=== PATIENT | female | born 1945 | race Hispanic/Latino ===

== ENCOUNTER 2019-01-26 15:25 | Emergency (ER) | payer OTHER ==
[2019-01-26] MEDS ORDERED: NA CHLORIDE 0.9% 1,000 ML ONE (16:21)
[2019-01-26 16:27] LABS: Absolute Lymphocytes (CBC) 2.1 K/uL (0.7-4.9); Basophils % 0.4 % (0-1.3); Hematocrit 37.3 % (36.0-45.0); Lymphocytes % 31.6 % (15.3-44.8); MPV 11.4 fL (7.6-11.3); RBC Red Blood Cell Count 4.29 M/uL (3.86-4.86)
[2019-01-26 16:32] LABS: Protime INR 1.01
[2019-01-26 16:46] LABS: ALT/SGPT 44 U/L (12-78); AST/SGOT 38 U/L (15-37); Albumin 3.4 g/dL (3.4-5.0); Alkaline Phosphatase 95 U/L (45-117); BUN Blood Urea Nitrogen 14 mg/dL (7-18); Bicarbonate 26 mmol/L (21-32); Bilirubin Direct 0.1 mg/dL (0-0.2); Bilirubin Total 0.2 mg/dL (0.2-1.0); Glucose Level 235 mg/dL (74-106); NT PRO-BNP 324 pg/mL (<125); Potassium 4.1 mmol/L (3.5-5.1); Protein, Total 7.2 g/dL (6.4-8.2); Sodium Level 141 mmol/L (136-145); Troponin (Emerg Dept Use Only) < 0.02 ng/mL (0.0-0.045)
[2019-01-26 16:48] LABS: Urine Blood NEGATIVE (NEG); Urine Glucose TRACE (NEG); Urine Protein NEGATIVE (NEG)
--- NOTE | 2019-01-26 17:00 | ER ---
Nurse's Notes [facility] Name: Luanne Fuller Age: 73 yrs Sex: Female : 1945 Arrival Date: 01/26/2019 Time: 15:31 Bed 7 Private MD: Polo Strong Diagnosis: Type 1 diabetes mellitus;Essential (primary) hypertension Presentation: 01/26 16:11 Presenting complaint: Patient states: BGL at home >300 for past 2-3 days even w/ meds, ph pt is insulin dependent. Transition of care: patient was not received from another setting of care. Onset of symptoms was January 26, 2019. Risk Assessment: Do you want to hurt yourself or someone else? Patient reports no desire to harm self or others. Initial Sepsis Screen: Does the patient meet any 2 criteria? No. Patient's initial sepsis screen is negative. Does the patient have a suspected source of infection? No. Patient's initial sepsis screen is negative. Care prior to arrival: None. 16:11 Method Of Arrival: Ambulatory ph 16:11 Acuity: DAYANA 3 ph Triage Assessment: 16:15 General: Appears in no apparent distress. comfortable, Behavior is calm, cooperative, ph appropriate for age. Pain: Denies pain. EENT: No deficits noted. Neuro: No deficits noted. Cardiovascular: No deficits noted. Respiratory: No deficits noted. GI: No signs and/or symptoms were reported involving the gastrointestinal system. : No signs and/or symptoms were reported regarding the genitourinary system. Derm: No deficits noted. Musculoskeletal: No deficits noted. Historical: - Allergies: 16:13 PENICILLINS; ph - PMHx: 16:13 Diabetes - IDDM; Hypertension; ph - Immunization history:: Adult Immunizations up to date. - Social history:: Smoking status: Patient/guardian denies using tobacco. - Ebola Screening: : No symptoms or risks identified at this time. - Family history:: not pertinent. Screenin:18 Abuse screen: Denies threats or abuse. Denies injuries from another. Nutritional ph screening: No deficits noted. Tuberculosis screening: No symptoms or risk factors identified. Fall Risk None identified. Assessment: 16:15 General: SEE TRIAGE NOTE. ph 17:36 Reassessment: PT D/C HOME AMBULATORY WITH FAMILY, DX WITH UTI AND HYPERGLYCEMIA. bp Vital Signs: 16:11 BP 179 / 68; Pulse 73; Resp 18; Temp 97.9; Pulse Ox 99% on R/A; Weight 70.31 kg; ph 17:36 BP 164 / 64; Pulse 70; Resp 16; Temp 98; Pulse Ox 97% ; bp ED Course: 15:31 Patient arrived in ED. mr 15:31 Polo Strong MD is Private Physician. mr 16:06 Lucas Smith, CHAPIS is Primary Nurse. rv 16:08 Ranjeet Kimball MD is Attending Physician. ori 16:12 Triage completed. ph 16:13 Arm band placed on. ph 16:18 Patient has correct armband on for positive identification. Bed in low position. Call ph light in reach. Side rails up X2. Adult w/ patient. 16:30 Urine Culture Sent. rv 16:30 Initial lab(s) drawn, by or, sent to lab. Urine collected: clean catch specimen, clear. rv Inserted saline lock: 20 gauge in right forearm, using aseptic technique. Blood collected. 16:42 XRAY Chest (1 view) In Process Unspecified. EDMS 16:56 Polo Strong MD is Referral Physician. ori 17:35 No provider procedures requiring assistance completed. IV discontinued, intact, bp bleeding controlled, No redness/swelling at site. Pressure dressing applied. Administered Medications: 16:29 Drug: NS 0.9% 1000 ml Route: IV; Rate: 1 bolus; Site: right forearm; rv 17:29 Follow up: IV Status: Completed infusion; IV Intake: 1000ml ss 17:26 Drug: LevOfloxacin 500 mg Route: PO; rv 17:29 Follow up: Response: Medication administered at discharge. Point of Care Testing: Blood Glucose: 16:11 Blood Glucose: 246 mg/dL; ph Ranges: Intake: 17:29 IV: 1000ml; Total: 1000ml. Outcome: 16:58 Discharge ordered by . ori 17:37 Discharged to home ambulatory, with family. bp 17:37 Condition: stable 17:37 Discharge instructions given to patient, Instructed on discharge instructions, follow up and referral plans. medication usage, Demonstrated understanding of instructions, follow-up care, medications, Prescriptions given X 1. 17:57 Patient left the ED. bp Signatures: Dispatcher [employer] EDWA Ranjeet Kimball MD MD cha Rivera, Mary mr Smirch, Shelby, RN RN ss Tylor, Ania, RN RN ph Luis Eduardo, Kevon, RN RN bp Lucas Smith, RN RN rv
--- NOTE | 2019-01-26 17:01 | EDPHYS ---
Physician Documentation [facility] Name: Luanne Fuller Age: 73 yrs Sex: Female : 1945 Arrival Date: 01/26/2019 Time: 15:31 Bed 7 Private MD: Polo Strong ED Physician Ranjeet Kimball HPI: 01/26 16:53 This 73 yrs old Female presents to ER via Ambulatory with complaints of High ori Blood Sugar. 16:53 The patient or guardian reports hyperglycemia. Onset: The symptoms/episode ori began/occurred 3 day(s) ago. Associated signs and symptoms: Pertinent positives: None. Pertinent negatives: None. Current symptoms: In the emergency department the patient's symptoms are unchanged from the initial presentation. The patient has experienced similar episodes in the past, several times. Historical: - Allergies: 16:13 PENICILLINS; ph - PMHx: 16:13 Diabetes - IDDM; Hypertension; ph - Immunization history:: Adult Immunizations up to date. - Social history:: Smoking status: Patient/guardian denies using tobacco. - Ebola Screening: : No symptoms or risks identified at this time. - Family history:: not pertinent. ROS: 16:53 Constitutional: Negative for fever, chills, and weight loss, Eyes: Negative for injury, ori pain, redness, and discharge, ENT: Negative for injury, pain, and discharge, Neck: Negative for injury, pain, and swelling, Cardiovascular: Negative for chest pain, palpitations, and edema, Respiratory: Negative for shortness of breath, cough, wheezing, and pleuritic chest pain, Abdomen/GI: Negative for abdominal pain, nausea, vomiting, diarrhea, and constipation, Back: Negative for injury and pain, : Negative for injury, bleeding, discharge, and swelling, MS/Extremity: Negative for injury and deformity, Skin: Negative for injury, rash, and discoloration, Neuro: Negative for headache, weakness, numbness, tingling, and seizure, Psych: Negative for depression, anxiety, suicide ideation, homicidal ideation, and hallucinations, Allergy/Immunology: Negative for hives, rash, and allergies, Endocrine: Negative for neck swelling, polydipsia, polyuria, polyphagia, and marked weight changes, Hematologic/Lymphatic: Negative for swollen nodes, abnormal bleeding, and unusual bruising. Exam: 16:53 Constitutional: This is a well developed, well nourished patient who is awake, alert, ori and in no acute distress. Head/Face: Normocephalic, atraumatic. Eyes: Pupils equal round and reactive to light, extra-ocular motions intact. Lids and lashes normal. Conjunctiva and sclera are non-icteric and not injected. Cornea within normal limits. Periorbital areas with no swelling, redness, or edema. ENT: Nares patent. No nasal discharge, no septal abnormalities noted. Tympanic membranes are normal and external auditory canals are clear. Oropharynx with no redness, swelling, or masses, exudates, or evidence of obstruction, uvula midline. Mucous membranes moist. Neck: Trachea midline, no thyromegaly or masses palpated, and no cervical lymphadenopathy. Supple, full range of motion without nuchal rigidity, or vertebral point tenderness. No Meningismus. Chest/axilla: Normal chest wall appearance and motion. Nontender with no deformity. No lesions are appreciated. Cardiovascular: Regular rate and rhythm with a normal S1 and S2. No gallops, murmurs, or rubs. Normal PMI, no JVD. No pulse deficits. Respiratory: Lungs have equal breath sounds bilaterally, clear to auscultation and percussion. No rales, rhonchi or wheezes noted. No increased work of breathing, no retractions or nasal flaring. Abdomen/GI: Soft, non-tender, with normal bowel sounds. No distension or tympany. No guarding or rebound. No evidence of tenderness throughout. Back: No spinal tenderness. No costovertebral tenderness. Full range of motion. Female : Normal external genitalia. Skin: Warm, dry with normal turgor. Normal color with no rashes, no lesions, and no evidence of cellulitis. MS/ Extremity: Pulses equal, no cyanosis. Neurovascular intact. Full, normal range of motion. Neuro: Awake and alert, GCS 15, oriented to person, place, time, and situation. Cranial nerves II-XII grossly intact. Motor strength 5/5 in all extremities. Sensory grossly intact. Cerebellar exam normal. Normal gait. Psych: Awake, alert, with orientation to person, place and time. Behavior, mood, and affect are within normal limits. Vital Signs: 16:11 BP 179 / 68; Pulse 73; Resp 18; Temp 97.9; Pulse Ox 99% on R/A; Weight 70.31 kg; ph 17:36 BP 164 / 64; Pulse 70; Resp 16; Temp 98; Pulse Ox 97% ; bp MDM: 16:[address] [facility] 16:54 Data reviewed: vital signs, nurses notes, lab test result(s), EKG, radiologic studies, ori plain films. 01/26 16:09 Order name: Basic Metabolic Panel; Complete Time: 16:52 [facility] 01/26 16:09 Order name: CBC with Diff [facility] 01/26 16:09 Order name: LFT's; Complete Time: 16:52 [facility] 01/26 16:09 Order name: Magnesium; Complete Time: 16:52 [facility] 01/26 16:09 Order name: NT PRO-BNP; Complete Time: 16:52 [facility] 01/26 16:09 Order name: PT-INR; Complete Time: 16:52 [facility] 01/26 16:09 Order name: Troponin (emerg Dept Use Only); Complete Time: 16:52 [facility] 01/26 16:09 Order name: XRAY Chest (1 view) [facility] 01/26 16:09 Order name: EKG; Complete Time: 16:12 [facility] 01/26 16:09 Order name: Urine Culture [facility] 01/26 16:10 Order name: Lipase; Complete Time: 16:55 [facility] 01/26 16:31 Order name: Urine Dipstick--Ancillary (enter results); Complete Time: 16:52 01/26 16:09 Order name: Cardiac monitoring; Complete Time: 16:30 [facility] 01/26 16:09 Order name: EKG - Nurse/Tech; Complete Time: 16:51 [facility] 01/26 16:09 Order name: IV Saline Lock; Complete Time: 16:30 [facility] 01/26 16:09 Order name: Labs collected and sent; Complete Time: 16:30 [facility] 01/26 16:09 Order name: O2 Per Protocol; Complete Time: 16:30 [facility] 01/26 16:09 Order name: O2 Sat Monitoring; Complete Time: 16:30 [facility] 01/26 16:09 Order name: Urine Dipstick-Ancillary (obtain specimen); Complete Time: 16:30 [facility] 01/26 16:56 Order name: Blood Glucose Level; Complete Time: 17:26 [facility] Administered Medications: 16:29 Drug: NS 0.9% 1000 ml Route: IV; Rate: 1 bolus; Site: right forearm; rv 17:29 Follow up: IV Status: Completed infusion; IV Intake: 1000ml 17:26 Drug: LevOfloxacin 500 mg Route: PO; rv 17:29 Follow up: Response: Medication administered at discharge. Point of Care Testing: Blood Glucose: 16:11 Blood Glucose: 246 mg/dL; ph Ranges: Critical Glucose Levels:Adult <50 mg/dl or >400 mg/dl <40 mg/dl or >180 mg/dl Disposition: 01/26/19 16:58 Discharged to Home. Impression: Type 1 diabetes mellitus, Essential (primary) hypertension. - Condition is Stable. - Discharge Instructions: Type 1 Diabetes Mellitus, Diagnosis, Adult, Hypertension, Hypertension, [id number], How to Take Your Blood Pressure, [id number], Managing Your Hypertension, Type 1 Diabetes Mellitus, Diagnosis, Adult, Nzpp-[id number], Type 1 Diabetes Mellitus, Self Care, Adult, [id number]. - Prescriptions for Levaquin 250 mg Oral Tablet - take 1 tablet by ORAL route once daily for 6 days; 6 tablet. - Medication Reconciliation Form, Thank You Letter, Antibiotic Education, Prescription Opioid Use form. - Follow up: Polo Strong MD; When: 2 - 3 days; Reason: Recheck today's complaints, Continuance of care, Re-evaluation by your physician. - Problem is new. - Symptoms have improved. Signatures: Dispatcher [employer] EDRanjeet Garza MD MD cha Hall, Patricia, RN RN Kevon Hoff RN RN Lucas Schofield, CHAPIS [place] Amada Solares RN Corrections: (The following items were deleted from the chart) 17:57 16:58 01/26/2019 16:58 Discharged to Home. Impression: Type 1 diabetes mellitus; bp Essential (primary) hypertension. Condition is Stable. Forms are Medication Reconciliation Form, Thank You Letter, Antibiotic Education, Prescription Opioid Use. Follow up: Polo Strong; When: 2 - 3 days; Reason: Recheck today's complaints, Continuance of care, Re-evaluation by your physician. Problem is new. Symptoms have improved. ori
[2019-01-26] MEDS ORDERED: levoFLOXacin 500 MG TAB ONE (17:10)
--- NOTE | 2019-01-26 17:10 | RAD REPORT ---
EXAM DESCRIPTION: RAD - Chest Single View - 01/26/2019 4:41 pm CLINICAL HISTORY: Cough COMPARISON: October 2013 TECHNIQUE: AP portable chest image was obtained 1638 hour . FINDINGS: Is a lung parenchymal process seen. Lung markings are accentuated by shallow inspiration. Heart size is prominent similar to comparison. No acute vascular engorgement. No measurable pleural e ffusion and no pneumothorax. No acute bony abnormality seen. No acute aortic findings suspected. IMPRESSION: No acute cardiopulmonary process. No significant change from comparison.
[2019-01-26 19:21] VITALS: BP 164/64; TEMP 98; O2SAT 97
--- NOTE | 2019-01-27 10:42 | EKG ---
Test Date: 2019-01-26 Test Time: 17:07:34 Club Waiter/Waitress: UDAY MEASUREMENT RESULTS: Intervals: Rate: 67 NJ: 104 QRSD: 84 QT: 412 QTc: 435 [place]: P: 2 NJ: 104 QRS: 14 T: 72 INTERPRETIVE STATEMENTS: Sinus rhythm with short NJ Nonspecific T wave abnormality Abnormal ECG Compared to ECG 10/22/2013 11:43:55 Short NJ interval now present T-wave abnormality still present Electronically Signed On 01-27-19 10:41:42 CDT by Damion Judge
== END 2019-01-26 17:57 | disposition home or self-care (01) ==
LOC: ER 15:25
DX: I10 Essential (primary) hypertension (principal); Z88.0 Allergy status to penicillin
CPT/HCPCS: 93005; 87088; 85025; 87086; 80048; 36415; 83735; 85610; 82962; 80076; 81003; 84484; 83690; 83880; 71045; 96360; 99284; J7030; 87077; 87186

== ENCOUNTER 2019-08-16 17:52 | Inpatient (IN) | payer OTHER ==
--- OUTSIDE RECORDS SUMMARY | 2019-08-16 17:53 | XMS REPORT ---
:1945 Author Organization [employer] Care Team Providers Name Role Phone Matty Hicks Provider Role Unavailable Allergies, Adverse Reactions, Alerts Substance Reaction Event Type N.K.D.A. 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 Problem Type 2 diabetes mellitus with E11.65 Active hyperglycemia, without long-term current use of insulin Problem Essential hypertension I10 Active Assessment Type 2 diabetes mellitus with E11.65 Active hyperglycemia, without long-term current use of insulin Assessment Essential hypertension I10 Active Problem Chronic Idiopathic 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 Active Medications Medication Code Code Instructions Start End Status Dosage System Date Date Aspir-Low [facility] 20843686543 81 MG Orally Active 1 tablet Once a day Docusate Sodium [facility] 02414875508 100 MG Orally Active 1 tablet as Twice a day needed Combigan [facility] 08490455450 0.2-0.5 % Active 1 drop into Ophthalmic affected eye Twice a day Azopt [facility] 54992447503 1 % Ophthalmic Active 1 drop into Three times a affected eye day Metformin HCl [facility] 70833318696 1000 MG Orally Active 1 tablet Twice a day with meals Losartan [facility] 15740507864 100-25 MG Active 1 tablet Potassium-HCTZ Orally Once a day Amitiza [facility] 25841083109 24 MCG Orally Active 1 capsule Twice a day with food and water Ozempic [facility] 68439167166 0.25 or 0.5 Active Inject 0.5 MG/DOSE mg SC once Subcutaneous weekly Once a week Lumigan [facility] 70528605016 0.01 % Active 1 drop into Ophthalmic Once affected eye a day in the evening Glimepiride [facility] 21343628965 1 MG Orally Active 1 tablet Twice a day with breakfast or the first main meal of the day Results No Known Results Summary Purpose [employer] Submission
[2019-08-16 19:30] LABS: Absolute Lymphocytes (CBC) 0.8 K/uL (0.7-4.9); Basophils % 0.1 % (0-1.3); Hematocrit 36.6 % (36.0-45.0); Lymphocytes % 4.5 % (15.3-44.8); MPV 11.5 fL (7.6-11.3); RBC Red Blood Cell Count 4.18 M/uL (3.86-4.86)
[2019-08-16 19:34] LABS: Protime INR 1.21
[2019-08-16] MEDS ORDERED: NA CHLORIDE 0.9% 500 ML ONE (19:44)
[2019-08-16 19:49] LABS: ALT/SGPT 21 U/L (12-78); AST/SGOT 18 U/L (15-37); Alkaline Phosphatase 101 U/L (45-117); Amylase Level 36 U/L (25-115); BUN Blood Urea Nitrogen 18 mg/dL (7-18); Bicarbonate 25 mmol/L (21-32); Bilirubin Direct 0.2 mg/dL (0-0.2); Bilirubin Total 0.6 mg/dL (0.2-1.0); CKMB Creatine Kinase MB < 1.0 ng/mL (0.3-3.6); Creatine Phosphokinase 219 U/L (26-192); Glucose Level 152 mg/dL (74-106); Lipase 117 U/L (73-393); Potassium 3.2 mmol/L (3.5-5.1); Sodium Level 138 mmol/L (136-145); Troponin (Emerg Dept Use Only) 0.08 ng/mL (0.0-0.045)
--- NOTE | 2019-08-16 19:51 | RAD REPORT ---
EXAM DESCRIPTION: Leo Single View08/16/2019 7:24 pm CLINICAL HISTORY: fever COMPARISON: 2018 FINDINGS: The lungs appear clear of acute infiltrate. The heart is normal size IMPRESSION: No acute abnormalities displayed
[2019-08-16 19:56] LABS: Blood Morphology Comment NOT SEEN (NOT SEEN); Platelet Estimate ADEQ; Urine White Blood Cell Casts OK
--- NOTE | 2019-08-16 20:53 | RAD REPORT ---
EXAM DESCRIPTION: CT - Abdomen Pelvis W Contrast - 08/16/2019 8:31 pm CLINICAL HISTORY: Abdominal pain COMPARISON: none. TECHNIQUE: Computed axial tomography of the abdomen pelvis was obtained. 100 cc Isovue-300 was admin istered intravenously. Oral contrast was not requested which limits evaluation of bowel. All CT scans are performed using dose optimization technique as appropriate and may include automated exposure control or mA/KV adjustment according to patient size. FINDINGS: 17 millimeter gallstone. The gallbladder is mildly distended. The liver, spleen, pancreas, and adrenals appear unremarkable. There is no evidence of diverticulitis. A thickened appendix is not seen Spondylosis L5 There is enhancement of the wall of the right renal pelvis and right ureter Small ventral hernia contains fat. Small umbilical hernia contains fat. An additional right periumbil ical hernia contains fat. The neck measures 20 millimeters IMPRESSION: Cholelithiasis. Mild gallbladder distention Enhancement of the wall of the right renal pelvis a right ureter may indicate inflammation/infection
[2019-08-16] MEDS ORDERED: CEFTRIAXONE/SWI 1gm 1 GM/10 ML SYR ONE (21:09)
[2019-08-16 21:16] LABS: Urine Bacteria 20-50 /HPF (<20); Urine Culture Reflex Order REFLEXED; Urine Mucus 2+ /HPF (NONE SEEN)
[2019-08-16] MEDS ORDERED: ONDANSETRON 4 MG/2 ML VIAL IV PRN (21:20)
[2019-08-16] MEDS ORDERED: ALPRAZOLAM 0.25 MG TABLET PO PRN (21:20)
--- NOTE | 2019-08-16 21:23 | ER ---
Nurse's Notes [facility] Name: Luanne Fuller Age: 73 yrs Sex: Female : 1945 Arrival Date: 08/16/2019 Time: 17:54 Bed 18 Private MD: Diagnosis: Urinary tract infection, site not specified-Pyelonephritis;Leukocytosis;Abdominal and pelvic pain Presentation: 08/15 18:37 Acuity: DAYANA 3 ae4 18:37 Chief complaint: Patient states: Chills, fever, and vomiting. Coronavirus screen: The ae4 patient has NOT traveled to a country currently being monitored by the [facility] within the last 14 days. Proceed with normal triage procedures. The patient has NOT had contact with any known and/or suspected case of coronavirus. Proceed with normal triage procedures. Initial Sepsis Screen: Does the patient meet any 2 criteria? No. Patient's initial sepsis screen is negative. Does the patient have a suspected source of infection?. Risk Assessment: Do you want to hurt yourself or someone else? Patient reports no desire to harm self or others. 18:37 Method Of Arrival: Ambulatory ae4 18:57 Ebola Screen: Patient negative for fever greater than or equal to 101.5 degrees ae4 Fahrenheit, and additional compatible Ebola Virus Disease symptoms Patient denies exposure to infectious person. Patient denies travel to an Ebola-affected area in the 21 days before illness onset. 22:41 Coronavirus screen: The patient has NOT traveled to a country currently being monitored mg2 by the [facility] within the last 14 days. Initial Sepsis Screen: Does the patient meet any 2 criteria? No. Patient's initial sepsis screen is negative. Does the patient have a suspected source of infection? No. Patient's initial sepsis screen is negative. Risk Assessment: Do you want to hurt yourself or someone else? Patient reports no desire to harm self or others. 22:42 Onset of symptoms was August 2019. mg2 Triage Assessment: 21:12 General: Appears. ae4 Historical: - Allergies: 21:30 PENICILLINS; ae4 - Home Meds: 21:31 Metformin Oral [Active]; glimepiride 1 mg Oral tab 1 tab once daily [Active]; ae4 - PMHx: 21:32 Diabetes - IDDM; Hypertension; ae4 - Immunization history:: Adult Immunizations up to date. - Social history:: Smoking status: Patient denies any tobacco usage or history of. Screenin:02 Abuse screen: Denies threats or abuse. Nutritional screening: No deficits noted. ae4 Tuberculosis screening: No symptoms or risk factors identified. Fall Risk None identified. Assessment: 18:35 General: Appears in no apparent distress. uncomfortable, Behavior is calm, cooperative. ae4 Pain: Complains of pain in abdomen. Neuro: Level of Consciousness is awake, alert, obeys commands, Oriented to person, place, time, situation, Appropriate for age. Cardiovascular: Heart tones S1 S2 present Patient's skin is warm and dry. Respiratory: Airway is patent Respiratory effort is even, unlabored, Respiratory pattern is regular, symmetrical, Breath sounds are clear bilaterally. GI: Abdomen is round non-distended, Bowel sounds present X 4 quads. GI: Reports vomiting. EENT: No signs and/or symptoms were reported regarding the EENT system. Derm: Skin is pale. Musculoskeletal: Reports Generalized weakness. 18:35 : Urine is cloudy, Denies burning with urination, pain urinary frequency, urgency. ae4 19:00 Reassessment: Patient appears in no apparent distress at this time. Patient and/or ae4 family updated on plan of care and expected duration. Pain level reassessed. 20:00 Reassessment: Patient appears in no apparent distress at this time. Patient and/or ae4 family updated on plan of care and expected duration. Pain level reassessed. Patient states feeling better. 21:15 Reassessment: Provider is at bedside discussing plan of care. ae4 22:09 Reassessment: Patient appears in no apparent distress at this time. Patient and/or ae4 family updated on plan of care and expected duration. Pain level reassessed. Family at bedside Patient states feeling better. Vital Signs: 18:37 BP 125 / 62; Pulse 95; Resp 16; Pulse Ox 97% on R/A; Weight 66.68 kg (R); Height 5 ft. ae4 2 in. (157.48 cm) (R); 18:46 Temp 98.6(TE); ss 22:09 BP 128 / 46; Pulse 79; Resp 16; Pulse Ox 98% on R/A; ae4 18:37 Body Mass Index 26.89 (66.68 kg, 157.48 cm) ae4 ED Course: 17:54 Patient arrived in ED. rg4 17:56 Subhash Thomson MD is Attending Physician. kdr 18:38 Triage completed. ae4 18:46 Arm band placed on right wrist. ss 19:01 Arsh Ochoa FNP-C is [facility] la1 19:08 Gray Hoffman, RN is Primary Nurse. ae4 19:15 Inserted saline lock: 18 gauge in right antecubital area, using aseptic technique. ae4 Blood collected. 19:24 Chest Single View XRAY In Process Unspecified. EDMS 20:32 CT Abd/Pelvis - IV Contrast Only In Process Unspecified. EDMS 21:20 Cecilia Plata MD is Hospitalizing Provider. la1 21:21 No provider procedures requiring assistance completed. Inserted. ae4 22:41 Patient admitted, IV remains in place. mg2 22:42 Patient has correct armband on for positive identification. mg2 Administered Medications: 19:50 Drug: NS 0.9% 500 ml Route: IV; Rate: bolus; Site: right antecubital; ae4 21:10 Drug: Rocephin 1 grams Route: IV; Rate: calculated rate; Site: right antecubital; ae4 Outcome: 21:22 Decision to Hospitalize by Provider. la1 22:41 Admitted to Med/surg accompanied by tech, via wheelchair, room 207, with chart, Report mg2 called to CHAPIS Torre 22:41 Condition: improved 22:41 Instructed on the need for admit, Demonstrated understanding of instructions. 23:01 Patient left the ED. mg2 Signatures: Dispatcher [employer] EDLA Subhash Thomson MD MD kdr Amada Solares RN RN ss Arsh Ochoa FNP-C FNP-Earline Putnam rg4 Viral Magallon RN RN mg2 Gray Hoffman, RN RN ae4 Corrections: (The following items were deleted from the chart) 22:13 22:09 Pulse 79bpm; Resp 79bpm; Pulse Ox 98% RA; ae4 ae4 22:42 21:32 Ebola Screen: Patient negative for fever greater than or equal to 101.5 degrees ae4 Fahrenheit, and additional compatible Ebola Virus Disease symptoms Patient denies exposure to infectious person. Patient denies travel to an Ebola-affected area in the 21 days before illness onset. ae4 22:42 18:35 : Urine is cloudy, ae4 ae4
--- NOTE | 2019-08-16 21:23 | EDPHYS ---
Physician Documentation [facility] Name: Luanne Fuller Age: 73 yrs Sex: Female : 1945 Arrival Date: 08/16/2019 Time: 17:54 Bed 18 Private MD: ED Physician Subhash Thomson HPI: 08/15 20:45 This 73 yrs old Female presents to ER via Unassigned with complaints of Fever, la1 Chills, Vomiting. 20:45 The patient reports fever, not measured (subjective). Onset: The symptoms/episode la1 began/occurred 2 day(s) ago. Modifying factors: unaware of sick contact. Denies recent travel. Associated signs and symptoms: Pertinent positives: backache, nausea, vomiting, abdominal pain. Severity of symptoms: At their worst the symptoms were moderate. The patient has not experienced similar symptoms in the past. Historical: - Allergies: 21:30 PENICILLINS; ae4 - Home Meds: 21:31 Metformin Oral [Active]; glimepiride 1 mg Oral tab 1 tab once daily [Active]; ae4 - PMHx: 21:32 Diabetes - IDDM; Hypertension; ae4 - Immunization history:: Adult Immunizations up to date. - Social history:: Smoking status: Patient denies any tobacco usage or history of. ROS: 20:45 Constitutional: Negative for fever, chills, and weight loss, Eyes: Negative for injury, la1 pain, redness, and discharge, ENT: Negative for injury, pain, and discharge, Neck: Negative for injury, pain, and swelling, Cardiovascular: Negative for chest pain, palpitations, and edema, Respiratory: Negative for shortness of breath, cough, wheezing, and pleuritic chest pain. 20:45 MS/Extremity: Negative for injury and deformity, Skin: Negative for injury, rash, and discoloration, Neuro: Negative for headache, weakness, numbness, tingling, and seizure. 20:45 Abdomen/GI: Positive for abdominal pain, nausea and vomiting. 20:45 : Positive for urinary symptoms, urinary frequency, burning with urination. Exam: 20:46 Constitutional: This is a well developed, well nourished patient who is awake, alert, la1 and in no acute distress. Head/Face: Normocephalic, atraumatic. Eyes: Pupils equal round and reactive to light, extra-ocular motions intact. ENT: Mucous membranes moist. Neck: Trachea midline Chest/axilla: Normal chest wall appearance and motion. Nontender with no deformity. No lesions are appreciated. Cardiovascular: Regular rate and rhythm with a normal S1 and S2. No gallops, murmurs, or rubs. Normal PMI, no JVD. No pulse deficits. Respiratory: Lungs have equal breath sounds bilaterally, clear to auscultation 20:46 Back: No spinal tenderness. No costovertebral tenderness. Full range of motion. Skin: Warm, dry with normal turgor. Normal color with no rashes, no lesions, and no evidence of cellulitis. 20:46 Abdomen/GI: Inspection: abdomen appears normal, obese Bowel sounds: normal, in all quadrants, Palpation: soft, in all quadrants, mild abdominal tenderness, in the right lower quadrant, Indicators: McBurney's point is tender, Partida's sign is negative, Rovsing's sign is negative, Obturator sign is negative, Psoas sign is negative. Vital Signs: 18:37 BP 125 / 62; Pulse 95; Resp 16; Pulse Ox 97% on R/A; Weight 66.68 kg (R); Height 5 ft. ae4 2 in. (157.48 cm) (R); 18:46 Temp 98.6(TE); ss 22:09 BP 128 / 46; Pulse 79; Resp 16; Pulse Ox 98% on R/A; ae4 18:37 Body Mass Index 26.89 (66.68 kg, 157.48 cm) ae4 MDM: 19:01 Patient medically screened. la1 21:19 Data reviewed: vital signs, nurses notes, lab test result(s), radiologic studies, I la1 have discussed the patient's presentation/case with the attending Emergency Department Physician; and as a result, I will admit patient. Data interpreted: Pulse oximetry: on room air is 97 %. Interpretation: normal. Counseling: I had a detailed discussion with the patient and/or guardian regarding: the historical points, exam findings, and any diagnostic results supporting the discharge/admit diagnosis, lab results, radiology results, the need for further work-up and treatment in the hospital. Physician consultation: Cecilia Plata MD was called at 21:19, was contacted at 21:19, regarding admission, and will see patient in inpatient room. 08/15 18:52 Order name: Amylase, Serum kdr 08/15 18:52 Order name: Basic Metabolic Panel [facility] 08/15 18:52 Order name: Blood Culture Adult (2) kdr 08/15 18:52 Order name: CBC with Diff; Complete Time: 20:12 kdr 08/15 18:52 Order name: Ckmb kdr 08/15 18:52 Order name: CPK; Complete Time: 20:12 kdr 08/15 18:52 Order name: Lactate; Complete Time: 20:12 kdr 08/15 18:52 Order name: LFT's; Complete Time: 20:12 kdr 08/15 18:52 Order name: Lipase; Complete Time: 20:12 kdr 08/15 18:52 Order name: Procalcitonin; Complete Time: 20:12 kdr 08/15 18:52 Order name: Protime (+inr); Complete Time: 20:12 kdr 08/15 18:52 Order name: Ptt, Activated; Complete Time: 20:12 kdr 08/15 18:52 Order name: Troponin (emerg Dept Use Only); Complete Time: 20:12 kdr 08/15 18:52 Order name: Urine Microscopic Only kdr 08/15 18:55 Order name: Amylase Level; Complete Time: 20:12 EDMS 08/15 18:55 Order name: Basic Metabolic Panel; Complete Time: 20:12 EDMS 08/15 18:55 Order name: CKMB Creatine Kinase MB; Complete Time: 20:12 EDMS 08/15 19:25 Order name: Glucose, Ancillary Testing; Complete Time: 20:12 EDMS 08/15 19:28 Order name: Flu; Complete Time: 21:00 la1 08/15 19:36 Order name: CBC Smear Scan; Complete Time: 20:12 EDMS 08/15 21:19 Order name: Urine Culture EDMS 08/15 21:21 Order name: Urine Dipstick--Ancillary (enter results) sp 08/15 21:25 Order name: Urinalysis EDMS 08/15 21:25 Order name: CBC with Automated Diff EDMS 08/15 21:25 Order name: CBC with Automated Diff EDMS 08/15 21:25 Order name: Comprehensive Metabolic Panel EDWA 08/15 21:25 Order name: Comprehensive Metabolic Panel EDWA 08/15 21:25 Order name: Lactate EDWA 08/15 21:25 Order name: Lactate EDWA 08/15 21:25 Order name: Magnesium EDWA 08/15 18:52 Order name: Chest Single View XRAY; Complete Time: 20:12 kdr 08/15 18:52 Order name: Accucheck; Complete Time: 19:13 kdr 08/15 18:52 Order name: Cardiac monitoring; Complete Time: 19: kdr 08/15 18:52 Order name: EKG - Nurse/Tech; Complete Time: 20:06 kdr 08/15 18:52 Order name: IV Saline Lock - Large Bore; Complete Time: 19: kdr 08/15 18:52 Order name: Labs collected and sent; Complete Time: 19:24 kdr 08/15 18:52 Order name: O2 Per Protocol; Complete Time: 19: kdr 08/15 18:52 Order name: O2 Sat Monitoring; Complete Time: 19: kdr 08/15 18:52 Order name: Urine Dipstick-Ancillary (obtain specimen); Complete Time: : kdr 08/15 20:15 Order name: CT Abd/Pelvis - IV Contrast Only; Complete Time: 21:00 la1 08/15 21:25 Order name: CONS Physician Consult [facility] 08/15 21:25 Order name: NPO [facility] 08/15 21:25 Order name: Magnesium [facility] 08/15 21:25 Order name: Phosphorus [facility] 08/15 21:25 Order name: Phosphorus [facility] 08/15 21:25 Order name: NT PRO-BNP [facility] 08/15 21:25 Order name: NT PRO-BNP [facility] 08/15 21:25 Order name: Protime (+INR) [facility]WA 08/15 21:25 Order name: Protime (+INR) [facility] 08/15 21:25 Order name: PTT, Activated Partial Thromb [facility] 08/15 21:25 Order name: PTT, Activated Partial Thromb [facility]WA 08/15 21:25 Order name: Troponin I [facility] 08/15 21:25 Order name: Troponin I [facility] 08/15 21:25 Order name: Troponin I EDWA Administered Medications: 19:50 Drug: NS 0.9% 500 ml Route: IV; Rate: bolus; Site: right antecubital; ae4 21:10 Drug: Rocephin 1 grams Route: IV; Rate: calculated rate; Site: right antecubital; ae4 Disposition: 08/16/19 21:22 Hospitalization ordered by Cecilia Plata for Observation. Preliminary diagnosis are Urinary tract infection, site not specified - Pyelonephritis, Leukocytosis, Abdominal and pelvic pain. - Bed requested for Telemetry/MedSurg (observation). - Status is Observation. mg2 - Condition is Stable. - Problem is new. - Symptoms have improved. Addendum: 08/19/2019 10:47 Co-signature as Attending Physician, Subhash Thomson MD I agree with the assessment and k dr plan of care. Signatures: Dispatcher [employer] EDWA Subhash Thomson MD MD [facility] Marisel Juarez RN RN lp1 Arsh Ochoa, UTILITIES SERVICE INVESTIGATOR-C UTILITIES SERVICE INVESTIGATOR-Cla1 Viral Magallon RN RN mg2 Gray Hoffman RN RN ae4 Corrections: (The following items were deleted from the chart) 08/15 22:22 21:22 Hospitalization Ordered by Cecilia Plata MD for Observation. Preliminary lp1 diagnosis is Urinary tract infection, site not specified - Pyelonephritis; Leukocytosis; Abdominal and pelvic pain. Bed requested for Telemetry/MedSurg (observation). Status is Observation. Condition is Stable. Problem is new. Symptoms have improved. la1 23:01 22:22 08/16/2019 21:22 Hospitalization Ordered by Cecilia Plata MD for Observation. mg2 Preliminary diagnosis is Urinary tract infection, site not specified - Pyelonephritis; Leukocytosis; Abdominal and pelvic pain. Bed requested for Telemetry/MedSurg (observation). Status is Observation. Condition is Stable. Problem is new. Symptoms have improved. lp1
[2019-08-16 21:26] LABS: Urine Blood 3+ (NEG); Urine Glucose NEGATIVE (NEG); Urine Protein 2+ (NEG); Urine Specific Gravity 1.015 (1.005-1.030); Urine pH 6.5 (5.0-7.0)
[2019-08-16] MEDS ORDERED: Levofloxacin500mg IV 500 MG/100 ML BAG IV SCH (22:00)
[2019-08-16 23:30] VITALS: BMI 23.3
[2019-08-16] MEDS: METRONIDAZOLE 500mg IVPB 500 MG/100 ML BAG IV SCH (23:54)
[2019-08-16] MEDS: NA CHLORIDE 0.9% 1,000 ML IV SCH (23:54)
[2019-08-17] MEDS: METRONIDAZOLE 500mg IVPB 500 MG/100 ML BAG IV SCH ×2 (05:21→12:05)
[2019-08-17 05:46] LABS: Absolute Lymphocytes (CBC) 0.6 K/uL (0.7-4.9); Basophils % 0.1 % (0-1.3); Hematocrit 33.8 % (36.0-45.0); Lymphocytes % 3.1 % (15.3-44.8); MPV 10.9 fL (7.6-11.3); RBC Red Blood Cell Count 3.96 M/uL (3.86-4.86)
[2019-08-17 05:52] LABS: Protime INR 1.32
[2019-08-17 06:08] LABS: Albumin 2.6 g/dL (3.4-5.0); Bilirubin Total 0.4 mg/dL (0.2-1.0); Magnesium 1.7 mg/dL (1.8-2.4); Phosphorus 1.4 mg/dL (2.5-4.9); Potassium 3.4 mmol/L (3.5-5.1); Protein, Total 6.4 g/dL (6.4-8.2)
[2019-08-17] MEDS ORDERED: MAGNESIUM SULFATE 1 gm IVPB 1 GM/100 ML BAG IV ONE (06:30)
[2019-08-17 06:57] LABS: Blood Morphology Comment NOT SEEN (NOT SEEN); Platelet Estimate DECR
--- NOTE | 2019-08-17 06:59 | P.HP ---
Certification for Inpatient Patient admitted to: Inpatient With expected LOS: >2 Midnights Patient will require the following post-hospital care: None Practitioner: I am a practitioner with admitting privileges, knowledge of patient current condition, hospital course, and medical plan of care. Services: Services provided to patient in accordance with Admission requirements found in Title 42 Section 412.3 of the Code of Federal Regulations Patient History Date of Service: 08/16/19 Reason for admission: Pyelonephritis/gallbladder distention History of Present Illness: Patient is a 73-year-old female came to the hospital with abdominal pain. The patient had right-sided tenderness which was severe. Patient had a CT scan which revealed pyelonephritis along with gallbladder distention. Patient was admitted to the hospital for further evaluation. Patient was found have leukocytosis and thrombocytopenia. Patient also had elevated procalcitonin level and elevated lactate level. Patient was admitted to the hospital for further evaluation. Patient was started on IV antibiotic therapy. Patient with multiple risk factors. Patient with a history of hypertension and diabetes. Allergies NKDA Allergy (Uncoded 08/17/19 00:19) Unknown Home Medications: Aspirin [Tristin Chewable Aspirin] 81 mg PO DAILY 08/17/19 Glimepiride 1 mg PO BID 08/17/19 - Past Medical/Surgical History Has patient received pneumonia vaccine in the past: No Diabetic: Yes -: Diabetes -: High Cholesterol -: hyperlipidemia -: HTN -: brittany cataract sx -: hernia repair - Family History Mother Medical History: Diabetes - Social History Smoking Status: Never smoker Alcohol use: No Caffeine use: Yes Place of Residence: Home Review of Systems 10-point ROS is otherwise unremarkable Physical Examination - Vital Signs Temperature: 97.4 F Blood Pressure: 113/53 Pulse: 98 Respirations: 16 Pulse Ox (%): 97 - Physical Exam General: Alert, In no apparent distress, Oriented x3 HEENT: Atraumatic, PERRLA, Mucous membr. moist/pink, EOMI, Sclerae nonicteric Neck: Supple, 2+ carotid pulse no bruit, No LAD, Without JVD or thyroid abnormality Respiratory: Clear to auscultation bilaterally, Normal air movement Cardiovascular: Regular rate/rhythm, Normal S1 S2, No murmurs Gastrointestinal: Normal bowel sounds, Soft and benign, Non-distended, Tenderness (Right epigastric and right upper quadrant) Musculoskeletal: No clubbing, No swelling, No tenderness Integumentary: No rashes Neurological: Normal gait, Normal speech, Normal strength at 5/5 x4 extr, Normal tone, Sensation intact, Cranial nerves 3-12 intact, Normal affect Lymphatics: No axilla or inguinal lymphadenopathy - Studies Laboratory Data (last 24 hrs) 08/16/19 19:14: PT 14.2 H, INR 1.21, APTT 27.8 08/16/19 19:14: WBC 17.1 H, Hgb 12.1, Hct 36.6, Plt Count 116 L 08/16/19 19:14: Sodium 138, Potassium 3.2 L, BUN 18, Creatinine 0.82, Glucose 152 H, Total Bilirubin 0.6, AST 18, ALT 21, Alkaline Phosphatase 101, Amylase 36 , Lipase 117 Microbiology Data (last 24 hrs): 08/16/19 19:46 Nasopharnyx Influenza Type A Antigen Screen - Final 08/16/19 19:46 Nasopharnyx Influenza Type B Antigen Screen - Final Assessment & Plan - Problems (Diagnosis) (1) Pyelonephritis of right kidney Current Visit: Yes Status: Acute (2) Gallbladder disease Current Visit: Yes Status: Acute (3) Elevated procalcitonin Current Visit: Yes Status: Acute (4) Leukocytosis Current Visit: Yes Status: Acute (5) Elevated lactic acid level Current Visit: Yes Status: Acute (6) Thrombocytopenia Current Visit: Yes Status: Acute (7) Elevated troponin Current Visit: Yes Status: Acute - Plan Plan: 1. Aggressive IV hydration 2. IV antibiotic therapy 3. Pain control 4. Surgery consultation 5. Monitor labs closely 6. Discharge Plan: Home Plan to discharge in: Greater than 2 days - Advance Directives Does patient have a Living Will: No Does patient have a Durable POA for Healthcare: No - Code Status/Comfort Care Code Status Assessed: Yes Code Status: Full Code Critical Care: No Time Spent Managing PTS Care (In Minutes): 45
[2019-08-17] MEDS ORDERED: POTASSIUM PHOS IN 0.9 % NACL 15 MMOL/250 ML BAG IV ONE (08:00)
[2019-08-17] MEDS ORDERED: CEFTRIAXONE/SWI 1gm 1 GM/10 ML SYR IV SCH (08:00)
[2019-08-17] MEDS: ENOXAPARIN 40 MG/0.4 ML SQ SCH (08:47)
[2019-08-17] MEDS: NA CHLORIDE 0.9% 1,000 ML IV SCH ×2 (08:48→18:16)
[2019-08-17] MEDS ORDERED: KCL 20 MEQ/100 mL IVPB 20 MEQ/100 ML BAG IV SCH (09:00)
--- NOTE | 2019-08-17 11:40 | P.PN ---
Subjective Date of Service: 08/17/19 Chief Complaint: Pyelonephritis/gallbladder distention Patient states abdominal pain is better. She has been afebrile. She denies diarrhea, nausea or vomiting. Physical Examination - Vital Signs Temperature: 98.2 F Blood Pressure: 102/43 Pulse: 92 Respirations: 20 Pulse Ox (%): 98 - Physical Exam General: Alert, In no apparent distress, Oriented x3 HEENT: Mucous membr. moist/pink, Sclerae nonicteric Neck: Supple, JVD not distended Respiratory: Clear to auscultation bilaterally, Normal air movement Cardiovascular: No edema, Regular rate/rhythm, Normal S1 S2 Gastrointestinal: Normal bowel sounds, Soft and benign, Tenderness (Mild RUQ tenderness..) Musculoskeletal: No swelling, No erythema Integumentary: No rashes Neurological: Other (Nonfocal) - Studies Laboratory Data (last 24 hrs) 08/17/19 05:35: Sodium 140, Potassium 3.4 L, BUN 15, Creatinine 0.79, Glucose 167 H, Phosphorus 1.4 L, Magnesium 1.7 L, Total Bilirubin 0.4, AST 27, ALT 17, Alkaline Phosphatase 94 08/17/19 05:35: PT 15.4 H, INR 1.32, APTT 28.3 08/17/19 05:35: WBC 17.8 H, Hgb 11.4 L, Hct 33.8 L, Plt Count 99 L 08/17/19 00:19: Troponin I 0.06 H 08/16/19 19:14: PT 14.2 H, INR 1.21, APTT 27.8 08/16/19 19:14: WBC 17.1 H, Hgb 12.1, Hct 36.6, Plt Count 116 L 08/16/19 19:14: Sodium 138, Potassium 3.2 L, BUN 18, Creatinine 0.82, Glucose 152 H, Total Bilirubin 0.6, AST 18, ALT 21, Alkaline Phosphatase 101, Amylase 36 , Lipase 117 Microbiology Data (last 24 hrs): 08/16/19 19:46 Nasopharnyx Influenza Type A Antigen Screen - Final 08/16/19 19:46 Nasopharnyx Influenza Type B Antigen Screen - Final Assessment And Plan - Current Problems (Diagnosis) (1) Elevated troponin Current Visit: Yes Status: Acute (2) Gallbladder disease Current Visit: Yes Status: Acute (3) Leukocytosis Current Visit: Yes Status: Acute (4) Pyelonephritis of right kidney Current Visit: Yes Status: Acute - Plan Troponin trended up to 0.18. Patient is asymptomatic. Troponin elevation likely secondary to sepsis. Obtain echocardiogram to check wall motion abnormality Continue antibiotics Follow cultures Monitor CBC Surgery consult is pending.
[2019-08-17] MEDS: PIPER/TAZO/NS 3.375gm 3.375 GM/100 ML BAG IVPB SCH (18:15)
--- NOTE | 2019-08-17 19:50 | P.CNS ---
Date of Consult: 08/17/19 PC: I was asked to see this 73-year-old female regards to some right-sided abdominal pain. HPC: Patient apparently has not been feeling well for a while. Came to the emergency room for evaluation treatment. PMH: Hypertension PSHx: Negative SOC: No known allergy SYS REVIEW: Says that she has otherwise been healthy her weight has been steady O/E awake alert comfortable at the moment asking for food HEENT: Not jaundice Chest: Chest movement equal bilaterally ABD: Mild abdominal tenderness LOCO: Intact DATA: Elevated white cell count IMPRESSION: This patient presents emergency room with severe right-sided abdominal pain. She has has gallbladder distention as well as a pyelonephritis on the right side. She also has possible cardiac issues. Once these had been dealt with, and she has been on antibiotics for 24-48 hr, will consider take due to the operating room for laparoscopic cholecystectomy with cholangiogram. This was explained to her and her family. In the meantime I will give her a diet this evening, and re-evaluate once again tomorrow. An echocardiogram has been ordered apparently.
[2019-08-17] MEDS ORDERED: POTASSIUM CL SA 10 MEQ TAB PO ONE (21:00)
[2019-08-18] MEDS: PIPER/TAZO/NS 3.375gm 3.375 GM/100 ML BAG IVPB SCH ×3 (00:09→17:06)
[2019-08-18] MEDS: NA CHLORIDE 0.9% 1,000 ML IV SCH ×3 (04:00→13:30)
[2019-08-18 06:56] LABS: Absolute Lymphocytes (CBC) 1.4 K/uL (0.7-4.9); Basophils % 0.1 % (0-1.3); Hematocrit 32.1 % (36.0-45.0); Lymphocytes % 9.2 % (15.3-44.8); MPV 11.8 fL (7.6-11.3); RBC Red Blood Cell Count 3.69 M/uL (3.86-4.86)
[2019-08-18 07:12] LABS: Phosphorus 1.2 mg/dL (2.5-4.9)
[2019-08-18 07:21] LABS: BUN Blood Urea Nitrogen 12 mg/dL (7-18); Bicarbonate 24 mmol/L (21-32); Glucose Level 174 mg/dL (74-106); Potassium 3.6 mmol/L (3.5-5.1); Sodium Level 138 mmol/L (136-145)
[2019-08-18] MEDS ORDERED: HYDRALAZINE HCL 20 MG/ML VIAL IV PRN (08:54)
[2019-08-18] MEDS ORDERED: POTASSIUM PHOS IN 0.9 % NACL 15 MMOL/250 ML BAG IV ONE (09:00)
[2019-08-18] MEDS: ENOXAPARIN 40 MG/0.4 ML SQ SCH (10:02)
[2019-08-18] MEDS: ACETAMINOPHEN 500 MG TAB PO PRN ×2 (10:02→22:27)
--- NOTE | 2019-08-18 11:28 | P.PN ---
Subjective Date of Service: 08/18/19 Chief Complaint: Pyelonephritis/gallbladder distention Patient complaining of suprapubic pain. She is also complaining of chest pain. Chest pain is reproducible by palpation. She also report a lump in her left breast. She has been afebrile. Leukocytosis has trended down. Urine culture is growing E. coli. Physical Examination - Vital Signs Temperature: 98.2 F Blood Pressure: 140/67 Pulse: 89 Respirations: 15 Pulse Ox (%): 97 - Physical Exam General: Alert, In no apparent distress, Oriented x3 HEENT: Mucous membr. moist/pink Neck: Supple, JVD not distended Respiratory: Clear to auscultation bilaterally, Normal air movement Cardiovascular: No edema, Normal pulses, Regular rate/rhythm Gastrointestinal: Normal bowel sounds, Soft and benign, Non-distended, Tenderness (Mild suprapubic tenderness) Musculoskeletal: Other (Left anterior chest wall is tender to palpation.) Integumentary: No rashes Neurological: Other (Nonfocal) - Studies Microbiology Data (last 24 hrs): 08/16/19 20:50 Clean Catch Urine [place] Count - Final >100,000 CFU/ML. 08/16/19 20:50 Clean Catch Urine - Final Escherichia Coli 08/16/19 19:14 Blood - Blood Anaerobic Blood Culture - Final Assessment And Plan - Current Problems (Diagnosis) (1) Elevated troponin Current Visit: Yes Status: Acute (2) Gallbladder disease Current Visit: Yes Status: Acute (3) Leukocytosis Current Visit: Yes Status: Acute (4) Pyelonephritis of right kidney Current Visit: Yes Status: Acute - Plan Continue antibiotics Follow blood cultures Monitor CBC Pain management as needed. Increase activity as tolerated. Surgery input appreciated. Breast ultrasound as an outpatient. Echocardiogram is pending.
[2019-08-18] MEDS ORDERED: MORPHINE 2 MG/ML SYR IV ONE (22:23)
[2019-08-19] MEDS: PIPER/TAZO/NS 3.375gm 3.375 GM/100 ML BAG IVPB SCH ×2 (00:09→09:23)
[2019-08-19 00:26] VITALS: O2SAT 98
[2019-08-19 05:27] LABS: Absolute Lymphocytes (CBC) 1.4 K/uL (0.7-4.9); Basophils % 0.4 % (0-1.3); Hematocrit 36.5 % (36.0-45.0); Lymphocytes % 14.1 % (15.3-44.8); MPV 11.2 fL (7.6-11.3)
[2019-08-19 05:42] LABS: Albumin 2.6 g/dL (3.4-5.0); Bilirubin Total 0.5 mg/dL (0.2-1.0); Phosphorus 1.9 mg/dL (2.5-4.9); Potassium 3.5 mmol/L (3.5-5.1); Protein, Total 6.8 g/dL (6.4-8.2)
[2019-08-19] MEDS ORDERED: POTASS/SODIUM PHOSPHATE 1 PKT POWD.PACK PO SCH (06:00)
--- NOTE | 2019-08-19 06:58 | EKG ---
Test Date: 2019-08-16 Test Time: 20:04:46 Material Handler 1St Shift: DEMETRIS MEASUREMENT RESULTS: Intervals: Rate: 97 PA: 138 QRSD: 82 QT: 374 QTc: 474 [place]: P: 17 PA: 138 QRS: -4 T: 20 INTERPRETIVE STATEMENTS: Normal sinus rhythm ST abnormality, possible digitalis effect Abnormal ECG Compared to ECG 01/26/2019 17:07:34 ST (T wave) deviation now present Short PA interval no longer present T-wave abnormality no longer present Electronically Signed On 08-19-19 06:55:19 CDT by Will Nation
--- NOTE | 2019-08-19 08:31 | RAD REPORT ---
EXAM DESCRIPTION: US - Abdomen Exam Complete - 08/18/2019 10:16 pm CLINICAL HISTORY: Abdominal pain. Evaluate for cholecystitis, has R pyelonephritis COMPARISON: Abdomen Pelvis W Contrast dated 08/16/2019 FINDINGS: The liver parenchyma is mildly echogenic. No focal liver lesions or intrahepatic biliary d ilatation is seen. Gallstones are present in the gallbladder with 16 mm stone present in the region of the gallbladder n zander. The gallbladder is mildly distended however there is no evidence of pericholecystic fluid or wal l thickening. Common bile duct is normal in caliber measuring 4 mm. Both kidneys are normal in size, shape and echotexture. No hydronephrosis, focal lesion of concern or perinephric fluid. The spleen is normal in size measuring 9 cm. The pancreas and aorta are obscured by bowel gas. The visualized aspects of the IVC are grossly normal. IMPRESSION: Cholelithiasis. No sonographic evidence of acute cholecystitis seen. Mild fatty liver.
[2019-08-19] MEDS: ENOXAPARIN 40 MG/0.4 ML SQ SCH (09:00)
[2019-08-19] MEDS ORDERED: POTASSIUM CL SA 10 MEQ TAB PO ONE (09:00)
[2019-08-19] MEDS: NA CHLORIDE 0.9% 1,000 ML IV SCH ×2 (09:24)
[2019-08-19] MEDS: POTASS/SODIUM PHOSPHATE 1 PKT POWD.PACK PO SCH ×3 (09:24→11:14)
--- NOTE | 2019-08-19 11:57 | P.DS ---
Admission Date: 08/17/19 Discharge Date: 08/19/19 Primary Care Provider: Dr. Hicks Disposition: ROUTINE DISCHARGE Discharge Condition: GOOD Reason for Admission: Pyelonephritis/gallbladder distention Consultations: Surgery: Dr. Dougherty Procedures: Ct Scan: FINDINGS: 17 millimeter gallstone. The gallbladder is mildly distended. The liver, spleen, pancreas, and adrenals appear unremarkable. There is no evidence of diverticulitis. A thickened appendix is not seen Spondylosis L5 There is enhancement of the wall of the right renal pelvis and right ureter Small ventral hernia contains fat. Small umbilical hernia contains fat. An additional right periumbilical hernia contains fat. The neck measures 20 millimeters IMPRESSION: Cholelithiasis. Mild gallbladder distention Enhancement of the wall of the right renal pelvis a right ureter may indicate inflammation/infection ABUS: FINDINGS: The liver parenchyma is mildly echogenic. No focal liver lesions or intrahepatic biliary dilatation is seen. Gallstones are present in the gallbladder with 16 mm stone present in the region of the gallbladder neck. The gallbladder is mildly distended however there is no evidence of pericholecystic fluid or wall thickening. Common bile duct is normal in caliber measuring 4 mm. Both kidneys are normal in size, shape and echotexture. No hydronephrosis, focal lesion of concern or perinephric fluid. The spleen is normal in size measuring 9 cm. The pancreas and aorta are obscured by bowel gas. The visualized aspects of the IVC are grossly normal. IMPRESSION: Cholelithiasis. No sonographic evidence of acute cholecystitis seen. Mild fatty liver. Medical Problem List: Right pyelonephritis with bacteremia, urine and blood culture positive for E coli Cholelithiasis without cholecystitis Fatty liver Diabetes mellitus type 2 [id number] Brief History of Present Illness: 73-year-old female presented to the emergency room with right-sided abdominal tenderness. CT scan revealed pyelonephritis. Patient admitted for further evaluation and treatment. Hospital Course: Patient presented with right flank pain. Patient found to have right pyelonephritis. Patient was started on antibiotic therapy. Patient also found to have bacteremia. Patient has significantly improved. Urine and blood cultures positive for E coli. Multiple sensitivities noted. At discharge patient able tolerate her current diet. Patient without significant pain. At discharge she will continue with Ceftin 250 mg 1 pill twice daily for 14 days. Recommend follow up with her PCP at that time. Recommend to recheck blood culture and urine culture at that time to monitor resolution. Patient will be provided UTI prevention education. Patient with diabetes mellitus type 2. Patient may continue with her medications. Recommend to maintain blood sugars less 140 fasting and less than 200 after meals. Further adjustment can be done by her PCP. Vital Signs/Physical Exam: Temp Pulse Resp BP Pulse Ox 99.1 F 86 18 172/80 H 98 08/19/19 08:00 08/19/19 08:00 08/19/19 08:00 08/19/19 08:00 08/19/19 08:00 General: Alert, In no apparent distress, Oriented x3, Cooperative HEENT: Atraumatic Neck: Supple Respiratory: Clear to auscultation bilaterally, Normal air movement Cardiovascular: Normal pulses, Regular rate/rhythm Gastrointestinal: Normal bowel sounds, Soft and benign, Non-distended, No tenderness, No masses, No rebound, No guarding Musculoskeletal: No erythema, No tenderness, No warmth Integumentary: No tenderness/swelling, No erythema, No warmth, No cyanosis Neurological: Normal speech, Normal strength at 5/5 x4 extr, Normal tone, Normal affect Laboratory Data at Discharge: WBC 10.0 K/uL (4.3-10.9) D 08/19/19 05:12 Hgb 12.3 g/dL (12.0-15.0) 08/19/19 05:12 Hct 36.5 % (36.0-45.0) 08/19/19 05:12 Plt Count 104 K/uL (152-406) L 08/19/19 05:12 PT 15.4 SECONDS (9.5-12.5) H 08/17/19 05:35 INR 1.32 08/17/19 05:35 APTT 28.3 SECONDS (24.3-36.9) 08/17/19 05:35 Sodium 139 mmol/L (136-145) 08/19/19 05:12 Potassium 3.5 mmol/L (3.5-5.1) 08/19/19 05:12 BUN 9 mg/dL (7-18) 08/19/19 05:12 Creatinine 0.74 mg/dL (0.55-1.3) 08/19/19 05:12 Glucose 126 mg/dL (74-106) H 08/19/19 05:12 Phosphorus 1.9 mg/dL (2.5-4.9) L D 08/19/19 05:12 Magnesium 2.0 mg/dL (1.8-2.4) 08/19/19 05:12 Total Bilirubin 0.5 mg/dL (0.2-1.0) 08/19/19 05:12 AST 41 U/L (15-37) H 08/19/19 05:12 ALT 22 U/L (12-78) 08/19/19 05:12 Alkaline Phosphatase 100 U/L (45-117) 08/19/19 05:12 Troponin I 0.18 ng/mL (0.0-0.045) H 08/17/19 07:15 Amylase 36 U/L (25-115) 08/16/19 19:14 Lipase 117 U/L (73-393) 08/16/19 19:14 Home Medications: Aspirin [Tristin Chewable Aspirin] 81 mg PO DAILY 08/17/19 Glimepiride 1 mg PO BID 08/17/19 Cefuroxime [Ceftin] 250 mg PO BID #28 tab 08/19/19 New Medications: Cefuroxime [Ceftin] 250 mg PO BID #28 tab Patient Discharge Instructions: 1. Recommend follow up with PCP in 1 week to follow up this hospitalization. 2. Patient presented with right flank pain. Patient found to have right pyelonephritis. Patient was started on antibiotic therapy. Patient also found to have bacteremia. Patient has significantly improved. Urine and blood cultures positive for E coli. Multiple sensitivities noted. At discharge patient able tolerate her current diet. Patient without significant pain. At discharge she will continue with Ceftin 250 mg 1 pill twice daily for 14 days. Recommend follow up with her PCP at that time. Recommend to recheck blood culture and urine culture at that time to monitor resolution. Patient will be provided UTI prevention education. 3. Patient with diabetes mellitus type 2. Patient may continue with her medications. Recommend to maintain blood sugars less 140 fasting and less than 200 after meals. Further adjustment can be done by her PCP. Diet: ADA Activity: Ad esteban Time spent managing pt's care (in minutes): 55
[2019-08-19 14:36] VITALS: BP 151/67; TEMP 98.1
--- NOTE | 2019-08-19 14:41 | ECHO ---
HEIGHT: 5 ft 5 in WEIGHT: 139 lb 14.4 oz DATE OF STUDY: 07/21/[address]: kane franklin 2-DIMENSIONAL: YES M.MODE: YES DOPPLER: YES COLOR FLOW: YES TDS: NO PORTABLE: NO DEFINITY: NO BUBBLE STUDY: NO DIAGNOSIS: ELEVATED TROPONIN CARDIAC HISTORY: CATHERIZATION: NO SURGERY: NO PROSTHETIC VALVE: NO PACEMAKER: NO MEASUREMENTS (cm) DIASTOLIC (NORMALS) SYSTOLIC (NORMALS) IVSd 1.0 (0.6-1.2) LA Diam 4.1 (1.9-4.0) LVEF 78% LVIDd 5.2 (3.5-5.7) LVIDs 2.7 (2.0-3.5) %FS 47% LVPWd 1.2 (0.6-1.2) Ao Diam 2.8 (2.0-3.7) 2 DIMENSIONAL ASSESSMENT: RIGHT ATRIUM: NORMAL LEFT ATRIUM: DILATED RIGHT VENTRICLE: NORMAL LEFT VENTRICLE: NORMAL TRICUSPID VALVE: NORMAL MITRAL VALVE: NORMAL PULMONIC VALVE: NORMAL AORTIC VALVE: NORMAL PERICARDIAL EFFUSION: NONE AORTIC ROOT: NORMAL LEFT VENTRICULAR WALL MOTION: NORMAL. DOPPLER/COLOR FLOW: MILD AORTIC, MITRAL AND TRICUSPID REGURGITATION. NORMAL RIGHT VENTRICULAR SYSTOLIC PRESSURE. COMMENTS: NORMAL LEFT VENTRICULAR EJECTION FRACTION. DILATED LEFT ATRIUM. MILD AORTIC, MITRAL AND TRICUSPID REGURGITATION. TECHNOLOGIST: CATRINA BATES
== END 2019-08-19 13:40 | disposition home or self-care (01) | DRG 872 ==
LOC: ER 17:52 → ERHOLD 21:21 → INTOOBSV 21:21 → OBSVTOIN 21:21 → 2ND 22:42 → OBSVTOIN 08-17 06:55
PROVIDERS: ADMIT Hospitalist; ATTEND Hospitalist
DX: A41.9 Sepsis, unspecified organism (principal); N10 Acute pyelonephritis; B96.20 Unspecified Escherichia coli [E. coli] as the cause of diseases classified elsewhere; K80.20 Calculus of gallbladder without cholecystitis without obstruction; K76.0 Fatty (change of) liver, not elsewhere classified; E11.9 Type 2 diabetes mellitus without complications; R79.89 Other specified abnormal findings of blood chemistry; I10 Essential (primary) hypertension
CPT/HCPCS: 36415; 71045; 74177; 76700; 80048; 80053; 80076; 81003; 81015; 82150; 82550; 82553; 82947; 83605; 83690; 83735; 83880; 84100; 84132; 84145; 84484; 85025; 85610; 85730; 87040; 87077; 87086; 87088; 87186; 87205; 87804; 93005; 93306; 96374; 99285; G0378; J0696; J1650; J2270; J2405; J2543; J3475; J7030; J7040; Q9967

== ENCOUNTER 2020-09-22 09:56 | Emergency (ER) | payer OTHER ==
--- OUTSIDE RECORDS SUMMARY | 2020-09-22 09:59 | XMS REPORT | Continuity of Care Document ---
:1945 Author Organization [facility] t Address [address] [place] [address] Care Team Providers Name Role Phone Unavailable Unavailable Unavailable Problems This patient has no known problems. Allergies, Adverse Reactions, Alerts This patient has no known allergies or adverse reactions. Medications Ordered Filled Start Stop Current Ordering Indication Dosage Frequency Signature Comments Components Source Medication Medication Date Date Medication? Clinician (SIG) Name Name Ozempic (1 Ozempic (1 2020-0 2020- No Matty Inject [address] [facility] MG/DOSE) MG/DOSE) 8-18 12-15 [facility] Losartan Losartan 2019-0 Yes Matty [address] [facility] Potassium Potassium 6-02 [facility] Aspir-Low Aspir-Low Yes Matty [address] [facility] Docusate Docusate Yes Matty [address] Sodium Sodium [facility] as needed [facility] Combigan Combigan Yes Matty [address] [facility] into [facility] Azopt Azopt Yes Matty [address] [facility] into [facility]ics Amitiza Amitiza Yes Matty [address] [facility] [address] [facility] with food [facility] - and water [facility] Lumigan Lumigan Yes [facility] affected [facility] in the l evening Outpati ent Clinics Glimepiride Glimepiride Yes Matty [address] [facility] with [facility] - breakfast [facility] or the l first main Outpati meal of ent the day Clinics Carvedilol Carvedilol Yes Matty TOME OBDULIA [facility] TABLETA [facility] - DOS VECES [facility] AL D A CON l ALIMENTO Outpati ent Clinics Pravastatin Pravastatin Yes Matty TOME OBDULIA [facility] Sodium Sodium [facility] TABLETA [facility] - TODOS LOS [facility] VAZQUEZ l [facility] ent [facility]ics Metformin Metformin Yes Matty [address] [facility] HCl HCl [facility] with meals [facility] Losartan Losartan Yes Matty TOME OBDULIA [facility] Potassium Potassium Hicks TABLETA L ukes - TODOS LOS [facility] VAZQUEZ l Outpati ent Clinics Glimepiride Glimepiride Yes Matty [address] [facility] WITH [facility] - BREAKFAST [facility] OR THE l FIRST MAIN Outpati MEAL OF ent THE DAY Clinics TWICE A DAY ORALLY 90 DAYS Amitiza Amitiza Yes Matty TOME [address] [facility] CAPSULA [facility] - POR VIA [facility] ORAL DOS l VECES AL Outpati KARLA WITH ent FOOD AND Clinics WATER Ozempic Ozempic 2020- No Matty Inject 0.[address] [facility] 01-20 Hicks mg SC once [facility] - 00:00 weekly [facility] :[facility] l [facility] Clin[facility] Procedures This patient has no known procedures. Encounters Start End Encounter Admission Attending Care Care Encounter Source Date/Time Date/Time Type Type Clinicians Facility Department ID 2020-08-20 2020-08-20 Out[facility] [id number] [facility] 2020-07-09 2020-07-09 [facility] [id number] [facility] 2020-05-25 2020-05-25 [facility] [id number] [facility] 2020-05-22 2020-05-22 [facility] [id number] [facility] 2020-05-12 2020-05-[address] [id number] 2020-04-22 2020-04-22 [facility] [id number] [facility] 2020-03-17 2020-03-[facility] [id number] 2020-02-19 2020-02-19 [facility] [id number] [facility] 14[facility]:00 14:00:00 [place] [facility] [facility] l Medicine Outpati ent Clinics 2020-01-21 2020-01-21 [facility] [id number] [facility] 10:45:00 10:45:00 [place] [facility] Medicine l Medicine Outpati ent Clinics 2020-01-06 2020-01-06 [facility] [id number] [facility] 16:49:00 16:49:00 [place] [facility] [facility] Medicine l Medicine Outpati ent Clinics 2019-12-23 2019-12-23 [facility] [id number] [address] 09:00:00 09:00:00 [place] [facility] [facility] l Medicine Outpati ent Clinics 2019-12-13 2019-12-13 [facility] [id number] [address] 11:53:00 11:53:00 [place] [facility] [facility] Medicine l Medicine Outpati ent Clinics 2019-11-21 2019-11-21 [facility] [id number] [facility] 11:25:00 11:25:00 [place] [facility] [facility] Medicine l Medicine Outpati ent Clinics 2019-11-18 2019-11-18 [facility] [id number] [address] 08:45:00 08:45:00 [place] [facility] [facility] Medicine l Medicine Outpati ent Clinics 2019-11-14 2019-11-14 [facility] [id number] [address] 16:00:00 16:00:00 [place] [employer] [facility] Medicine Outpati ent Clinics 2019-11-05 2019-11-05 [facility] [id number] [facility] 14:00:00 14:00:00 t [place] [facility] [employer] [facility] Medicine Outpati ent Clinics 2019-10-23 2019-10-23 [facility] [id number] [facility] 14:00:00 14:00:00 [facility] [employer] [facility] Medicine Outpati ent Clinics 2019-10-23 2019-10-23 [facility] [id number] [facility] 13:00:00 13:00:00 t [email or web address] [facility] Medicine Outpati ent Clinics 2019-09-11 2019-09-11 [facility] [id number] [facility] 16:41:00 16:41:00 t [email or web address] [facility] Medicine Outpati ent Clinics 2019-08-29 2019-08-29 [facility] [id number] 09:26:00 09:26:00 t [email or web address] [facility] Medicine Outpati ent Clinics 2019-08-21 2019-08-21 [facility] [id number] 10:52:00 10:52:00 t [email or web address] [facility] Medicine Outpati ent Clinics 2019-08-14 2019-08-14 [facility] [id number] [facility] 13:30:00 13:30:00 t [email or web address] [facility] Medicine Outpati ent Clinics Results This patient has no known results.
--- NOTE | 2020-09-22 12:33 | RAD REPORT ---
EXAM DESCRIPTION: RAD - Hand Right 3 View - 09/22/2020 12:19 pm CLINICAL HISTORY: PAIN COMPARISON: No comparisonsNone. FINDINGS: No fracture is identified. There is no dislocation or periosteal reaction noted. IP joint space narrowing with marginal spurring seen. No erosive changes of the IP joints. Findings are more pronounced in the IP joint of the thumb. Trapezium first metacarpal degenerative changes minimal. No suspicious soft tissue finding. Distal radius and ulna are intact. IMPRESSION: Negative right hand examination for fracture or acute finding. Moderately prominent IP joint degenerative change as detailed.
--- NOTE | 2020-09-22 12:35 | RAD REPORT ---
EXAM DESCRIPTION: RAD - Wrist Right 3 View - 09/22/2020 12:19 pm CLINICAL HISTORY: PAIN COMPARISON: Wrist Right 2 View dated 05/22/2020 FINDINGS: No fracture is identified. There is no dislocation or periosteal reaction noted. Minimal c arpal bone degenerative changes are present. Distal radius and ulna are intact. Appearance of the sca phoid is not clearly different from the May 2020 study. No foreign body or other soft tissue abn ormality. IMPRESSION: Negative right wrist examination for acute finding.
--- NOTE | 2020-09-22 12:35 | RAD REPORT ---
EXAM DESCRIPTION: RAD - Elbow Right 3 View - 09/22/2020 12:19 pm CLINICAL HISTORY: PAIN, fall COMPARISON: No comparisonsNone. FINDINGS: No fracture is identified and no elevated posterior fat pad. There is no dislocation or pe riosteal reaction noted. No foreign body or other soft tissue abnormality. No other significant findi ng. IMPRESSION: Negative right elbow examination.
--- NOTE | 2020-09-22 12:47 | RAD REPORT ---
EXAM DESCRIPTION: Shoulder Right 2 View - 09/22/2020 12:19 pm CLINICAL HISTORY: PAIN, fall, right-sided arm pain COMPARISON: No comparisons TECHNIQUE: Internal and external rotation views of the right shoulder were obtained. FINDINGS: Fracture of the greater tuberosity is present. A sagittally oriented fracture plane is pre sent. There is no significant displacement of the greater tuberosity fracture fragment from the main body of the humerus. No dislocation of the humeral head. Degenerative changes at the AC joint are mild. No abnormal soft tissue calcifications. No pathologic changes. IMPRESSION: Right humerus greater tuberosity fracture with no significant distraction or displacemen t.
--- NOTE | 2020-09-22 12:48 | RAD REPORT ---
EXAM DESCRIPTION: RAD - Scapula Right - 09/22/2020 12:19 pm CLINICAL HISTORY: PAIN COMPARISON: No comparisons FINDINGS: AP scapula and scapula Y-views were obtained. Greater tuberosity fracture is again noted w ithout displacement. No fracture of the scapula identified. No gross rib abnormality of the upper [address]. IMPRESSION: No scapula fracture confirmed on this study.
--- NOTE | 2020-09-22 13:36 | ER ---
Nurse's Notes [facility] Name: Luanne Fuller Age: 74 yrs Sex: Female : 1945 Arrival Date: 09/22/2020 Time: 09:57 Bed 30 Private MD: Diagnosis: Right humerus greater tuberosity fracture - nondisplaced Presentation: 09/22 11:23 Chief complaint: Patient states: Fell last night. C/o pain to R upper back, R anterior ss chest wall, R shoulder, R elbow, R wrist and R hand. Denies difficulty breathing. Coronavirus screen: Client denies travel out of the [place] in the last 14 days. Ebola Screen: Patient denies exposure to infectious person. Patient denies travel to an Ebola-affected area in the 21 days before illness onset. Initial Sepsis Screen: Does the patient meet any 2 criteria? No. Patient's initial sepsis screen is negative. Does the patient have a suspected source of infection? No. Patient's initial sepsis screen is negative. Risk Assessment: Do you want to hurt yourself or someone else? Patient reports no desire to harm self or others. Onset of symptoms was September 21, 2020. 11:23 Method Of Arrival: Ambulatory ss 11:23 Acuity: DAYANA 4 ss Historical: - Allergies: 11:24 PENICILLINS; ss - PMHx: 11:24 Diabetes - IDDM; Hypertension; ss - Immunization history:: Adult Immunizations unknown. - Social history:: Smoking status: Patient denies any tobacco usage or history of. Screenin:33 Abuse screen: Denies threats or abuse. Nutritional screening: No deficits noted. tw2 Tuberculosis screening: No symptoms or risk factors identified. Fall Risk Secondary diagnosis (15 points) impaired mobility. Assessment: 13:42 General: Appears uncomfortable, slender, well groomed, Behavior is calm, cooperative, tw2 appropriate for age. Pain: Complains of pain in right arm. Neuro: Level of Consciousness is awake, alert, obeys commands, Oriented to person, place, time, situation. Cardiovascular: Capillary refill < 3 seconds Patient's skin is warm and dry. Respiratory: Airway is patent Respiratory effort is even, unlabored, Respiratory pattern is regular, symmetrical. Musculoskeletal: Range of motion: limited in right shoulder Reports pain in right arm. 13:47 Reassessment: No changes from previously documented assessment. Patient and/or family tw2 updated on plan of care and expected duration. Pain level reassessed. Vital Signs: 11:23 BP 181 / 74; Pulse 84; Resp 16; Temp 97.9(TE); Pulse Ox 100% on R/A; Weight 58.97 kg; ss Pain 8/10; 13:41 BP 178 / 65; Pulse 85; Resp 17; Pulse Ox 100% on R/A; tw2 ED Course: 09:57 Patient arrived in ED. ds1 11:24 Triage completed. ss 11:24 Arm band placed on right wrist. ss 12:18 XRAY Scapula Right In Process Unspecified. EDMS 12:18 Wrist Right 3 View XRAY In Process Unspecified. EDMS 12:18 Shoulder Right (2 View) XRAY In Process Unspecified. EDMS 12:19 Elbow Right 3 View XRAY In Process Unspecified. EDMS 12:19 Hand Right 3 View XRAY In Process Unspecified. EDMS 13:06 Cristy Ball FNP-C is [facility]. kb 13:06 Warren Kearns MD is Attending Physician. kb 13:06 Bed in low position. Call light in reach. Pulse ox on. NIBP on. tw2 13:32 Nikole Arevalo, RN is Primary Nurse. tw2 13:42 No provider procedures requiring assistance completed. Patient did not have IV access tw2 during this emergency room visit. Administered Medications: 13:40 Drug: traMADol 50 mg {Note: RASS 0.} Route: PO; tw2 13:47 Follow up: Response: No adverse reaction tw2 Outcome: 13:35 Discharge ordered by . kb 13:47 Discharged to home ambulatory, with significant other. tw2 13:47 Condition: stable 13:47 Discharge instructions given to patient, significant other, Instructed on discharge instructions, follow up and referral plans. medication usage, safety practices, Demonstrated understanding of instructions, follow-up care, medications, Prescriptions given X 1. 13:47 Patient left the ED. tw2 Signatures: Dispatcher [employer] EDMS Cristy Ball FNP-C FNP-Ckb [place], Demi ds1 Amada Solares RN RN Nikole Arevalo RN RN tw2
--- NOTE | 2020-09-22 13:36 | EDPHYS ---
Physician Documentation [facility] Name: Luanne Fuller Age: 74 yrs Sex: Female : 1945 Arrival Date: 09/22/2020 Time: 09:57 Bed 30 Private MD: ED Physician Warren Kearns HPI: 09/22 13:33 This 74 yrs old Female presents to ER via Ambulatory with complaints of Fall kb Injury, Arm Pain. 13:33 Details of fall: The patient fell from an upright position, while walking. Onset: The kb symptoms/episode began/occurred this morning. Associated injuries: The patient sustained anterior aspect of right shoulder and right arm, painful injury. Severity of symptoms: At their worst the symptoms were moderate, in the emergency department the symptoms are unchanged. The patient has not experienced similar symptoms in the past. The patient has not recently seen a physician. Pt reports she tripped in the bathroom at 0500 this morning. c/o pain to entire right arm, worse in shoulder. Decreased ROM due to pain. Historical: - Allergies: 11:24 PENICILLINS; ss - PMHx: 11:24 Diabetes - IDDM; Hypertension; ss - Immunization history:: Adult Immunizations unknown. - Social history:: Smoking status: Patient denies any tobacco usage or history of. ROS: 13:31 Constitutional: Negative for fever, chills, and weight loss, Cardiovascular: Negative kb for chest pain, palpitations, and edema, Respiratory: Negative for shortness of breath, cough, wheezing, and pleuritic chest pain, Skin: Negative for injury, rash, and discoloration, Neuro: Negative for headache, weakness, numbness, tingling, and seizure. 13:31 MS/extremity: Positive for decreased range of motion, pain, tenderness, of the right arm. Exam: 13:31 Constitutional: This is a well developed, well nourished patient who is awake, alert, kb and in no acute distress. Head/Face: Normocephalic, atraumatic. Respiratory: Respirations even and unlabored. No increased work of breathing, no retractions or nasal flaring. Skin: Warm, dry with normal turgor. Normal color. Neuro: Awake and alert, GCS 15, oriented to person, place, time, and situation. Moves all extremities. Normal gait. 13:31 Musculoskeletal/extremity: Extremities: grossly normal except: noted in the right arm: decreased ROM, pain, tenderness, ROM: limited active range of motion due to pain, in the anterior aspect of right shoulder, Circulation is intact in all extremities. Sensation intact. Vital Signs: 11:23 BP 181 / 74; Pulse 84; Resp 16; Temp 97.9(TE); Pulse Ox 100% on R/A; Weight 58.97 kg; ss Pain 8/10; 13:41 BP 178 / 65; Pulse 85; Resp 17; Pulse Ox 100% on R/A; tw2 MDM: 13:07 Patient medically screened. kb 13:32 Data reviewed: vital signs, nurses notes. Data interpreted: Pulse oximetry: on room air kb is 100 %. Interpretation: normal. Counseling: I had a detailed discussion with the patient and/or guardian regarding: the historical points, exam findings, and any diagnostic results supporting the discharge/admit diagnosis, radiology results, the need for outpatient follow up, a orthopedic surgeon, to return to the emergency department if symptoms worsen or persist or if there are any questions or concerns that arise at home. 09/22 11:22 Order name: XRAY Scapula Right; Complete Time: 13:06 09/22 11:22 Order name: Wrist Right 3 View XRAY; Complete Time: 13:06 09/22 11:22 Order name: Shoulder Right (2 View) XRAY; Complete Time: 13:06 09/22 11:22 Order name: Elbow Right 3 View XRAY; Complete Time: 13:06 09/22 11:22 Order name: Hand Right 3 View XRAY; Complete Time: 13:06 09/22 13:31 Order name: Sling; Complete Time: 13:40 kb Administered Medications: 13:40 Drug: traMADol 50 mg {Note: RASS 0.} Route: PO; tw2 13:47 Follow up: Response: No adverse reaction tw2 Disposition: 17:20 Co-signature as Attending Physician, Warren Kearns MD. rn Disposition: 09/22/20 13:35 Discharged to Home. Impression: Right humerus greater tuberosity fracture - nondisplaced. - Condition is Stable. - Discharge Instructions: Humerus Fracture Treated With Immobilization, [id number]. - Prescriptions for Tramadol 50 mg Oral Tablet - take 1 tablet by ORAL route every 8 hours as needed; 12 tablet. - Medication Reconciliation Form, Thank You Letter, Antibiotic Education, Prescription Opioid Use form. - Follow up: Emergency Department; When: As needed; Reason: Worsening of condition. Follow up: Private Physician; When: 2 - 3 days; Reason: Recheck today's complaints, Continuance of care, Re-evaluation by your physician. Signatures: Dispatcher [employer] EDMD Cristy Ball, BHARTI-C PHYSICAL MEDICINE PHYSICIAN-Miguelb Warren Kearns MD MD rn Smirch, Shelby, RN RN ss Nikole Arevalo RN RN tw2 Corrections: (The following items were deleted from the chart) 13:47 13:35 09/22/2020 13:35 Discharged to Home. Impression: Right humerus greater tuberosity tw2 fracture - nondisplaced. Condition is Stable. Forms are Medication Reconciliation Form, Thank You Letter, Antibiotic Education, Prescription Opioid Use. Follow up: Emergency Department; When: As needed; Reason: Worsening of condition. Follow up: Private Physician; When: 2 - 3 days; Reason: Recheck today's complaints, Continuance of care, Re-evaluation by your physician. kb
[2020-09-22 13:52] VITALS: TEMP 97.9; O2SAT 100
[2020-09-22 13:53] VITALS: BP 178/65
[2020-09-22] MEDS ORDERED: TRAMADOL HCL 50 MG TAB ONE (13:53)
== END 2020-09-22 13:47 | disposition home or self-care (01) ==
LOC: ER 09:56
DX: S42.254A Nondisplaced fracture of greater tuberosity of right humerus, initial encounter for closed fracture (principal); W01.0XXA Fall on same level from slipping, tripping and stumbling without subsequent striking against object, initial encounter; Y93.01 Activity, walking, marching and hiking; Y92.002 Bathroom of unspecified non-institutional (private) residence as the place of occurrence of the external cause; Z88.0 Allergy status to penicillin; I10 Essential (primary) hypertension
CPT/HCPCS: 73010; 99284

== ENCOUNTER 2021-05-01 11:58 | Emergency (ER) | payer OTHER ==
--- OUTSIDE RECORDS SUMMARY | 2021-05-01 12:03 | XMS REPORT | Continuity of Care Document ---
:1945 Author Organization [facility] t Address [address] [place] [address] Care Team Providers Name Role Phone Unavailable [...] [facility] Procedures This patient has no known procedures. Encounters Start End Encounter Admission Attending Care Care Encounter Source Date/Time Date/Time Type Type Clinicians Facility Department ID 2021-04-19 2021-04-19 ambulatory [facility] [id number] [facility] 2021-01-14 2021-01-14 Outpatient [facility] [id number] [facility] 2020-12-30 2020-12-30 Outpatient [facility] [id number] [facility] 2020-12-02 2020-12-02 Outpatient [facility] [id number] [facility] 2020-11-30 2020-11-30 [facility] [id number] [facility] 2020-11-30 2020-11-30 [facility] [id number] [facility] 2020-11-23 2020-11-23 [facility] [id number] [facility] 2020-11-09 2020-11-09 [facility] [id number] [facility] 2020-10-27 2020-10-27 [facility] [id number] [facility] 2020-10-15 2020-10-15 [facility] [id number] [facility] 2020-10-15 2020-10-15 [facility] [id number] [facility] 2020-10-12 2020-10-12 [facility] [id number] [facility] 2020-09-29 2020-09-29 [facility] [id number] [facility] 2020-09-28 2020-09-28 [facility] [id number] [facility] 2020-09-23 2020-09-23 [facility] [id number] [facility] 2020-08-20 2020-08-20 [facility] [id number] [facility] 2020-07-09 2020-07-09 Out[facility] [id number] [facility] 2020-05-25 2020-05-25 [facility] [id number] [facility] 2020-05-22 2020-05-22 Outpatient [facility] [id number] [facility] 2020-05-12 2020-05-12 Outpatient [facility] [id number] [facility] 2020-04-22 2020-04-22 Outpatient [facility] [id number] [facility] 2020-03-17 2020-03-17 Out[facility] [id number] [facility] 2020-02-19 2020-02-19 [facility] [id number] [facility] 14[facility]00:00 14:00:00 [facility] [employer] s - Drive [facility] l Medicine Outpati ent Clinics 2020-01-21 2020-01-21 [facility] [id number] 10:45:00 10:45:00 t [place] [employer] s - Drive [facility] Medicine Outpat[facility] Clinics 2020-01-06 2020-01-06 [facility] [id number] [facility] 16:49:00 16:49:00 t [place] [employer] s - Drive [facility] Medicine l Medicine Outpati ent Clinics 2019-12-23 2019-12-23 [facility] [id number] 09:00:00 09:00:00 t [place] [employer] [facility] - Drive [facility] Family Medicine l Medicine Outpati ent Clinics 2019-12-13 2019-12-13 [facility] [id number] 11:53:00 11:53:00 t [place] [employer] - [employer] [facility] Medicine l Medicine Outpati ent Clinics 2019-11-21 2019-11-21 [facility] [id number] [facility] 11:25:00 11:25:00 t [place] [employer] [facility] Medicine l Medicine Outpati ent Clinics 2019-11-18 2019-11-18 [facility] [id number] 08:45:00 08:45:00 t [place] [employer] [facility] Medicine l Medicine Outpati ent Clinics 2019-11-14 2019-11-14 [facility] [id number] 16:00:00 16:00:00 t [employer] [facility] Medicine l Medicine Outpati ent Clinics 2019-11-05 2019-11-05 [facility] [id number] 14:00:00 14:00:00 t [place] [employer] [facility] Medicine l Medicine Outpati ent Clinics 2019-10-23 2019-10-23 [facility] [id number] [facility] 14:00:00 14:00:00 t [employer] [facility] Medicine l Medicine Outpati ent Clinics 2019-10-23 2019-10-23 [facility] [id number] [facility] 13:00:00 13:00:00 t [place] [employer] [facility] Medicine l Medicine Outpati ent Clinics 2019-09-11 2019-09-11 [facility] [id number] [facility] 16:41:00 16:41:00 t [place] [employer] [facility] Medicine l Medicine Outpati ent Clinics 2019-08-29 2019-08-29 [facility] [id number] [facility] 09:26:00 09:26:00 t [employer] [facility] Medicine l Medicine Outpati ent Clinics 2019-08-21 2019-08-21 [facility] [id number] 10:52:00 10:52:00 t [place] [employer] s - Drive [facility] ent [facility] 2019-08-14 2019-08-14 Outpatient Adrien Higgins [id number] [facility] 13[facility] 13:30:00 t [employer] [facility] ent Clinics Results This patient has no known results.
[2021-05-01 13:58] LABS: Absolute Lymphocytes (CBC) 1.3 K/uL (0.7-4.9); Basophils % 0.3 % (0-1.3); Hematocrit 38.6 % (36.0-45.0); Lymphocytes % 13.8 % (15.3-44.8); MPV 10.7 fL (7.6-11.3); RBC Red Blood Cell Count 4.38 M/uL (3.86-4.86)
[2021-05-01] MEDS ORDERED: NA CHLORIDE 0.9% 500 ML ONE (14:13)
[2021-05-01] MEDS ORDERED: ONDANSETRON 4 MG/2 ML VIAL ONE (14:13)
[2021-05-01] MEDS ORDERED: MORPHINE 2 MG/ML SYR ONE (14:13)
[2021-05-01 14:25] LABS: ALT/SGPT 26 U/L (12-78); AST/SGOT 22 U/L (15-37); Albumin 3.2 g/dL (3.4-5.0); Alkaline Phosphatase 290 U/L (45-117); BUN Blood Urea Nitrogen 13 mg/dL (7-18); Bicarbonate 27 mmol/L (21-32); Bilirubin Total 0.2 mg/dL (0.2-1.0); Glucose Level 254 mg/dL (74-106); Potassium 3.5 mmol/L (3.5-5.1); Protein, Total 7.3 g/dL (6.4-8.2); Sodium Level 140 mmol/L (136-145)
--- NOTE | 2021-05-01 14:32 | RAD REPORT ---
EXAM DESCRIPTION: CT - Spine Lumbar Wo Con - 05/01/2021 1:55 pm CLINICAL HISTORY: Radiculopathy. PAIN COMPARISON: <Comparisons> TECHNIQUE: Axial noncontrast CT imaging of the lumbar spine was performed with coronal and sagittal re-formatted images. All CT scans are performed using dose optimization technique as appropriate and may include automated exposure control or mA/KV adjustment according to patient size. FINDINGS: No acute lumbar spine fracture seen. No aggressive marrow pattern or malalignment. L5-S1 p ars defects. Paraspinal tissues are normal in thickness. No paraspinal abscess or hematoma seen. Cholelithiasis. Intervertebral disc disease assessment is inherently limited by CT. Within these limitations, no high -grade canal stenosis suspected. IMPRESSION: No fracture of the lumbar spine is identified. Consider MRI follow-up for assessment of disc disease if clinically desired.
--- NOTE | 2021-05-01 14:35 | RAD REPORT ---
EXAM DESCRIPTION: CT - Pelvis Wo Cont - 05/01/2021 1:55 pm CLINICAL HISTORY: BLUNT TRAUMA COMPARISON: No comparisonsNo comparisons FINDINGS: No pelvic fractures identified. Fat containing periumbilical and umbilical hernia. The hip s are located. IMPRESSION: No pelvic or hip fracture identified.
--- NOTE | 2021-05-01 14:41 | RAD REPORT ---
EXAM DESCRIPTION: RAD - Pelvis - 05/01/2021 2:03 pm CLINICAL HISTORY: PAIN COMPARISON: No comparisons FINDINGS: No acute fracture. No malalignment. Mild acetabular degenerative changes. IMPRESSION: No acute osseous abnormality involving the pelvis.
--- NOTE | 2021-05-01 14:41 | RAD REPORT ---
EXAM DESCRIPTION: RAD - Femur Left - 05/01/2021 2:03 pm CLINICAL HISTORY: PAIN COMPARISON: No comparisons FINDINGS: No acute fracture. No malalignment. Mild left acetabular degenerative changes. Peripheral vascular calcifications. IMPRESSION: No acute osseous abnormality involving the left femur.
--- NOTE | 2021-05-01 15:14 | EDPHYS ---
Physician Documentation [facility] Name: Luanne Fuller Age: 75 yrs Sex: Female : 1945 Arrival Date: 05/01/2021 Time: 12:03 Bed 12 Private MD: AIRAM Physician Ranjeet Kimball HPI: 05/01 13:32 This 75 yrs old Female presents to ER via Wheelchair with complaints of Hip ori Pain, Back Pain. 13:32 The patient or guardian reports decreased range of motion, pain. sustained from a fall, ori while walking, There is no obvious deformity, The patient is able to ambulate with assistance. The patient is able to bear their full body weight. The complaints affect the lumbar area, left low back and pelvis. Onset: The symptoms/episode began/occurred 20 day(s) ago. Modifying factors: The symptoms are alleviated by remaining still, the symptoms are aggravated by any movement. Associated signs and symptoms: Loss of consciousness: the patient experienced no loss of consciousness. Severity of symptoms: At their worst the symptoms were moderate, in the emergency department the symptoms are unchanged. The patient has experienced similar episodes in the past, several times. Historical: - Allergies: 13:05 PENICILLINS; iw - Home Meds: 13:05 glimepiride 1 mg Oral tab 1 tab once daily [Active]; Metformin Oral [Active]; iw - PMHx: 13:05 Diabetes - IDDM; Hypertension; iw - Immunization history:: Adult Immunizations. - Social history:: Smoking status: Patient denies any tobacco usage or history of. - Family history:: not pertinent. ROS: 13:32 Constitutional: Negative for fever, chills, and weight loss, Eyes: Negative for injury, ori pain, redness, and discharge, ENT: Negative for injury, pain, and discharge, Neck: Negative for injury, pain, and swelling, Cardiovascular: Negative for chest pain, palpitations, and edema, Respiratory: Negative for shortness of breath, cough, wheezing, and pleuritic chest pain, Abdomen/GI: Negative for abdominal pain, nausea, vomiting, diarrhea, and constipation, : Negative for injury, bleeding, discharge, and swelling, Skin: Negative for injury, rash, and discoloration, Neuro: Negative for headache, weakness, numbness, tingling, and seizure. 13:32 Back: Positive for decreased range of motion, pain at rest. 13:32 MS/extremity: Positive for decreased range of motion, pain, of the left femoral area, left iliac crest and left hip. Exam: 13:32 Constitutional: This is a well developed, well nourished patient who is awake, alert, ori and in no acute distress. Head/Face: Normocephalic, atraumatic. Eyes: Pupils equal round and reactive to light, extra-ocular motions intact. Lids and lashes normal. Conjunctiva and sclera are non-icteric and not injected. Cornea within normal limits. Periorbital areas with no swelling, redness, or edema. ENT: Nares patent. No nasal discharge, no septal abnormalities noted. Tympanic membranes are normal and external auditory canals are clear. Oropharynx with no redness, swelling, or masses, exudates, or evidence of obstruction, uvula midline. Mucous membranes moist. Neck: Trachea midline, no thyromegaly or masses palpated, and no cervical lymphadenopathy. Supple, full range of motion without nuchal rigidity, or vertebral point tenderness. No Meningismus. Chest/axilla: Normal chest wall appearance and motion. Nontender with no deformity. No lesions are appreciated. Cardiovascular: Regular rate and rhythm with a normal S1 and S2. No gallops, murmurs, or rubs. Normal PMI, no JVD. No pulse deficits. Respiratory: Lungs have equal breath sounds bilaterally, clear to auscultation and percussion. No rales, rhonchi or wheezes noted. No increased work of breathing, no retractions or nasal flaring. Abdomen/GI: Soft, non-tender, with normal bowel sounds. No distension or tympany. No guarding or rebound. No evidence of tenderness throughout. Back: No spinal tenderness. No costovertebral tenderness. Full range of motion. Female : Normal external genitalia. Skin: Warm, dry with normal turgor. Normal color with no rashes, no lesions, and no evidence of cellulitis. Neuro: Awake and alert, GCS 15, oriented to person, place, time, and situation. Cranial nerves II-XII grossly intact. Motor strength 5/5 in all extremities. Sensory grossly intact. Cerebellar exam normal. Normal gait. Psych: Awake, alert, with orientation to person, place and time. Behavior, mood, and affect are within normal limits. 13:32 Musculoskeletal/extremity: ROM: limited active range of motion, limited passive range of motion, Circulation is intact in all extremities. Sensation intact. Compartment Syndrome exam of affected extremity: is normal. DVT Exam: no swelling, negative Homans' sign noted on exam, no appreciated bluish discoloration, no erythema, no increased warmth, pain, tenderness. Vital Signs: 13:02 BP 160 / 82; Pulse 76; Resp 16; Temp 97.8; Pulse Ox 98% on R/A; Weight 63.5 kg; iw MDM: 13:13 Patient medically screened. [facility] 13:37 Differential diagnosis: hip fracture, intertrochanteric fracture, femoral neck ori fracture, femoral shaft fracture, arthritis. Data reviewed: vital signs, nurses notes, lab test result(s), EKG, radiologic studies, plain films. Data interpreted: blood typer: rate is 76 beats/min, rhythm is regular, Pulse oximetry: on room air is 98 %. Test interpretation: by ED physician or midlevel provider: plain radiologic studies. Counseling: I had a detailed discussion with the patient and/or guardian regarding: the historical points, exam findings, and any diagnostic results supporting the discharge/admit diagnosis, lab results, radiology results. 05/01 13:26 Order name: CBC with Diff; Complete Time: 15: [facility] 05/01 13:26 Order name: Comprehensive Metabolic Panel; Complete Time: 15: [facility] 05/01 13:26 Order name: CT Lumbar Spine Wo Con; Complete Time: 15: [facility] 05/01 13:26 Order name: Pelvis XRAY; Complete Time: 15: [facility] 05/01 13:26 Order name: Pelvis Wo Cont CT: include bilateral hips; Complete Time: 15: [facility] 05/01 13:26 Order name: Femur Left XRAY; Complete Time: 15: [facility] 05/01 13:26 Order name: Urine Dipstick-Ancillary (obtain specimen) [facility] Administered Medications: 14: Drug: NS 0.9% 500 ml Route: IV; Rate: bolus; Site: right antecubital; iw 15:00 Follow up: IV Status: Completed infusion iw Drug: morphine 2 mg Route: IVP; Site: right antecubital; iw 15:00 Follow up: Response: No adverse reaction; Pain is decreased iw 14:27 Drug: Zofran (Ondansetron) 4 mg Route: IVP; Site: right antecubital; iw 15:00 Follow up: Response: No adverse reaction iw Disposition Summary: 05/01/21 15:13 Discharge Ordered Location: Home ori Problem: new ori Symptoms: have improved ori Condition: Stable ori Diagnosis - Fall on same level, unspecified ori - Low back pain ori - Pain in left hip ori - Type 1 diabetes mellitus with hyperglycemia ori Followup: ori - With: Private Physician - When: 2 - 3 days - Reason: Recheck today's complaints, Continuance of care, Re-evaluation by your physician Followup: ori - With: Sudheer Johnson MD - When: 2 - 3 days - Reason: Recheck today's complaints, Continuance of care, Re-evaluation by your physician Discharge Instructions: - Discharge Summary Sheet ori - Arthritis ori - Acute Back Pain, Adult ori - Type 1 Diabetes Mellitus, Diagnosis, Adult ori - Musculoskeletal Pain ori - Back Injury Prevention, [id number] Forms: - Medication Reconciliation Form ori - Thank You Letter ori - Antibiotic Education ori - Prescription Opioid Use [facility] Prescriptions: - diclofenac potassium 25 mg Oral capsule - take 1 capsule by ORAL route 4 times per day; 28 capsule; Refills: 0, Product [facility] Selection Permitted - Tylenol-Codeine #3 300 mg-30 mg Oral - take 1 tablet by ORAL route every 4-6 hours; 20 tablet; Refills: 0, Product [facility] Selection Permitted Signatures: Dispatcher [employer] Ranjeet Hudson MD MD cha Williams, Irene, RN RN iw
--- NOTE | 2021-05-01 15:14 | ER ---
Nurse's Notes [facility] Name: Luanne Fuller Age: 75 yrs Sex: Female : 1945 Arrival Date: 05/01/2021 Time: 12:03 Bed 12 Private MD: Diagnosis: Fall on same level, unspecified;Low back pain;Pain in left hip;Type 1 diabetes mellitus with hyperglycemia Presentation: 05/01 13:02 Chief complaint: Patient states: can't walk today, has been getting worse over past iw three days, had a fall 20 days ago , has left hip and leg pain since then. Coronavirus screen: At this time, the client does not indicate any symptoms associated with coronavirus-19. Ebola Screen: Patient negative for fever greater than or equal to 101.5 degrees Fahrenheit, and additional compatible Ebola Virus Disease symptoms Patient denies exposure to infectious person. Patient denies travel to an Ebola-affected area in the 21 days before illness onset. No symptoms or risks identified at this time. Initial Sepsis Screen: Does the patient meet any 2 criteria? No. Patient's initial sepsis screen is negative. Does the patient have a suspected source of infection? No. Patient's initial sepsis screen is negative. Risk Assessment: Do you want to hurt yourself or someone else? Patient reports no desire to harm self or others. Onset of symptoms was April 28, 2021. 13:02 Method Of Arrival: Wheelchair iw 13:02 Acuity: DAYANA 3 iw Historical: - Allergies: 13:05 PENICILLINS; iw - Home Meds: 13:05 glimepiride 1 mg Oral tab 1 tab once daily [Active]; Metformin Oral [Active]; iw - PMHx: 13:05 Diabetes - IDDM; Hypertension; iw - Immunization history:: Adult Immunizations. - Social history:: Smoking status: Patient denies any tobacco usage or history of. - Family history:: not pertinent. Screenin:06 Abuse screen: Denies threats or abuse. Denies injuries from another. Nutritional iw screening: No deficits noted. Tuberculosis screening: No symptoms or risk factors identified. Fall Risk Fall in past 12 months (25 points). Assessment: 13:06 General: Appears in no apparent distress. Behavior is calm, cooperative. Pain: iw Complains of pain in buttocks and left hip Pain radiates to left leg. Neuro: Level of Consciousness is awake, alert, obeys commands, Oriented to person, place, time, situation, Moves all extremities. Vital Signs: 13:02 BP 160 / 82; Pulse 76; Resp 16; Temp 97.8; Pulse Ox 98% on R/A; Weight 63.5 kg; iw ED Course: 12:03 Patient arrived in ED. as 13:05 Triage completed. iw 13:05 Arm band placed on. iw 13:06 Kelly Luo, CHAPIS is Primary Nurse. iw 13:13 Ranjeet Kimball MD is Attending Physician. [facility] 13:40 Initial lab(s) drawn, by nm, sent to lab. Inserted saline lock: 20 gauge in right kj1 antecubital area, using aseptic technique. Blood collected. 13:55 CT Lumbar Spine Wo Con In Process Unspecified. EDMS 13:[address]: include bilateral hips In Process Unspecified. EDMS 14:03 Pelvis XRAY In Process Unspecified. EDMS 14:03 Femur Left XRAY In Process Unspecified. EDMS 15:11 Sudheer Johnson MD is Referral Physician. ori 16:19 Patient has correct armband on for positive identification. iw 16:19 No provider procedures requiring assistance completed. IV discontinued, intact, iw bleeding controlled, No redness/swelling at site. Pressure dressing applied. Administered Medications: 14:27 Drug: NS 0.9% 500 ml Route: IV; Rate: bolus; Site: right antecubital; iw 15:00 Follow up: IV Status: Completed infusion iw 14:27 Drug: morphine 2 mg Route: IVP; Site: right antecubital; iw 15:00 Follow up: Response: No adverse reaction; Pain is decreased iw 14:27 Drug: Zofran (Ondansetron) 4 mg Route: IVP; Site: right antecubital; iw 15:00 Follow up: Response: No adverse reaction iw Outcome: 15:13 Discharge ordered by . ori 16:19 Discharged to home via wheelchair, with friend. iw 16:19 Condition: good 16:19 Discharge instructions given to patient, Instructed on discharge instructions, follow up and referral plans. Demonstrated understanding of instructions, follow-up care. 16:22 Patient left the ED. iw Signatures: Dispatcher [employer] EDMO Jigar, RanjeetMD MD ori seaman Amelia as Williams, Irene, RN RN david Ball, Jo-Ann kj1
[2021-05-01 16:29] VITALS: BP 160/82; TEMP 97.8; O2SAT 98
== END 2021-05-01 16:22 | disposition home or self-care (01) ==
LOC: ER 11:58
DX: M25.552 Pain in left hip (principal); M54.50 Low back pain, unspecified; E10.65 Type 1 diabetes mellitus with hyperglycemia; W18.30XA Fall on same level, unspecified, initial encounter; Y93.01 Activity, walking, marching and hiking; I10 Essential (primary) hypertension; Z88.0 Allergy status to penicillin
CPT/HCPCS: 96361; 85025; 36415; 80053; 72131; 72192; 72170; 73552; 96375; 96374; 99284; J2270; J7040; J2405

== ENCOUNTER 2021-09-28 11:14 | Emergency (ER) | payer OTHER ==
--- OUTSIDE RECORDS SUMMARY | 2021-09-28 11:19 | XMS REPORT | Continuity of Care Document ---
:[address] [facility] t Address [address] [place] [address] Care Team Providers Name Role Phone Alesha Hicks Attending Clinician Unavailable Problems This patient has no known problems. Allergies, Adverse Reactions, Alerts This patient has no known allergies or adverse reactions. Medications Ordered Filled Start Stop Current Ordering Indication Dosage Frequency Signature Comments Components Source Medication Medication Date Date Medication? Clinician (SIG) Name Name Ozempic (1 Ozempic (1 2019-0 2020- No Matty Inject [address] [facility] [...] 2020- No Matty Inject 0.[address] [facility] 08-18 Hicks mg SC once [facility] Procedures This patient has no known procedures. Encounters Start End Encounter Admission Attending Care Care Encounter Source Date/Time Date/Time Type Type Clinicians Facility Department ID 2021-08-24 Outpatient Hicks, [facility] [id number] [facility] [address] [facility]00 [facility]-07-[facility] [id number] [facility] 2021-07-[facility] [id number] [address] 09:21[facility]01 [facility] 2021-06-[address] [facility] [id number] [address] 13:58:19 Matty [id number] [facility] 2021-06-30 [facility] [id number] [facility] 2021-06-30 Outpatient Hicks, [facility] 13:31:28 [facility] [id number] [facility] 2021-06-30 Outpatient Hicks, [facility] 13:08:27 [facility] [id number] [facility] 2021-06-30 Outpatient Hicks, [facility] 13:07:24 [facility]ty [id number] [facility] 2021-06-30 Outpatient Hicks, [facility] 12:56:09 [facility] [id number] [facility] 2021-06-30 Outpatient Hicks, [facility] 12:44:05 [facility]ty [id number] [facility] 2021-06-30 Outpatient Hicks, [facility] 12:42:02 Matty [id number] [facility] 2021-06-30 Outpatient Hicks, [facility] 12:38:51 [facility]ty [id number] [facility] 2021-06-30 Outpatient Hicks, [facility] 11:46:35 [facility] [id number] [facility] 2021-06-30 Outpatient Hicks, [facility] 11:27:38 Matty [id number] [facility] 2021-06-30 Outpatient Hicks, [facility] 11:21:26 Matty [id number] [facility] 2021-06-30 Outpatient Hicks, [facility] 11:14:30 Matty [id number] [facility] 2021-06-30 Outpatient Hicks, [facility] [id number] [facility] 11:13:17 Matty [id number] [facility] 2021-09-23 2021-09-23 ambulatory [facility] [id number] [facility] 2021-09-08 2021-09-08 ambulatory [facility] [id number] [facility] 2021-09-08 2021-09-08 ambulatory [facility] [id number] [facility] 2021-08-24 2021-08-24 ambulatory [facility] [id number] [facility] 2021-07-29 2021-07-29 ambulatory [facility] [id number] [facility] 2021-07-08 2021-07-08 ambulatory [facility] [id number] [facility] 2021-05-06 2021-05-06 ambulatory [facility] [id number] [facility] 2021-04-19 2021-04-19 ambulatory [facility] [id number] [facility] 2021-01-14 2021-01-14 Outpatient [facility] [id number] [facility] 2020-12-30 2020-12-30 Outpatient [facility] [id number] [facility] 2020-12-02 2020-12-02 Outpatient [facility] [id number] [facility] 2020-11-30 2020-11-30 Outpatient [facility] [id number] [facility] 2020-11-30 2020-11-30 Outpatient [facility] [id number] [facility] 2020-11-23 2020-11-23 Outpatient [facility] [id number] [facility] 2020-11-09 2020-11-09 Outpatient [facility] [id number] [facility] 2020-10-27 2020-10-27 Outpatient [facility] [id number] [facility] 2020-10-15 2020-10-15 Outpatient [facility] [id number] [facility] 2020-10-15 2020-10-15 Outpatient [facility] [id number] [facility] 2020-10-12 2020-10-12 Outpatient [facility] [id number] [facility] 2020-09-29 2020-09-29 Outpatient [facility] [id number] [facility] 2020-09-28 2020-09-28 Outpatient [facility] [id number] [facility] 2020-09-23 2020-09-23 Outpatient [facility] [id number] [facility] 2020-08-20 2020-08-20 Outpatient [facility] [id number] [facility] 2020-07-09 2020-07-09 Outpatient [facility] [id number] [facility] 2020-05-25 2020-05-25 Outpatient [facility] [id number] [facility] 2020-05-22 2020-05-22 Outpatient [facility] [id number] [facility] 2020-05-12 2020-05-12 Outpatient [facility] [id number] [facility] 2020-04-22 2020-04-22 Outpatient [facility] [id number] [facility] 2020-03-17 2020-03-17 Outpatient [facility] [id number] [facility] 2020-02-19 2020-02-19 [facility] [id number] [facility] 14:00:00 14:00:00 t Shibumi s - Drive [facility] Medicine l Medicine Outpati ent Clinics 2020-01-21 2020-01-21 [facility] [id number] 10:45:00 10:45:00 t [place] [employer] s - Drive [facility] l Medicine Outpati ent Clinics 2020-01-06 2020-01-06 [facility] [id number] [facility] 16:49:00 16:49:00 t [place] [employer] s - Drive [facility] Medicine l Medicine Outpati ent Clinics 2019-12-23 2019-12-23 [facility] [id number] 09:00:00 09:00:00 [place] [employer] s - Drive [facility] Medicine l Medicine Outpati ent Clinics 2019-12-13 2019-12-13 [facility] [id number] 11:53:00 11:53:00 t [place] [employer] s - Drive [facility] Medicine l Medicine Outpati ent Clinics 2019-11-21 2019-11-21 [facility] [id number] [facility] 11:25:00 11:25:00 t [place] [employer] s - Drive [facility] Medicine l Medicine Outpati ent Clinics 2019-11-18 2019-11-18 [facility] [id number] [facility] 08:45:00 08:45:00 t [place] [employer] - [employer] [facility] l Medicine Outpati ent Clinics 2019-11-14 2019-11-14 [facility] [id number] [facility] 16:00:00 16:00:00 t [place] [employer] - [employer] [facility] Medicine Outpati ent Clinics 2019-11-05 2019-11-05 [facility] [id number] 14:00:00 14:00:00 t [place] [employer] - [employer] [facility] Medicine Outpati ent Clinics 2019-10-23 2019-10-23 [facility] [id number] 14:00:00 14:00:00 t [place] [employer] - [employer] [facility] l Medicine Outpati ent Clinics 2019-10-23 2019-10-23 [facility] [id number] [facility] 13:00:00 13:00:00 t [place] [employer] - [employer] [facility] Medicine Medicine Outpati ent Clinics 2019-09-11 2019-09-11 [facility] [id number] [facility] 16:41:00 16:41:00 t [place] [employer] - [employer] [facility] l Medicine Outpati ent Clinics 2019-08-29 2019-08-29 [facility] [id number] [facility] 09:26:00 09:26:00 t [place] [employer] - Drive [facility] Medicine Outpati ent Clinics 2019-08-21 2019-08-21 Out[facility] [id number] 10:52:00 10:52:00 t [place] [facility] 2019-08-14 2019-08-14 Outpatient Adrien [facility] [id number] [facility] 13:30:00 13:30:00 [place] [facility] ent Clinics Results This patient has no known results.
--- NOTE | 2021-09-28 11:37 | ER ---
Nurse's Notes [facility] Name: Luanne Fuller Age: 75 yrs Sex: Female : 1945 Arrival Date: 09/28/2021 Time: 11:18 Bed Waiting Private MD: Diagnosis: Assessment: 09/28 11:36 Reassessment: Registration stated pt left about 10 minutes ago. vg1 ED Course: 11:18 Patient arrived in ED. as 11:36 Patient's name was called from ER lobby. No response. Unable to locate patient. Will vg1 disposition as left without being seen by a provider. Administered Medications: No medications were administered Outcome: 11:37 Patient left the ED. vg1 Signatures: Flory Andujar Victoria, RN RN vg1
== END 2021-09-28 11:37 | disposition left against medical advice (07) ==
LOC: ER 11:14
DX: Z02.9 Encounter for administrative examinations, unspecified (principal)

== ENCOUNTER 2021-09-28 18:56 | Emergency (ER) | payer OTHER ==
--- OUTSIDE RECORDS SUMMARY | 2021-09-28 18:59 | XMS REPORT | Continuity of Care Document ---
:1945 Author Organization [facility] t Address [address] [place] [address] Care Team Providers Name Role Phone Alesha [...] [facility] Procedures This patient has no known procedures. Encounters Start End Encounter Admission Attending Care Care Encounter Source Date/Time Date/Time Type Type Clinicians Facility Department ID 2021-08-24 Outpatient Hicks, [facility] [id number] [facility] [facility] 10:[facility]00 [facility] 2021-07-29 [facility] [id number] 10:45:02 [facility] 2021-07-19 [facility] [id number] 09:21:01 [facility] 2021-06-30 Outpatient Hicks [facility] [id number] 13:58:19 Matty [id number] [facility] 2021-06-30 [facility]12 [facility] [id number] [facility] 2021-06-30 Outpatient Hicks, [facility] 13:31:28 Matty [id number] [facility] 2021-06-30 Outpatient Hicks, [facility] 13:08:27 [facility]ty [id number] [facility] 2021-06-30 Outpatient Hicks, [facility] 13:07:24 Matty [id number] [facility] 2021-06-30 Outpatient Hicks, [facility] 12:56:09 Matty [id number] [facility] 2021-06-30 Outpatient Hicks, [facility] 12:44:05 Matty [id number] [facility] 2021-06-30 Outpatient Hicks, [facility] 12:42:02 Matty [id number] [facility] 2021-06-30 Outpatient Hicks, [facility] 12:38:51 Matty [id number] [facility] 2021-06-30 Outpatient Hicks, [facility] 11:46:35 Matty [id number] [facility] 2021-06-30 Outpatient Hicks, [facility] 11:27:38 Matty [id number] [facility] 2021-06-30 Outpatient Hicks, [facility] 11:21:26 Matty [id number] [facility] 2021-06-30 Outpatient Hicks, [facility] 11:14:30 Matty [id number] [facility] 2021-06-30 Outpatient Hicks, [facility] [id number] 11:13:17 Matty [id number] [facility] 2021-09-23 2021-09-23 ambulatory [facility] [id number] [facility]00 [facility] 2021-09-08 2021-09-08 ambulatory [facility] [id number] [facility]00 [facility] 2021-09-08 2021-09-08 ambulatory [facility] [id number] [facility]00 [facility] 2021-08-24 2021-08-24 ambulatory [facility] [id number] [facility]00 [facility] 2021-07-29 2021-07-29 ambulatory [facility] [id number] [facility]00 [facility] 2021-07-08 2021-07-08 ambulatory [facility] [id number] [facility] 2021-05-06 2021-05-06 ambulatory [facility] [id number] [facility] 2021-04-19 2021-04-19 ambulatory [facility] [id number] [facility] 2021-01-14 2021-01-14 Outpatient [facility] [id number] [facility] 2020-12-30 2020-12-30 Outpatient [facility] [id number] [facility] 2020-12-02 2020-12-02 Outpatient [facility] [id number] [facility] 2020-11-30 2020-11-30 Outpatient [facility] [id number] [facility] 2020-11-30 2020-11-30 Outpatient [facility] [id number] [facility] 2020-11-23 2020-11-23 Outpatient [facility] [id number] [facility] 2020-11-09 2020-11-09 Outpatient [facility] [id number] [facility] 2020-10-27 2020-10-27 Outpatient [facility] [id number] [facility] 2020-10-15 2020-10-15 Outpatient [facility] [id number] [facility] 2020-10-15 2020-10-15 Outpatient [facility] [id number] [facility] 2020-10-12 2020-10-12 Outpatient [facility] [id number] [facility] 2020-09-29 2020-09-29 Outpatient [facility] [id number] [facility] 2020-09-28 2020-09-28 Outpatient [facility] [id number] [facility] 2020-09-23 2020-09-23 Outpatient [facility] [id number] [facility] 2020-08-20 2020-08-20 Outpatient [facility] [id number] [facility] 2020-07-09 2020-07-09 Outpatient [facility] [id number] [facility] 2020-05-25 2020-05-25 Outpatient [facility] [id number] [facility] 2020-05-22 2020-05-22 Outpatient [facility] [id number] [facility] 2020-05-12 2020-05-12 Outpatient [facility] [id number] [facility] 2020-04-22 2020-04-22 Outpatient [facility] [id number] [facility] 2020-03-17 2020-03-17 Outpatient [facility] [id number] [facility] 2020-02-19 2020-02-19 [facility] [id number] [facility] 14:00:00 14:00:00 t [employer] s - Drive [facility] l Medicine Outpati ent Clinics 2020-01-21 2020-01-21 [facility] [id number] 10:45:00 10:45:00 t [place] [email or web address] s - Drive [facility] l Medicine Outpati ent Clinics 2020-01-06 2020-01-06 [facility] [id number] [facility] 16:49:00 16:49:00 t [place] [employer] s - Drive [facility] Medicine l Medicine Outpati ent Clinics 2019-12-23 2019-12-23 [facility] [id number] [facility] 09:00:00 09:00:00 [place] [employer] s - Drive [facility] Medicine l Medicine Outpati ent Clinics 2019-12-13 2019-12-13 [facility] [id number] 11:53:00 11:53:00 t [place] [employer] s - Drive [facility] Medicine l Medicine Outpati ent Clinics 2019-11-21 2019-11-21 [facility] [id number] [facility] 11:25:00 11:25:00 t [place] [employer] s - Drive [facility] Medicine l Medicine Outpati ent Clinics 2019-11-18 2019-11-18 [facility] [id number] [facility] 08:45:00 08:45:00 t [place] [employer] [facility] l Medicine Outpati ent Clinics 2019-11-14 2019-11-14 [facility] [id number] [facility] 16:00:00 16:00:00 t [place] [employer] [facility] Medicine Outpati ent Clinics 2019-11-05 2019-11-05 [facility] [id number] 14:00:00 14:00:00 t [place] [employer] [facility] Medicine Outpati ent Clinics 2019-10-23 2019-10-23 [facility] [id number] 14:00:00 14:00:00 t [place] [employer] [facility] l Medicine Outpati ent Clinics 2019-10-23 2019-10-23 [facility] [id number] [facility] 13:00:00 13:00:00 t [place] [employer] [facility] Medicine Medicine Outpati ent Clinics 2019-09-11 2019-09-11 [facility] [id number] [facility] 16:41:00 16:41:00 t [place] [employer] [facility] l Medicine Outpati ent Clinics 2019-08-29 2019-08-29 [facility] [id number] [facility] 09:26:00 09:26:00 t [place] [employer] s - Drive [facility] Medicine Outpati ent Clinics 2019-08-21 2019-08-21 Outpatient [facility] [id number] [facility] 10:52:00 10:52:00 t [employer] [facility] 2019-08-14 2019-08-14 Outpatient Adrien [facility] [id number] [facility] 13:30:00 13:30:00 [employer] [facility] ent Clinics Results This patient has no known results.
[2021-09-28 20:27] LABS: Absolute Lymphocytes (CBC) 2.3 K/uL (0.7-4.9); Hematocrit 33.3 % (36.0-45.0); Lymphocytes % 32.5 % (15.3-44.8); MPV 10.7 fL (7.6-11.3); RBC Red Blood Cell Count 3.81 M/uL (3.86-4.86)
[2021-09-28 20:28] LABS: Protime INR 0.89
[2021-09-28 20:47] LABS: ALT/SGPT 39 U/L (12-78); AST/SGOT 27 U/L (15-37); Alkaline Phosphatase 98 U/L (45-117); BUN Blood Urea Nitrogen 18 mg/dL (7-18); Bicarbonate 29 mmol/L (21-32); Bilirubin Total 0.2 mg/dL (0.2-1.0); Glucose Level 211 mg/dL (74-106); Lipase 211 U/L (73-393); Magnesium 1.9 mg/dL (1.8-2.4); NT PRO-BNP 165 pg/mL (<125); Potassium 3.5 mmol/L (3.5-5.1); Protein, Total 6.7 g/dL (6.4-8.2); Sodium Level 141 mmol/L (136-145); Troponin High Sensitivity 9.9 pg/mL (<58.9)
[2021-09-28 20:49] LABS: Bilirubin Direct < 0.1 mg/dL (0-0.2)
[2021-09-28] MEDS ORDERED: NA CHLORIDE 0.9% 1,000 ML ONE (21:18)
--- NOTE | 2021-09-28 21:25 | RAD REPORT ---
EXAM DESCRIPTION: RAD - Chest Single View - 09/28/2021 9:17 pm CLINICAL HISTORY: COUGH COMPARISON: Chest Single View dated 08/16/2019; Chest Single View dated 01/26/2019; CHEST SINGLE VIEW dated 10/22/2013; CHEST SINGLE VIEW dated 01/14/2013 FINDINGS: Lines: None. Lungs: No evidence of edema or pneumonia. Pleural: No significant pleural effusions or pneumothorax. Cardiac: The heart size is within normal limits. Bones: No acute fractures. Other: IMPRESSION: No acute cardiopulmonary disease.
--- NOTE | 2021-09-28 21:47 | RAD REPORT ---
EXAM DESCRIPTION: US - Extrem Venous W Compress Charly - 09/28/2021 9:32 pm CLINICAL HISTORY: Pain COMPARISON: None TECHNIQUE: Real-time sonographic evaluation of the lower extremity deep venous systems was performed using color Doppler, grayscale, and compression. FINDINGS: Bilateral lower extremities. Normal compressibility, flow augmentation, phasic flow and spontaneous flow is identified in both the left and right lower extremity deep venous systems. Linear nonocclusive filling defect in the left p opliteal vein. The vein does compress. Left popliteal fossa cyst measuring 15 millimeters. IMPRESSION: No acute DVT in either lower extremity. Linear nonocclusive filling defect in the left popliteal vein may be sequela of a prior deep venous t hrombosis. The vein does compress.
--- NOTE | 2021-09-28 22:18 | RAD REPORT ---
EXAM DESCRIPTION: CT - Chest For Pe Angio - 09/28/2021 10:08 pm CLINICAL HISTORY: shortness of breath COMPARISON: Abdomen Pelvis W Contrast dated 08/16/2019 FINDINGS: Chest Wall: No suspicious thyroid nodules or pathologic lymphadenopathy. Lungs: 5 mm left lower lobe pulmonary nodule this is unchanged since 08/16/2019. . Pleura: No significant effusions or pneumothorax. Mediastinum/kena: No pathologic lymphadenopathy. Pulmonary arteries/Aorta: No filling defect identified. No aortic aneurysm. Heart: No significant pericardial effusion. Normal heart size. Multi-vessel coronary artery disease. Upper abdomen: No acute abnormality. Cholelithiasis. Bones: No acute abnormality. All CT scans are performed using dose optimization technique as appropriate and may include automated exposure control or mA/KV adjustment according to patient size. IMPRESSION: Negative for pulmonary embolism. No acute findings in the chest.
--- NOTE | 2021-09-28 22:26 | EDPHYS ---
Physician Documentation [facility] Name: Luanne Fuller Age: 75 yrs Sex: Female : 1945 Arrival Date: 09/28/2021 Time: 18:59 Bed 20 Private MD: ED Physician Ranjeet Kimball HPI: 09/28 19:54 This 75 yrs old Female presents to ER via Ambulatory with complaints of Leg ori Swelling. 19:54 The patient presents with decreased range of motion, pain, that is acute. The ori complaints affect the right leg and left leg. Context: The problem was sustained at an unknown site. Onset: The symptoms/episode began/occurred 3 day(s) ago. Modifying factors: The symptoms are alleviated by nothing. the symptoms are aggravated by nothing. Associated signs and symptoms: The patient has no apparent associated signs or symptoms. legs and face swelling. Treatment prior to arrival includes: no previous treatment. Severity of symptoms: At their worst the symptoms were mild in the emergency department the symptoms are unchanged. Historical: - Allergies: 19:42 PENICILLINS; lp1 - Home Meds: 19:42 Metformin Oral [Active]; Trulicity subcutaneous [Active]; glimepiride 1 mg Oral tab 1 lp1 tab once daily [Active]; - PMHx: 19:42 Diabetes - IDDM; lp1 - PSHx: 19:42 None; lp1 - Immunization history:: Adult Immunizations up to date, Client reports receiving the 2nd dose of the Covid vaccine. - Social history:: Smoking status: Patient denies any tobacco usage or history of. - Family history:: not pertinent. ROS: 19:54 Constitutional: Negative for fever, chills, and weight loss, Eyes: Negative for injury, ori pain, redness, and discharge, ENT: Negative for injury, pain, and discharge, Neck: Negative for injury, pain, and swelling, Cardiovascular: Negative for chest pain, palpitations, and edema, Respiratory: Negative for shortness of breath, cough, wheezing, and pleuritic chest pain, Abdomen/GI: Negative for abdominal pain, nausea, vomiting, diarrhea, and constipation, Back: Negative for injury and pain, : Negative for injury, bleeding, discharge, and swelling, Skin: Negative for injury, rash, and discoloration, Neuro: Negative for headache, weakness, numbness, tingling, and seizure, Psych: Negative for depression, anxiety, suicide ideation, homicidal ideation, and hallucinations, Allergy/Immunology: Negative for hives, rash, and allergies, Endocrine: Negative for neck swelling, polydipsia, polyuria, polyphagia, and marked weight changes, Hematologic/Lymphatic: Negative for swollen nodes, abnormal bleeding, and unusual bruising. 19:54 MS/extremity: Positive for swelling. Exam: 19:54 Constitutional: This is a well developed, well nourished patient who is awake, alert, ori and in no acute distress. Head/Face: Normocephalic, atraumatic. Eyes: Pupils equal round and reactive to light, extra-ocular motions intact. Lids and lashes normal. Conjunctiva and sclera are non-icteric and not injected. Cornea within normal limits. Periorbital areas with no swelling, redness, or edema. ENT: Nares patent. No nasal discharge, no septal abnormalities noted. Tympanic membranes are normal and external auditory canals are clear. Oropharynx with no redness, swelling, or masses, exudates, or evidence of obstruction, uvula midline. Mucous membranes moist. Neck: Trachea midline, no thyromegaly or masses palpated, and no cervical lymphadenopathy. Supple, full range of motion without nuchal rigidity, or vertebral point tenderness. No Meningismus. Chest/axilla: Normal chest wall appearance and motion. Nontender with no deformity. No lesions are appreciated. Cardiovascular: Regular rate and rhythm with a normal S1 and S2. No gallops, murmurs, or rubs. Normal PMI, no JVD. No pulse deficits. Respiratory: Lungs have equal breath sounds bilaterally, clear to auscultation and percussion. No rales, rhonchi or wheezes noted. No increased work of breathing, no retractions or nasal flaring. Abdomen/GI: Soft, non-tender, with normal bowel sounds. No distension or tympany. No guarding or rebound. No evidence of tenderness throughout. Back: No spinal tenderness. No costovertebral tenderness. Full range of motion. Female : Normal external genitalia. Skin: Warm, dry with normal turgor. Normal color with no rashes, no lesions, and no evidence of cellulitis. Neuro: Awake and alert, GCS 15, oriented to person, place, time, and situation. Cranial nerves II-XII grossly intact. Motor strength 5/5 in all extremities. Sensory grossly intact. Cerebellar exam normal. Normal gait. Psych: Awake, alert, with orientation to person, place and time. Behavior, mood, and affect are within normal limits. 19:54 Musculoskeletal/extremity: Circulation is intact in all extremities. Sensation intact. Compartment Syndrome exam of affected extremity: is normal. Weight bearing: able to fully bear weight, Tendon exam: specific tendon testing normal through active and passive range of motion DVT Exam: no pain, no tenderness, negative Homans' sign noted on exam, no appreciated bluish discoloration, no erythema, no increased warmth, swelling. 20:54 ECG was reviewed by the Attending Physician. [facility] Vital Signs: 19:40 BP 183 / 74; Pulse 75; Resp 18; Temp 97.1(TE); Pulse Ox 100% on R/A; Weight 63.05 kg lp1 (R); Pain 0/10; 21:31 BP 176 / 65; Pulse 72; Resp 17 S; Pulse Ox 100% on R/A; lg3 21:31 BP 172 / 66; Pulse 74; Resp 17; Pulse Ox 100% on R/A; lg3 MDM: 19:29 Patient medically screened. [facility] 19:54 Differential diagnosis: contusion. Data reviewed: vital signs, nurses notes, lab test [facility] result(s), EKG, radiologic studies, plain films. Data interpreted: property assessment monitor: rate is 75 beats/min, rhythm is regular, Pulse oximetry: on room air. Test interpretation: by ED physician or midlevel provider: ECG, plain radiologic studies. Counseling: I had a detailed discussion with the patient and/or guardian regarding: the historical points, exam findings, and any diagnostic results supporting the discharge/admit diagnosis, lab results, radiology results. 09/28 19:53 Order name: Basic Metabolic Panel; Complete Time: 21:06 [facility] 09/28 19:53 Order name: CBC with Diff; Complete Time: 21:06 [facility] 09/28 19:53 Order name: LFT's; Complete Time: 21:06 [facility] 09/28 19:53 Order name: Magnesium; Complete Time: 21:06 [facility] 09/28 19:53 Order name: NT PRO-BNP; Complete Time: 21:06 [facility] 09/28 19:53 Order name: PT-INR; Complete Time: 21:06 [facility] 09/28 19:53 Order name: Troponin HS; Complete Time: 21:06 [facility] 09/28 19:53 Order name: XRAY Chest (1 view); Complete Time: 21:37 [facility] 09/28 19:53 Order name: US Extremity Venous W Compression Charly; Complete Time: 22:00 [facility] 09/28 19:53 Order name: Lipase; Complete Time: 21:06 [facility] 09/28 22:39 Order name: Urine Culture [facility] 09/28 22:40 Order name: Urine Dipstick-Ancillary EDMS 09/28 22:44 Order name: Urine Microscopic Only [facility] 09/28 19:53 Order name: EKG; Complete Time: 19:54 [facility] 09/28 19:53 Order name: Cardiac monitoring; Complete Time: 20:42 [facility] 09/28 19:53 Order name: EKG - Nurse/Tech; Complete Time: 20:42 [facility] 09/28 19:53 Order name: IV Saline Lock; Complete Time: 20:19 [facility] 09/28 19:53 Order name: Labs collected and sent; Complete Time: 20:19 [facility] 09/28 19:53 Order name: O2 Per Protocol; Complete Time: 20:19 [facility] 09/28 19:53 Order name: O2 Sat Monitoring; Complete Time: 20:19 [facility] 09/28 19:53 Order name: Urine Dipstick-Ancillary (obtain specimen); Complete Time: 22:43 [facility] 09/28 21:52 Order name: Chest For Pe Angio; Complete Time: 22:20 EDMS EC:54 Rate is 67 beats/min. Rhythm is regular. QRS [place] is Normal. RI interval is normal. QRS ori interval is normal. QT interval is normal. No Q waves. T waves are Normal. No ST changes noted. Clinical impression: NSR w/ Non-specific ST/T Changes and No evidence of ischemia. Interpreted by me. Reviewed by me. Administered Medications: 21:32 Drug: NS 0.9% 1000 ml Route: IV; Rate: 75 ml/hr; Site: right antecubital; lg3 23:02 Follow up: Response: No adverse reaction; IV Status: Completed infusion; IV Intake: lg3 200ml 22:50 Drug: Rocephin (cefTRIAXone) 1 grams Route: IV; Rate: per protocol; Site: right lg3 antecubital; 23:02 Follow up: Response: No adverse reaction; IV Status: Completed infusion; IV Intake: [id number] Disposition Summary: 09/28/21 22:26 Discharge Ordered Location: Home ori Problem: new ori Symptoms: have improved ori Condition: Stable ori Diagnosis - Edema, unspecified ori - Type 1 diabetes mellitus with hyperglycemia ori - UTI/ Urinary tract infection, site not specified ori Followup: ori - With: Private Physician - When: 2 - 3 days - Reason: Recheck today's complaints, Continuance of care, Re-evaluation by your physician Followup: ori - With: Will Nation MD - When: 2 - 3 days - Reason: Recheck today's complaints, Re-evaluation by your physician Discharge Instructions: - Discharge Summary Sheet ori - Potassium Content of Foods ori - Edema ori - Hyperglycemia ori - Urinary Tract Infection, Adult ori - Urinary Tract Infection, Adult, Zilk-zq-Ozwg ori - Edema, Fusm-po-Imrb ori - Diabetes Mellitus and Nutrition, Adult ori - Hyperglycemia, Tcuz-er-Fpbe ori - Peripheral Edema ori - Hypertension, Adult cp - Hypertension, Adult, Ygfp-sa-Pouq cp - Managing Your Hypertension cp Forms: - Medication Reconciliation Form ori - Thank You Letter ori - Antibiotic Education ori - Prescription Opioid Use [facility] Prescriptions: - Cipro 250 mg Oral Tablet - take 1 tablet by ORAL route every 12 hours; 14 tablet; Refills: 0, Product ori Selection Permitted - Lisinopril-Hydrochlorothiazide 10-12.5 mg Oral Tablet - take 1 tablet by ORAL route once daily; 20 tablet; Refills: 0, Product ori Selection Permitted - Potassium Chloride 10 mEq Oral capsule, extended release - take 1 tablet by ORAL route every 12 hours; 20 tablet; Refills: 0, Product ori Selection Permitted Signatures: Dispatcher [employer] Ranjeet Hudson MD MD cha Pena, Laura RN RN lp1 Arsh Ochoa FNP-C BHARTI-Blanca Jacques, RN RN lg3 Corrections: (The following items were deleted from the chart) 19:42 19:42 PMHx: Hypertension; lp1 lp1
--- NOTE | 2021-09-28 22:26 | ER ---
Nurse's Notes [facility] Name: Luanne Fuller Age: 75 yrs Sex: Female : 1945 Arrival Date: 09/28/2021 Time: 18:59 Bed 20 Private MD: Diagnosis: Edema, unspecified;Type 1 diabetes mellitus with hyperglycemia;UTI/ Urinary tract infection, site not specified Presentation: 09/28 19:40 Chief complaint: Patient states: bilateral leg swelling, facial swelling x 2 weeks, lp1 worsening; shortness of breath when laying flat at night. Coronavirus screen: At this time, the client does not indicate any symptoms associated with coronavirus-19. Ebola Screen: No symptoms or risks identified at this time. Initial Sepsis Screen: Does the patient meet any 2 criteria? No. Patient's initial sepsis screen is negative. Does the patient have a suspected source of infection? No. Patient's initial sepsis screen is negative. Risk Assessment: Do you want to hurt yourself or someone else? Patient reports no desire to harm self or others. Onset of symptoms was September 28, 2021. 19:40 Method Of Arrival: Ambulatory lp1 19:40 Acuity: DAYANA 3 lp1 Historical: - Allergies: 19:42 PENICILLINS; lp1 - Home Meds: 19:42 Metformin Oral [Active]; Trulicity subcutaneous [Active]; glimepiride 1 mg Oral tab 1 lp1 tab once daily [Active]; - PMHx: 19:42 Diabetes - IDDM; lp1 - PSHx: 19:42 None; lp1 - Immunization history:: Adult Immunizations up to date, Client reports receiving the 2nd dose of the Covid vaccine. - Social history:: Smoking status: Patient denies any tobacco usage or history of. - Family history:: not pertinent. Screenin:43 Abuse screen: Denies threats or abuse. Denies injuries from another. Nutritional lg3 screening: No deficits noted. Tuberculosis screening: No symptoms or risk factors identified. Fall Risk None identified. Assessment: 20:43 General: Appears in no apparent distress. comfortable, Behavior is calm, cooperative. lg3 Pain: Denies pain. Neuro: No deficits noted. Level of Consciousness is awake, alert, obeys commands, Oriented to person, place, time, situation. Cardiovascular: No deficits noted. Denies chest pain, shortness of breath, Capillary refill < 3 seconds Clubbing of nail beds is absent JVD is absent Patient's skin is warm and dry. Respiratory: No deficits noted. Reports shortness of breath laying flat Airway is patent Trachea midline Respiratory effort is even, unlabored, Respiratory pattern is regular, symmetrical. GI: No deficits noted. No signs and/or symptoms were reported involving the gastrointestinal system. : No deficits noted. No signs and/or symptoms were reported regarding the genitourinary system. EENT: No deficits noted. No signs and/or symptoms were reported regarding the EENT system. Derm: No deficits noted. No signs and/or symptoms reported regarding the dermatologic system. Skin is intact, is healthy with good turgor, Skin is dry, Skin is pink, warm \T\ dry. 20:43 Musculoskeletal: No deficits noted. No signs and/or symptoms reported regarding the lg3 musculoskeletal system. Circulation, motion, and sensation intact. Range of motion: intact in all extremities, Swelling present in right and left ankle. 22:59 Reassessment: Patient appears in no apparent distress at this time. No changes from lg3 previously documented assessment. Patient and/or family updated on plan of care and expected duration. Pain level reassessed. Patient is alert, oriented x 3, equal unlabored respirations, skin warm/dry/pink. Patient denies pain at this time. Patient states feeling better. Vital Signs: 19:40 BP 183 / 74; Pulse 75; Resp 18; Temp 97.1(TE); Pulse Ox 100% on R/A; Weight 63.05 kg lp1 (R); Pain 0/10; 21:31 BP 176 / 65; Pulse 72; Resp 17 S; Pulse Ox 100% on R/A; lg3 21:31 BP 172 / 66; Pulse 74; Resp 17; Pulse Ox 100% on R/A; lg3 ED Course: 18:59 Patient arrived in ED. ds1 19:29 Ranjeet Kimball MD is Attending Physician. ori 19:42 Triage completed. lp1 19:42 Arm band placed on right wrist. lp1 20:00 Blanca Gray RN is Primary Nurse. lg3 20:10 Initial lab(s) drawn, by me, sent to lab. Inserted saline lock: 18 gauge in right jb4 antecubital area, using aseptic technique. Blood collected. 20:29 Basic Metabolic Panel Sent. lg3 20:29 CBC with Diff Sent. lg3 20:29 LFT's Sent. lg3 20:29 Magnesium Sent. lg3 20:29 NT PRO-BNP Sent. lg3 20:29 Troponin HS Sent. lg3 20:43 Patient has correct armband on for positive identification. Placed in gown. Bed in low lg3 position. Call light in reach. Side rails up X 1. gambling monitor on. Pulse ox on. NIBP on. Door closed. Noise minimized. Warm blanket given. 21:19 XRAY Chest (1 view) In Process Unspecified. EDMS 21:33 US Extremity Venous W Compression Charly In Process Unspecified. EDMS 22:10 Chest For Pe Angio In Process Unspecified. EDMS 22:26 Will Nation MD is Referral Physician. [facility] 22:44 Urine Culture Sent. lg3 23:01 No provider procedures requiring assistance completed. IV discontinued, intact, lg3 bleeding controlled, No redness/swelling at site. Pressure dressing applied. 23:02 Urine Microscopic Only Sent. lg3 Administered Medications: 21:32 Drug: NS 0.9% 1000 ml Route: IV; Rate: 75 ml/hr; Site: right antecubital; lg3 23:02 Follow up: Response: No adverse reaction; IV Status: Completed infusion; IV Intake: lg3 200ml 22:50 Drug: Rocephin (cefTRIAXone) 1 grams Route: IV; Rate: per protocol; Site: right lg3 antecubital; 23:02 Follow up: Response: No adverse reaction; IV Status: Completed infusion; IV Intake: [id number] Intake: 23:02 IV: 10ml; Total: 10ml. lg3 23:02 IV: 200ml; Total: 210ml. lg3 Outcome: 22:26 Discharge ordered by . ori 23:01 Discharged to home ambulatory, with family. lg3 23:01 Condition: stable 23:01 Discharge instructions given to patient, family, Instructed on discharge instructions, follow up and referral plans. medication usage, Demonstrated understanding of instructions, follow-up care, medications, Prescriptions given X 3. 23:03 Patient left the ED. lg3 Signatures: Dispatcher [employer] Ranjeet Hudson MD MD cha Sanford, Demi ds1 Marisel Juarez RN RN lp1 Tarun Reardon RN RN jb4 Blanca Gray RN RN lg3 Corrections: (The following items were deleted from the chart) 1942 19:42 PMHx: Hypertension; lp1 lp1
[2021-09-28 22:39] LABS: Urine Blood Trace-intact (Negative); Urine Glucose Trace (Negative); Urine Protein Negative (Negative); Urine Specific Gravity 1.015 (1.005-1.030)
[2021-09-28] MEDS ORDERED: CEFTRIAXONE 1000 MG/VIAL ONE (22:49)
[2021-09-29 00:22] LABS: Urine Bacteria NONE SEEN /HPF (<20); Urine RBC <5 /HPF (NONE SEEN); Urine Urothelial Cells <5 /HPF (NONE SEEN)
[2021-09-29 01:25] VITALS: TEMP 97.1; O2SAT 100
[2021-09-29 01:27] VITALS: BP 172/66
== END 2021-09-28 23:03 | disposition home or self-care (01) ==
LOC: ER 18:56
DX: R60.9 Edema, unspecified (principal); E10.65 Type 1 diabetes mellitus with hyperglycemia; N39.0 Urinary tract infection, site not specified; Z79.4 Long term (current) use of insulin; Z88.0 Allergy status to penicillin
CPT/HCPCS: 96361; 87088; 85025; 87086; 80048; 36415; 83735; 85610; 80076; 84484; 83690; 83880; 71275; 71045; 93970; 96374; 99284; Q9967; J7030; 81003; 81015

== ENCOUNTER 2022-10-05 06:30 | Day surgery (SDC) | payer OTHER ==
[2022-10-03 11:04] LABS: Absolute Lymphocytes (CBC) 2.4 K/uL (0.7-4.9); Hematocrit 31.7 % (36.0-45.0); Lymphocytes % 26.2 % (15.3-44.8); MCV 81.2 fL (80-100); MPV 9.6 fL (7.6-11.3); RBC Red Blood Cell Count 3.91 M/uL (3.86-4.86)
[2022-10-03 11:08] LABS: Protime INR 0.95
[2022-10-03 11:23] LABS: Potassium 3.5 mEq/L (3.5-5.1)
--- NOTE | 2022-10-03 11:32 | RAD REPORT ---
EXAM DESCRIPTION: RAD - Chest Pa And Lat (2 Views) - 10/03/2022 10:28 am CLINICAL HISTORY: PRE PROCEDURE, hypertension, diabetes COMPARISON: Chest Single View dated 09/28/2021; Chest Single View dated 08/16/2019; Chest Single View dated 01/26/2019; CHEST SINGLE VIEW dated 10/22/2013 FINDINGS: Lines: None. Lungs: No evidence of edema or pneumonia. Pleural: No significant pleural effusions or pneumothorax. Cardiac: The heart size is within normal limits. Mediastinum: Within normal limits. Bones: No acute fractures. Other: None IMPRESSION: No acute cardiopulmonary disease.
[2022-10-03 14:41] VITALS: BMI 21.4
[2022-10-05] MEDS ORDERED: MIDAZOLAM HCL 2 MG/2 ML INJ ONE (06:43)
[2022-10-05] MEDS ORDERED: FENTANYL CITR 100 MCG/2 ML ONE (06:43)
[2022-10-05] MEDS ORDERED: HEPA 1000U/500MLS 2,000 UNIT/1,000 ML BAG IV ONE (06:43)
[2022-10-05] MEDS ORDERED: LIDOCAINE 1% 20 ML MDV ONE (06:43)
[2022-10-05] MEDS ORDERED: HEPARIN 5000 UNIT/ML 1 ML VIAL ONE (06:43)
[2022-10-05] MEDS ORDERED: VERAPAMIL HCL 10 MG/4 ML VIAL IV ONE (06:44)
[2022-10-05] MEDS ORDERED: NITROGLYCERIN/D5W 25 MG/250 ML BTL IV ONE (06:44)
[2022-10-05] MEDS ORDERED: HEPARIN 10,000 UNIT/10 ML VIAL IV ONE ×2 (06:44→08:19)
[2022-10-05] MEDS ORDERED: ATROPINE SULF 1 MG/10 ML SYR IV ONE ×2 (06:44→08:20)
[2022-10-05] MEDS ORDERED: NITROGLYCERIN 100 MCG/ML SYR (for cath lab use only) IV ONE (06:44)
[2022-10-05] MEDS ORDERED: NA CHLORIDE 0.9% 500 ML ONE (07:09)
[2022-10-05] MEDS ORDERED: HYDRALAZINE HCL 20 MG/ML VIAL ONE ×3 (08:01→09:41)
[2022-10-05 09:53] VITALS: O2SAT 100
[2022-10-05 10:19] VITALS: BP 158/58
--- NOTE | 2022-10-05 14:33 | OP ---
Date of Procedure: 10/05/2022 Surgeon: YVETTE ROE Procedure Performed: Peripheral angiogram. Indication: Peripheral vascular disease with claudication. Access: Right radial artery 6-Swiss closed with TR band. Complications: None. Bleeding: Less than 20 mL. Total contrast load was 60 mL. Anesthesia: Total sedation time was 25 minutes. Description Of Procedure: After risks, benefits, and alternatives were explained, the patient agreed to the procedure and signed informed consent. The patient was brought into cardiac catheterization laboratory, prepped and draped in the usual sterile fashion. Then, I accessed right radial artery us ing pediatric micropuncture kit and placed a 6-Swiss Slender sheath. Then, I took a long 4-Swiss p igtail catheter into distal aorta, performed distal aortogram and runoff. Then, I removed the cathet er and the sheath, placed TR band with good hemostasis. Findings: 1.Distal aorta has minimal plaquing, but widely patent. 2.Right common iliac, right external iliac, right common femoral, right profunda all normal, right S FA normal all the way to the distal. There are 2 or 3 focal lesions ranging between 50% to 70% and t hen below the knee, there was diffuse disease involving the peroneal and the anterior tibial arteries . They were severely ranging between 80% to 90%. 3.The left common iliac, left external iliac, left common femoral are all normal as well as the left profunda and then the left SFA has focal 70% to 80% stenosis. It is diffuse and then below the knee , she has diffuse disease mainly involving the anterior tibial 100% occluded and the posterior tibial has diffuse 60% to 70% stenosis. Conclusion: Severe deidk-ymo-rskq peripheral vascular disease. Plan: Schedule intervention on the right side. We will fix the SFA and the axgrt-nyc-erox vessels a nd then at a separate session, we will do the left lower extremity. SR/MODL Voice ID: [id number] Report ID: [id number]
== END 2022-10-05 10:20 | disposition home or self-care (01) ==
LOC: CCL 06:30
PROVIDERS: ATTEND Internal Medicine
DX: I70.213 Atherosclerosis of native arteries of extremities with intermittent claudication, bilateral legs (principal); I70.92 Chronic total occlusion of artery of the extremities; I25.10 Atherosclerotic heart disease of native coronary artery without angina pectoris; E11.9 Type 2 diabetes mellitus without complications; I10 Essential (primary) hypertension; E78.5 Hyperlipidemia, unspecified; Z86.73 Personal history of transient ischemic attack (TIA), and cerebral infarction without residual deficits; Z88.0 Allergy status to penicillin; Z79.899 Other long term (current) drug therapy
CPT/HCPCS: 85025; 80048; 36415; 85610; 85730; 71046; 36200; 75630; 76937; C1893; J1644; J0360 ×3; J2001; J0461 ×2; J2250; J3010; J7040

== ENCOUNTER 2022-12-15 10:20 | Emergency (ER) | payer OTHER ==
--- OUTSIDE RECORDS SUMMARY | 2022-12-15 10:27 | XMS REPORT | Continuity of Care Document ---
:1945 Author Organization [facility] t Address [address] [facility] [address] [place] [address] Care Team Providers Name Role Phone Matty Hicks Attending Clinician Unavailable Zachary Mckeon Attending Clinician Unavailable Jordin Porter Attending Clinician Noe Peter Admitting Clinician Unavailable Payers Payer Name Policy Type Policy Number Effective Date Expiration Date Gloria jane [facility] 53 [id number] 2021 [facility] ADVANTAGE 00:00:00 - [facility] Problems Condition Condition Condition Status Onset Resolution Last Treating Co mments Source Name Details Category Date Date Treatment Clinician Date [id number] 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 [facility] [id number] Hypertrigl Problem Co mmon yceridemia [facility] [id number] Essential Problem Comm on hypertensi Spirit on - [facility] [id number] Chronic Problem Common Idiopathic Spirit Constipati - [facility] on [facility] [id number] 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 insulin Allergies, Adverse Reactions, Alerts Allergy Allergy Status Severity Reaction(s) Onset Inactive Treating Comm ents Source Name Type Date Date Clinician Penic[place] DA Active SV RASH [facility] ins 11-04 Clear 00:00: [place] 00 [facility] [id number] Drug Active rash Common 85 allergy [facility] Social History Social Habit Start Date Stop Date Quantity Comments Source History of Tobacco Use Co mmon [facility] Sex Assigned At Com mon [facility] Smoking Status Start Date Stop Date Source Never Smoker [facility] Medications Ordered Filled Start Stop Current Ordering Indication Dosage Frequency Signature Comments Components Source Medication Medication Date Date Medication? Clinician (SIG) Name Name Ferrous Ferrous No 1{table BID Ferrous Sulfate 325 Sulfate 325 5-11 t} Sulfate (65 Fe) MG (65 Fe) MG 00:00: 325 (65 00 Fe) MG One Touch One Touch No BID One Touch test strips test strips 2-20 test test strips test strips 00:00: strips 00 test strips True Metrix True Metrix No QD True Blood Blood 2-17 Metrix Glucose Glucose 00:00: Blood Test - Test - 00 Glucose Test - Triamcinolo Triamcinolo No 1{appli BID Triamcinol ne ne 1-03 cation} one Acetonide Acetonide 00:00: Acetonide 0.1 % 0.1 % 00 0.1 % Triamcinolo Triamcinolo 0 No 1{appli BID Triamcinol ne ne 1-03 cation} one Acetonide Acetonide 00:00: Acetonide 0.1 % 0.1 % 00 0.1 % Triamcinolo Triamcinolo 2022-0 No 1{appli BID Triamcinol ne ne 1-03 cation} one Acetonide Acetonide 00:00: Acetonide 0.1 % 0.1 % 00 0.1 % Triamcinolo Triamcinolo 2022-0 No 1{appli BID Triamcinol ne ne 1-03 cation} one Acetonide Acetonide 00:00: Acetonide 0.1 % 0.1 % 00 0.1 % Lisinopril/ Lisinopril/ 2021-0 No QD Lisinopril Hctz Hctz 5-20 /Hctz 10-12.5 MG 10-12.5 MG 00:00: 10-12.5 MG 00 Lisinopril/ Lisinopril/ 2021-0 No QD Lisinopril Hctz Hctz 5-20 /Hctz 10-12.5 MG 10-12.5 MG 00:00: 10-12.5 MG 00 Lisinopril/ Lisinopril/ 2021-0 No QD Lisinopril Hctz Hctz 5-20 /Hctz 10-12.5 MG 10-12.5 MG 00:00: 10-12.5 MG 00 Lisinopril/ Lisinopril/ 2021-0 No QD Lisinopril Hctz Hctz 5-20 /Hctz 10-12.5 MG 10-12.5 MG 00:00: 10-12.5 MG 00 Pen Gaastra Pen Gaastra 2021-0 No Pen 31G X 5 MM 31G X 5 MM 4-06 Gaastra 00:00: 31G X 5 MM 00 Pen Gaastra Pen Gaastra 2021-0 No Pen 31G X 5 MM 31G X 5 MM 4-06 Gaastra 00:00: 31G X 5 MM 00 Pen Gaastra Pen Gaastra 2021-0 No Pen 31G X 5 MM 31G X 5 MM 4-06 Gaastra 00:00: 31G X 5 MM 00 Pen Gaastra Pen Gaastra 2021-0 No Pen 31G X 5 MM 31G X 5 MM 4-06 Gaastra 00:00: 31G X 5 MM 00 Pen Gaastra Pen Gaastra 2021-0 No Pen 31G X 5 MM 31G X 5 MM 4-06 Gaastra 00:00: 31G X 5 MM 00 Pen Gaastra Pen Gaastra 2021-0 No Pen 31G X 5 MM 31G X 5 MM 4-06 Gaastra 00:00: 31G X 5 MM 00 Pen Gaastra Pen Gaastra 2021-0 No Pen 31G X 5 MM 31G X 5 MM 4-06 Gaastra 00:00: 31G X 5 MM 00 Pen Gaastra Pen Gaastra 2021-0 No Pen 31G X 5 MM 31G X 5 MM 4-06 Gaastra 00:00: 31G X 5 MM 00 Pen Gaastra Pen Gaastra 2021-0 No Pen 31G X 5 MM 31G X 5 MM 4-06 Gaastra 00:00: 31G X 5 MM 00 Pen Gaastra Pen Gaastra 2021-0 No Pen 31G X 5 MM 31G X 5 MM 4-06 Gaastra 00:00: 31G X 5 MM 00 Pen Gaastra Pen Gaastra 2021-0 No Pen 31G X 5 MM 31G X 5 MM 4-06 Gaastra 00:00: 31G X 5 MM 00 Pen Gaastra Pen Gaastra 2021-0 No Pen 31G X 5 MM 31G X 5 MM 4-06 Gaastra 00:00: 31G X 5 MM 00 Pen Gaastra Pen Gaastra 2021-0 No Pen 31G X 5 MM 31G X 5 MM 4-06 Gaastra 00:00: 31G X 5 MM 00 Pen Gaastra Pen Gaastra 2021-0 No Pen 31G X 5 MM 31G X 5 MM 4-06 Gaastra 00:00: 31G X 5 MM 00 Pen Gaastra Pen Gaastra 2021-0 No Pen 31G X 5 MM 31G X 5 MM 4-06 Gaastra 00:00: 31G X 5 MM 00 Pen Gaastra Pen Gaastra 2021-0 No Pen 31G X 5 MM 31G X 5 MM 4-06 Gaastra 00:00: 31G X 5 MM 00 Ozempic (1 Ozempic (1 2019-0 2020- No Matty Inject 1 Common MG/DOSE) MG/DOSE) 8-18 12-15 Hicks mg Spiri t 00:00: 00:00 - [facility]I 00 :00 [facility] Losartan Losartan 2019-0 Yes Matty 1 tablet Common Potassium Potassium 6-02 Hicks Spir it 00:00: - [facility] 00 [facility] Aspir-Low Aspir-Low Yes Matty 1 tablet Common Hicks [facility] - [facility] Docusate Docusate Yes Matty 1 tablet C ommon Sodium Sodium Hicks as needed Spiri t - [facility]I [facility] Combigan Combigan Yes Matty 1 drop Com mon Hicks into Spirit affected - [facility] eye [facility] Azopt Azopt Yes Matty 1 drop Common Hicks into Spirit affected - [facility] eye [facility] Amitiza Amitiza Yes Matty 1 capsule Co mmon Hicks with food Spirit and water - [facility]I [facility] Lumigan Lumigan Yes Matty 1 drop Commo n Hicks into Spirit affected - [facility]I eye in the [facility] Glimepiride Glimepiride Yes Matty 1 tablet Common Hicks with Spirit breakfast - [facility]I or the [facility] main [facility] meal of [facility] Carvedilol Carvedilol Yes Matty TOME OBDULIA Common Hicks TABLETA Spirit DOS VECES - CHI AL D A CON [facility] Pravastatin Pravastatin Yes Matty TOME OBDULIA Common Sodium Sodium Hicks TABLETA Spirit TODO LOS [facility]I VAZQUEZ [facility] Metformin Metformin Yes Matty 1 tablet Common HCl HCl Hicks with meals Spirit - CHI [facility] Losartan Losartan Yes Matty TOME OBDULIA C ommon Potassium Potassium Hicks TABLETA S pirit TODO LOS [facility] VAZQUEZ [facility] Glimepiride Glimepiride Yes Matty 1 TABLET Common Hicks WITH Spirit BREAKFAST - [facility]I OR THE [facility] MEAL OF [facility] TWICE A DAY ORALLY 90 DAYS Amitiza Amitiza Yes Matty TOME 1 Commo n Hicks CAPSULA Spirit POR VIA - CHI ORAL DOS [facility] KARLA WITH Medical FOOD AND Center WATER Glimepiride Glimepiride No 1{table BID Glimepirid 1 MG 1 MG t_with_ e [address]or_t he_firs t_main_ meal_of _the_da y} Acetaminoph Acetaminoph No Acetaminop en-Codeine en-Codeine hen-Codein #3 #3 e #3 Combigan Combigan No 1{drop_ BID Combigan 0.2-0.5 % 0.2-0.5 % into_af 0.2-0.5 % fected_ eye} Ozempic (1 Ozempic (1 No Ozempic (1 MG/DOSE) 2 MG/DOSE) 2 MG/DOSE) 2 MG/1.5ML MG/1.5ML MG/1.5ML Pravastatin Pravastatin No Pravastati Sodium 40 Sodium 40 n Sodium MG MG 40 MG traMADol traMADol No 1{table traMADol HCl 50 MG HCl 50 MG t_as_ne HCl 50 MG eded} Lumigan Lumigan No 1{drop_ QD Lumigan 0.01 % 0.01 % into_af 0.01 % fected_ eye_in_ the_eve nathaly} Losartan Losartan No 1{table QD Losartan Potassium Potassium t} Potassium 25 MG 25 MG 25 MG tramadol tramadol No tramadol Metformin Metformin No 1{table BID Metformin HCl 1000 MG HCl 1000 MG t_with_ HCl 1000 meals} MG Clindamycin Clindamycin No Clindamyci HCl HCl n HCl Ozempic (1 Ozempic (1 No Ozempic (1 MG/DOSE) 2 MG/DOSE) 2 MG/DOSE) 2 MG/1.5ML MG/1.5ML MG/1.5ML Metformin Metformin No 1{table BID Metformin HCl 1000 MG HCl 1000 MG t_with_ HCl 1000 meals} MG Losartan Losartan No 1{table QD Losartan Potassium Potassium t} Potassium 25 MG 25 MG 25 MG Aspir-Low Aspir-Low No 1{table QD Aspir-Low 81 MG 81 MG t} 81 MG Clindamycin Clindamycin No Clindamyci HCl HCl n HCl Pravastatin Pravastatin No Pravastati Sodium 40 Sodium 40 n Sodium MG MG 40 MG traMADol traMADol No 1{table traMADol HCl 50 MG HCl 50 MG t_as_ne HCl 50 MG eded} Lumigan Lumigan No 1{drop_ QD Lumigan 0.01 % 0.01 % into_af 0.01 % fected_ eye_in_ the_eve nathaly} Acetaminoph Acetaminoph No Acetaminop en-Codeine en-Codeine hen-Codein #3 #3 e #3 Metformin Metformin No 1{table BID Metformin HCl 1000 MG HCl 1000 MG t_with_ HCl 1000 meals} MG Pravastatin Pravastatin No Pravastati Sodium 40 Sodium 40 n Sodium MG MG 40 MG Glimepiride Glimepiride No Glimepirid 1 MG 1 MG e 1 MG Losartan Losartan No 1{table QD Losartan Potassium Potassium t} Potassium 25 MG 25 MG 25 MG Ozempic Ozempic No Ozempic 0.25 or 0.5 0.25 or 0.5 0.25 or MG/DOSE MG/DOSE 0.5 MG/DOSE Amitiza 24 Amitiza 24 No BID Amitiza 24 MCG MCG MCG Combigan Combigan No 1{drop_ BID Combigan 0.2-0.5 % 0.2-0.5 % into_af 0.2-0.5 % fected_ eye} Glimepiride Glimepiride No 1{table BID Glimepirid 1 MG 1 MG t_with_ e [address]_or_t he_firs t_main_ meal_of _the_da y} Losartan Losartan No 1{table QD Losartan Potassium Potassium t} Potassium 25 MG 25 MG 25 MG Metformin Metformin No 1{table BID Metformin HCl 1000 MG HCl 1000 MG t_with_ HCl 1000 meals} MG Losartan Losartan No Losartan Potassium Potassium Potassium 100 MG 100 MG 100 MG Ozempic (1 Ozempic (1 No Ozempic (1 MG/DOSE) 2 MG/DOSE) 2 MG/DOSE) 2 MG/1.5ML MG/1.5ML MG/1.5ML Amitiza 24 Amitiza 24 No Amitiza 24 MCG MCG MCG Metformin Metformin No 1{table BID Metformin HCl 1000 MG HCl 1000 MG t_with_ HCl 1000 meals} MG tramadol tramadol No tramadol Ozempic (1 Ozempic (1 No Ozempic (1 MG/DOSE) 2 MG/DOSE) 2 MG/DOSE) 2 MG/1.5ML MG/1.5ML MG/1.5ML Azopt 1 % Azopt 1 % No 1{drop_ TID Azopt 1 % into_af fected_ eye} Aspir-Low Aspir-Low No 1{table QD Aspir-Low 81 MG 81 MG t} 81 MG Docusate Docusate No 1{table BID Docusate Sodium 100 Sodium 100 t_as_ne Sodium 100 MG MG eded} MG Losartan Losartan No Losartan Potassium Potassium Potassium 25 MG 25 MG 25 MG Combigan Combigan No 1{drop_ BID Combigan 0.2-0.5 % 0.2-0.5 % into_af 0.2-0.5 % fected_ eye} Pravastatin Pravastatin No Pravastati Sodium 40 Sodium 40 n Sodium MG MG 40 MG traMADol traMADol No 1{table traMADol HCl 50 MG HCl 50 MG t_as_ne HCl 50 MG eded} Azopt 1 % Azopt 1 % No 1{drop_ TID Azopt 1 % into_af fected_ eye} Glimepiride Glimepiride No Glimepirid 1 MG 1 MG e 1 MG Lumigan Lumigan No 1{drop_ QD Lumigan 0.01 % 0.01 % into_af 0.01 % fected_ eye_in_ the_eve nathaly} Metformin Metformin No 1{table BID Metformin HCl 1000 MG HCl 1000 MG t_with_ HCl 1000 meals} MG Metformin Metformin No 1{table BID Metformin HCl 1000 MG HCl 1000 MG t_with_ HCl 1000 meals} MG Glimepiride Glimepiride No 1{table BID Glimepirid 1 MG 1 MG t_with_ e [address]_or_t he_firs t_main_ meal_of _the_da y} Metformin Metformin No 1{table BID Metformin HCl 1000 MG HCl 1000 MG t_with_ HCl 1000 meals} MG Acetaminoph Acetaminoph No Acetaminop en-Codeine en-Codeine hen-Codein #3 #3 e #3 Aspir-Low Aspir-Low No 1{table QD Aspir-Low 81 MG 81 MG t} 81 MG Amitiza 24 Amitiza 24 No Amitiza 24 MCG MCG MCG Ozempic (1 Ozempic (1 No Ozempic (1 MG/DOSE) 2 MG/DOSE) 2 MG/DOSE) 2 MG/1.5ML MG/1.5ML MG/1.5ML Losartan Losartan No Losartan Potassium Potassium Potassium 100 MG 100 MG 100 MG Clindamycin Clindamycin No Clindamyci HCl HCl n HCl Ozempic (1 Ozempic (1 No Ozempic (1 MG/DOSE) 2 MG/DOSE) 2 MG/DOSE) 2 MG/1.5ML MG/1.5ML MG/1.5ML tramadol tramadol No tramadol Ozempic Ozempic No Ozempic 0.25 or 0.5 0.25 or 0.5 0.25 or MG/DOSE MG/DOSE 0.5 MG/DOSE Lubiproston Lubiproston No Lubiprosto e 24 MCG e 24 MCG ne 24 MCG Docusate Docusate No 1{table BID Docusate Sodium 100 Sodium 100 t_as_ne Sodium 100 MG MG eded} MG Losartan Losartan No Losartan Potassium Potassium Potassium 25 MG 25 MG 25 MG Combigan Combigan No 1{drop_ BID Combigan 0.2-0.5 % 0.2-0.5 % into_af 0.2-0.5 % fected_ eye} Pravastatin Pravastatin No Pravastati Sodium 40 Sodium 40 n Sodium MG MG 40 MG traMADol traMADol No 1{table traMADol HCl 50 MG HCl 50 MG t_as_ne HCl 50 MG eded} Azopt 1 % Azopt 1 % No 1{drop_ TID Azopt 1 % into_af fected_ eye} Glimepiride Glimepiride No Glimepirid 1 MG 1 MG e 1 MG Lumigan Lumigan No 1{drop_ QD Lumigan 0.01 % 0.01 % into_af 0.01 % fected_ eye_in_ the_eve nathaly} Metformin Metformin No 1{table BID Metformin HCl 1000 MG HCl 1000 MG t_with_ HCl 1000 meals} MG Metformin Metformin No 1{table BID Metformin HCl 1000 MG HCl 1000 MG t_with_ HCl 1000 meals} MG Glimepiride Glimepiride No 1{table BID Glimepirid 1 MG 1 MG t_with_ e [address]_or_t he_firs t_main_ meal_of _the_da y} Metformin Metformin No 1{table BID Metformin HCl 1000 MG HCl 1000 MG t_with_ HCl 1000 meals} MG Acetaminoph Acetaminoph No Acetaminop en-Codeine en-Codeine hen-Codein #3 #3 e #3 Aspir-Low Aspir-Low No 1{table QD Aspir-Low 81 MG 81 MG t} 81 MG Amitiza 24 Amitiza 24 No Amitiza 24 MCG MCG MCG Ozempic (1 Ozempic (1 No Ozempic (1 MG/DOSE) 2 MG/DOSE) 2 MG/DOSE) 2 MG/1.5ML MG/1.5ML MG/1.5ML Losartan Losartan No Losartan Potassium Potassium Potassium 100 MG 100 MG 100 MG Clindamycin Clindamycin No Clindamyci HCl HCl n HCl Ozempic (1 Ozempic (1 No Ozempic (1 MG/DOSE) 2 MG/DOSE) 2 MG/DOSE) 2 MG/1.5ML MG/1.5ML MG/1.5ML tramadol tramadol No tramadol Ozempic Ozempic No Ozempic 0.25 or 0.5 0.25 or 0.5 0.25 or MG/DOSE MG/DOSE 0.5 MG/DOSE Lubiproston Lubiproston No Lubiprosto e 24 MCG e 24 MCG ne 24 MCG Docusate Docusate No 1{table BID Docusate Sodium 100 Sodium 100 t_as_ne Sodium 100 MG MG eded} MG Azopt 1 % Azopt 1 % No 1{drop_ TID into_af fected_ eye} Glimepiride Glimepiride No 1 MG 1 MG Lumigan Lumigan No 1{drop_ QD 0.01 % 0.01 % into_af fected_ eye_in_ the_evemilia castillog} Metformin Metformin No 1{table BID HCl 1000 MG HCl 1000 MG t_with_ meals} Pravastatin Pravastatin No Sodium 40 Sodium 40 MG MG Losartan Losartan No Potassium Potassium 100 MG 100 MG Ozempic (1 Ozempic (1 No MG/DOSE) 2 MG/DOSE) 2 MG/1.5ML MG/1.5ML Metformin Metformin No 1{table BID HCl 1000 MG HCl 1000 MG t_with_ meals} Aspir-Low Aspir-Low No 1{table QD 81 MG 81 MG t} Metformin Metformin No 1{table BID HCl 1000 MG HCl 1000 MG t_with_ meals} Amitiza 24 Amitiza 24 No MCG MCG Clindamycin Clindamycin No HCl HCl traMADol traMADol No 1{table HCl 50 MG HCl 50 MG t_as_ne eded} Combigan Combigan No 1{drop_ BID 0.2-0.5 % 0.2-0.5 % into_af fected_ eye} tramadol tramadol No Lubiproston Lubiproston No e 24 MCG e 24 MCG Docusate Docusate No 1{table BID Sodium 100 Sodium 100 t_as_ne MG MG eded} Ozempic (1 Ozempic (1 No MG/DOSE) 2 MG/DOSE) 2 MG/1.5ML MG/1.5ML Ozempic Ozempic No 0.25 or 0.5 0.25 or 0.5 MG/DOSE MG/DOSE Acetaminoph Acetaminoph No en-Codeine en-Codeine #3 #3 Losartan Losartan No Potassium Potassium 25 MG 25 MG Azopt 1 % Azopt 1 % No 1{drop_ TID Azopt 1 % into_af fected_ eye} Lumigan Lumigan No 1{drop_ QD Lumigan 0.01 % 0.01 % into_af 0.01 % fected_ eye_in_ the_eve nathaly} Combigan Combigan No 1{drop_ BID Combigan 0.2-0.5 % 0.2-0.5 % into_af 0.2-0.5 % fected_ eye} Pravastatin Pravastatin No Pravastati Sodium 40 Sodium 40 n Sodium MG MG 40 MG Pravastatin Pravastatin No Pravastati Sodium 40 Sodium 40 n Sodium MG MG 40 MG Amitiza 24 Amitiza 24 No BID Amitiza 24 MCG MCG MCG Ozempic (1 Ozempic (1 No Ozempic (1 MG/DOSE) 2 MG/DOSE) 2 MG/DOSE) 2 MG/1.5ML MG/1.5ML MG/1.5ML Amitiza 24 Amitiza 24 No Amitiza 24 MCG MCG MCG Clindamycin Clindamycin No Clindamyci HCl HCl n HCl Lubiproston Lubiproston No Lubiprosto e 24 MCG e 24 MCG ne 24 MCG Aspir-Low Aspir-Low No 1{table QD Aspir-Low 81 MG 81 MG t} 81 MG tramadol tramadol No tramadol Metformin Metformin No 1{table BID Metformin HCl 1000 MG HCl 1000 MG t_with_ HCl 1000 meals} MG Glimepiride Glimepiride No Glimepirid 1 MG 1 MG e 1 MG Losartan Losartan No Losartan Potassium Potassium Potassium 100 MG 100 MG 100 MG traMADol traMADol No 1{table traMADol HCl 50 MG HCl 50 MG t_as_ne HCl 50 MG eded} Losartan Losartan No 1{table QD Losartan Potassium Potassium t} Potassium 25 MG 25 MG 25 MG Docusate Docusate No 1{table BID Docusate Sodium 100 Sodium 100 t_as_ne Sodium 100 MG MG eded} MG Acetaminoph Acetaminoph No Acetaminop en-Codeine en-Codeine hen-Codein #3 #3 e #3 Glimepiride Glimepiride No 1{table BID Glimepirid 1 MG 1 MG t_with_ e [address]_or_t he_firs t_main_ meal_of _the_da y} Metformin Metformin No 1{table BID Metformin HCl 1000 MG HCl 1000 MG t_with_ HCl 1000 meals} MG Ozempic Ozempic No Ozempic 0.25 or 0.5 0.25 or 0.5 0.25 or MG/DOSE MG/DOSE 0.5 MG/DOSE Metformin Metformin No 1{table BID Metformin HCl 1000 MG HCl 1000 MG t_with_ HCl 1000 meals} MG Ozempic (1 Ozempic (1 No Ozempic (1 MG/DOSE) 2 MG/DOSE) 2 MG/DOSE) 2 MG/1.5ML MG/1.5ML MG/1.5ML Losartan Losartan No Losartan Potassium Potassium Potassium 25 MG 25 MG 25 MG Lubiproston Lubiproston No Lubiprosto e 24 MCG e 24 MCG ne 24 MCG Acetaminoph Acetaminoph No Acetaminop en-Codeine en-Codeine hen-Codein #3 #3 e #3 Metformin Metformin No 1{table BID Metformin HCl 1000 MG HCl 1000 MG t_with_ HCl 1000 meals} MG Ozempic (1 Ozempic (1 No Ozempic (1 MG/DOSE) 2 MG/DOSE) 2 MG/DOSE) 2 MG/1.5ML MG/1.5ML MG/1.5ML Pravastatin Pravastatin No Pravastati Sodium 40 Sodium 40 n Sodium MG MG 40 MG Amitiza 24 Amitiza 24 No Amitiza 24 MCG MCG MCG Clindamycin Clindamycin No Clindamyci HCl HCl n HCl Amitiza 24 Amitiza 24 No BID Amitiza 24 MCG MCG MCG Losartan Losartan No Losartan Potassium Potassium Potassium 100 MG 100 MG 100 MG Ozempic (1 Ozempic (1 No Ozempic (1 MG/DOSE) 2 MG/DOSE) 2 MG/DOSE) 2 MG/1.5ML MG/1.5ML MG/1.5ML Ozempic Ozempic No Ozempic 0.25 or 0.5 0.25 or 0.5 0.25 or MG/DOSE MG/DOSE 0.5 MG/DOSE Azopt 1 % Azopt 1 % No 1{drop_ TID Azopt 1 % into_af fected_ eye} Docusate Docusate No 1{table BID Docusate Sodium 100 Sodium 100 t_as_ne Sodium 100 MG MG eded} MG Aspir-Low Aspir-Low No 1{table QD Aspir-Low 81 MG 81 MG t} 81 MG Metformin Metformin No 1{table BID Metformin HCl 1000 MG HCl 1000 MG t_with_ HCl 1000 meals} MG Glimepiride Glimepiride No Glimepirid 1 MG 1 MG e 1 MG Lumigan Lumigan No 1{drop_ QD Lumigan 0.01 % 0.01 % into_af 0.01 % fected_ eye_in_ the_eve nathaly} Metformin Metformin No 1{table BID Metformin HCl 1000 MG HCl 1000 MG t_with_ HCl 1000 meals} MG traMADol traMADol No 1{table traMADol HCl 50 MG HCl 50 MG t_as_ne HCl 50 MG eded} Losartan Losartan No Losartan Potassium Potassium Potassium 25 MG 25 MG 25 MG tramadol tramadol No tramadol Combigan Combigan No 1{drop_ BID Combigan 0.2-0.5 % 0.2-0.5 % into_af 0.2-0.5 % fected_ eye} Pravastatin Pravastatin No Pravastati Sodium 40 Sodium 40 n Sodium MG MG 40 MG Glimepiride Glimepiride No 1{table BID Glimepirid 1 MG 1 MG t_with_ e [address]_or_t he_firs t_main_ meal_of _the_da y} Azopt 1 % Azopt 1 % No 1{drop_ TID Azopt 1 % into_af fected_ eye} Losartan Losartan No Losartan Potassium Potassium Potassium 25 MG 25 MG 25 MG Combigan Combigan No 1{drop_ BID Combigan 0.2-0.5 % 0.2-0.5 % into_af 0.2-0.5 % fected_ eye} Pravastatin Pravastatin No Pravastati Sodium 40 Sodium 40 n Sodium MG MG 40 MG Amitiza 24 Amitiza 24 No BID Amitiza 24 MCG MCG MCG Lumigan Lumigan No 1{drop_ QD Lumigan 0.01 % 0.01 % into_af 0.01 % fected_ eye_in_ the_eve nathaly} Pravastatin Pravastatin No Pravastati Sodium 40 Sodium 40 n Sodium MG MG 40 MG Clindamycin Clindamycin No Clindamyci HCl HCl n HCl Lubiproston Lubiproston No Lubiprosto e 24 MCG e 24 MCG ne 24 MCG Aspir-Low Aspir-Low No 1{table QD Aspir-Low 81 MG 81 MG t} 81 MG tramadol tramadol No tramadol traMADol traMADol No 1{table traMADol HCl 50 MG HCl 50 MG t_as_ne HCl 50 MG eded} Glimepiride Glimepiride No Glimepirid 1 MG 1 MG e 1 MG Losartan Losartan No Losartan Potassium Potassium Potassium 100 MG 100 MG 100 MG Amitiza 24 Amitiza 24 No Amitiza 24 MCG MCG MCG Metformin Metformin No 1{table BID Metformin HCl 1000 MG HCl 1000 MG t_with_ HCl 1000 meals} MG Docusate Docusate No 1{table BID Docusate Sodium 100 Sodium 100 t_as_ne Sodium 100 MG MG eded} MG Acetaminoph Acetaminoph No Acetaminop en-Codeine en-Codeine hen-Codein #3 #3 e #3 Glimepiride Glimepiride No 1{table BID Glimepirid 1 MG 1 MG t_with_ e [address]_or_t he_firs t_main_ meal_of _the_da y} Metformin Metformin No 1{table BID Metformin HCl 1000 MG HCl 1000 MG t_with_ HCl 1000 meals} MG Ozempic Ozempic No Ozempic 0.25 or 0.5 0.25 or 0.5 0.25 or MG/DOSE MG/DOSE 0.5 MG/DOSE Metformin Metformin No 1{table BID Metformin HCl 1000 MG HCl 1000 MG t_with_ HCl 1000 meals} MG Ozempic (1 Ozempic (1 No Ozempic (1 MG/DOSE) 2 MG/DOSE) 2 MG/DOSE) 2 MG/1.5ML MG/1.5ML MG/1.5ML Ozempic (1 Ozempic (1 No Ozempic (1 MG/DOSE) 2 MG/DOSE) 2 MG/DOSE) 2 MG/1.5ML MG/1.5ML MG/1.5ML Azopt 1 % Azopt 1 % No 1{drop_ TID Azopt 1 % into_af fected_ eye} Losartan Losartan No Losartan Potassium Potassium Potassium 25 MG 25 MG 25 MG Combigan Combigan No 1{drop_ BID Combigan 0.2-0.5 % 0.2-0.5 % into_af 0.2-0.5 % fected_ eye} Pravastatin Pravastatin No Pravastati Sodium 40 Sodium 40 n Sodium MG MG 40 MG Amitiza 24 Amitiza 24 No BID Amitiza 24 MCG MCG MCG Lumigan Lumigan No 1{drop_ QD Lumigan 0.01 % 0.01 % into_af 0.01 % fected_ eye_in_ the_erika castillog} Pravastatin Pravastatin No Pravastati Sodium 40 Sodium 40 n Sodium MG MG 40 MG Clindamycin Clindamycin No Clindamyci HCl HCl n HCl Lubiproston Lubiproston No Lubiprosto e 24 MCG e 24 MCG ne 24 MCG Aspir-Low Aspir-Low No 1{table QD Aspir-Low 81 MG 81 MG t} 81 MG tramadol tramadol No tramadol traMADol traMADol No 1{table traMADol HCl 50 MG HCl 50 MG t_as_ne HCl 50 MG eded} Glimepiride Glimepiride No Glimepirid 1 MG 1 MG e 1 MG Losartan Losartan No Losartan Potassium Potassium Potassium 100 MG 100 MG 100 MG Amitiza 24 Amitiza 24 No Amitiza 24 MCG MCG MCG Metformin Metformin No 1{table BID Metformin HCl 1000 MG HCl 1000 MG t_with_ HCl 1000 meals} MG Docusate Docusate No 1{table BID Docusate Sodium 100 Sodium 100 t_as_ne Sodium 100 MG MG eded} MG Acetaminoph Acetaminoph No Acetaminop en-Codeine en-Codeine hen-Codein #3 #3 e #3 Glimepiride Glimepiride No 1{table BID Glimepirid 1 MG 1 MG t_with_ e [address]_or_t he_firs t_main_ meal_of _the_da y} Metformin Metformin No 1{table BID Metformin HCl 1000 MG HCl 1000 MG t_with_ HCl 1000 meals} MG Ozempic Ozempic No Ozempic 0.25 or 0.5 0.25 or 0.5 0.25 or MG/DOSE MG/DOSE 0.5 MG/DOSE Metformin Metformin No 1{table BID Metformin HCl 1000 MG HCl 1000 MG t_with_ HCl 1000 meals} MG Ozempic (1 Ozempic (1 No Ozempic (1 MG/DOSE) 2 MG/DOSE) 2 MG/DOSE) 2 MG/1.5ML MG/1.5ML MG/1.5ML Ozempic (1 Ozempic (1 No Ozempic (1 MG/DOSE) 2 MG/DOSE) 2 MG/DOSE) 2 MG/1.5ML MG/1.5ML MG/1.5ML Azopt 1 % Azopt 1 % No 1{drop_ TID Azopt 1 % into_af fected_ eye} Losartan Losartan No Losartan Potassium Potassium Potassium 25 MG 25 MG 25 MG Combigan Combigan No 1{drop_ BID Combigan 0.2-0.5 % 0.2-0.5 % into_af 0.2-0.5 % fected_ eye} Pravastatin Pravastatin No Pravastati Sodium 40 Sodium 40 n Sodium MG MG 40 MG Amitiza 24 Amitiza 24 No BID Amitiza 24 MCG MCG MCG Lumigan Lumigan No 1{drop_ QD Lumigan 0.01 % 0.01 % into_af 0.01 % fected_ eye_in_ the_eve nathaly} Pravastatin Pravastatin No Pravastati Sodium 40 Sodium 40 n Sodium MG MG 40 MG Losartan Losartan No Losartan Potassium Potassium Potassium 100 MG 100 MG 100 MG Clindamycin Clindamycin No Clindamyci HCl HCl n HCl Docusate Docusate No 1{table BID Docusate Sodium 100 Sodium 100 t_as_ne Sodium 100 MG MG eded} MG Acetaminoph Acetaminoph No Acetaminop en-Codeine en-Codeine hen-Codein #3 #3 e #3 traMADol traMADol No 1{table traMADol HCl 50 MG HCl 50 MG t_as_ne HCl 50 MG eded} Glimepiride Glimepiride No 1{table BID Glimepirid 1 MG 1 MG t_with_ e [address]_or_t he_firs t_main_ meal_of _the_da y} tramadol tramadol No tramadol Amitiza 24 Amitiza 24 No Amitiza 24 MCG MCG MCG Metformin Metformin No 1{table BID Metformin HCl 1000 MG HCl 1000 MG t_with_ HCl 1000 meals} MG Glimepiride Glimepiride No Glimepirid 1 MG 1 MG e 1 MG Lubiproston Lubiproston No Lubiprosto e 24 MCG e 24 MCG ne 24 MCG Aspir-Low Aspir-Low No 1{table QD Aspir-Low 81 MG 81 MG t} 81 MG Metformin Metformin No 1{table BID Metformin HCl 1000 MG HCl 1000 MG t_with_ HCl 1000 meals} MG Metformin Metformin No 1{table BID Metformin HCl 1000 MG HCl 1000 MG t_with_ HCl 1000 meals} MG Ozempic Ozempic No Ozempic 0.25 or 0.5 0.25 or 0.5 0.25 or MG/DOSE MG/DOSE 0.5 MG/DOSE Ozempic (1 Ozempic (1 No Ozempic (1 MG/DOSE) 2 MG/DOSE) 2 MG/DOSE) 2 MG/1.5ML MG/1.5ML MG/1.5ML Azopt 1 % Azopt 1 % No 1{drop_ TID Azopt 1 % into_af fected_ eye} Pravastatin Pravastatin No Pravastati Sodium 40 Sodium 40 n Sodium MG MG 40 MG Combigan Combigan No 1{drop_ BID Combigan 0.2-0.5 % 0.2-0.5 % into_af 0.2-0.5 % fected_ eye} Losartan Losartan No Losartan Potassium Potassium Potassium 25 MG 25 MG 25 MG Amitiza 24 Amitiza 24 No BID Amitiza 24 MCG MCG MCG Lumigan Lumigan No 1{drop_ QD Lumigan 0.01 % 0.01 % into_af 0.01 % fected_ eye_in_ the[place]} Pravastatin Pravastatin No Pravastati Sodium 40 Sodium 40 n Sodium MG MG 40 MG Losartan Losartan No Losartan Potassium Potassium Potassium 100 MG 100 MG 100 MG Clindamycin Clindamycin No Clindamyci HCl HCl n HCl Docusate Docusate No 1{table BID Docusate Sodium 100 Sodium 100 t_as_ne Sodium 100 MG MG eded} MG Acetaminoph Acetaminoph No Acetaminop en-Codeine en-Codeine hen-Codein #3 #3 e #3 traMADol traMADol No 1{table traMADol HCl 50 MG HCl 50 MG t_as_ne HCl 50 MG eded} Glimepiride Glimepiride No 1{table BID Glimepirid 1 MG 1 MG t_with_ e [address]_or_t he_firs t_main_ meal_of _the_da y} tramadol tramadol No tramadol Amitiza 24 Amitiza 24 No Amitiza 24 MCG MCG MCG Metformin Metformin No 1{table BID Metformin HCl 1000 MG HCl 1000 MG t_with_ HCl 1000 meals} MG Glimepiride Glimepiride No Glimepirid 1 MG 1 MG e 1 MG Lubiproston Lubiproston No Lubiprosto e 24 MCG e 24 MCG ne 24 MCG Aspir-Low Aspir-Low No 1{table QD Aspir-Low 81 MG 81 MG t} 81 MG Metformin Metformin No 1{table BID Metformin HCl 1000 MG HCl 1000 MG t_with_ HCl 1000 meals} MG Metformin Metformin No 1{table BID Metformin HCl 1000 MG HCl 1000 MG t_with_ HCl 1000 meals} MG Ozempic Ozempic No Ozempic 0.25 or 0.5 0.25 or 0.5 0.25 or MG/DOSE MG/DOSE 0.5 MG/DOSE Ozempic (1 Ozempic (1 No Ozempic (1 MG/DOSE) 2 MG/DOSE) 2 MG/DOSE) 2 MG/1.5ML MG/1.5ML MG/1.5ML Amitiza 24 Amitiza 24 No BID Amitiza 24 MCG MCG MCG Combigan Combigan No 1{drop_ BID Combigan 0.2-0.5 % 0.2-0.5 % into_af 0.2-0.5 % fected_ eye} Acetaminoph Acetaminoph No Acetaminop en-Codeine en-Codeine hen-Codein #3 #3 e #3 Clindamycin Clindamycin No Clindamyci HCl HCl n HCl Ozempic (1 Ozempic (1 No Ozempic (1 MG/DOSE) 2 MG/DOSE) 2 MG/DOSE) 2 MG/1.5ML MG/1.5ML MG/1.5ML Docusate Docusate No 1{table BID Docusate Sodium 100 Sodium 100 t_as_ne Sodium 100 MG MG eded} MG Pravastatin Pravastatin No Pravastati Sodium 40 Sodium 40 n Sodium MG MG 40 MG traMADol traMADol No 1{table traMADol HCl 50 MG HCl 50 MG t_as_ne HCl 50 MG eded} Amitiza 24 Amitiza 24 No Amitiza 24 MCG MCG MCG Metformin Metformin No 1{table BID Metformin HCl 1000 MG HCl 1000 MG t_with_ HCl 1000 meals} MG Glimepiride Glimepiride No 1{table BID Glimepirid 1 MG 1 MG t_with_ e [address]_or_t he_firs t_main_ meal_of _the_da y} Lumigan Lumigan No 1{drop_ QD Lumigan 0.01 % 0.01 % into_af 0.01 % fected_ eye_in_ the[place]} Aspir-Low Aspir-Low No 1{table QD Aspir-Low 81 MG 81 MG t} 81 MG tramadol tramadol No tramadol Metformin Metformin No 1{table BID Metformin HCl 1000 MG HCl 1000 MG t_with_ HCl 1000 meals} MG Losartan Losartan No Losartan Potassium Potassium Potassium 100 MG 100 MG 100 MG Azopt 1 % Azopt 1 % No 1{drop_ TID Azopt 1 % into_af fected_ eye} Ozempic Ozempic No Ozempic 0.25 or 0.5 0.25 or 0.5 0.25 or MG/DOSE MG/DOSE 0.5 MG/DOSE Pravastatin Pravastatin No Pravastati Sodium 40 Sodium 40 n Sodium MG MG 40 MG Lubiproston Lubiproston No Lubiprosto e 24 MCG e 24 MCG ne 24 MCG Metformin Metformin No 1{table BID Metformin HCl 1000 MG HCl 1000 MG t_with_ HCl 1000 meals} MG Glimepiride Glimepiride No Glimepirid 1 MG 1 MG e 1 MG Glimepiride Glimepiride No Glimepirid 1 MG 1 MG e 1 MG Metformin Metformin No 1{table BID Metformin HCl 1000 MG HCl 1000 MG t_with_ HCl 1000 meals} MG Ozempic Ozempic No Ozempic 0.25 or 0.5 0.25 or 0.5 0.25 or MG/DOSE MG/DOSE 0.5 MG/DOSE Metformin Metformin No 1{table BID Metformin HCl 1000 MG HCl 1000 MG t_with_ HCl 1000 meals} MG traMADol traMADol No 1{table traMADol HCl 50 MG HCl 50 MG t_as_ne HCl 50 MG eded} Amitiza 24 Amitiza 24 No Amitiza 24 MCG MCG MCG Docusate Docusate No 1{table BID Docusate Sodium 100 Sodium 100 t_as_ne Sodium 100 MG MG eded} MG Losartan Losartan No Losartan Potassium Potassium Potassium 100 MG 100 MG 100 MG Clindamycin Clindamycin No Clindamyci HCl HCl n HCl Lumigan Lumigan No 1{drop_ QD Lumigan 0.01 % 0.01 % into_af 0.01 % fected_ eye_in_ the[place]} Acetaminoph Acetaminoph No Acetaminop en-Codeine en-Codeine hen-Codein #3 #3 e #3 Lubiproston Lubiproston No Lubiprosto e 24 MCG e 24 MCG ne 24 MCG Ozempic (1 Ozempic (1 No Ozempic (1 MG/DOSE) 2 MG/DOSE) 2 MG/DOSE) 2 MG/1.5ML MG/1.5ML MG/1.5ML tramadol tramadol No tramadol Pravastatin Pravastatin No 1{table QD Pravastati Sodium 40 Sodium 40 t} n Sodium MG MG 40 MG Pravastatin Pravastatin No Pravastati Sodium 40 Sodium 40 n Sodium MG MG 40 MG Azopt 1 % Azopt 1 % No 1{drop_ TID Azopt 1 % into_af fected_ eye} Ozempic (1 Ozempic (1 No Ozempic (1 MG/DOSE) 2 MG/DOSE) 2 MG/DOSE) 2 MG/1.5ML MG/1.5ML MG/1.5ML Losartan Losartan No 1{table QD Losartan Potassium Potassium t} Potassium 25 MG 25 MG 25 MG Amitiza 24 Amitiza 24 No BID Amitiza 24 MCG MCG MCG Metformin Metformin No 1{table BID Metformin HCl 1000 MG HCl 1000 MG t_with_ HCl 1000 meals} MG Combigan Combigan No 1{drop_ BID Combigan 0.2-0.5 % 0.2-0.5 % into_af 0.2-0.5 % fected_ eye} Aspir-Low Aspir-Low No 1{table QD Aspir-Low 81 MG 81 MG t} 81 MG Glimepiride Glimepiride No 1{table BID Glimepirid 1 MG 1 MG t_with_ e [address]_or_t he_firs t_main_ meal_of _the_da y} Glimepiride Glimepiride No Glimepirid 1 MG 1 MG e 1 MG Metformin Metformin No 1{table BID Metformin HCl 1000 MG HCl 1000 MG t_with_ HCl 1000 meals} MG Ozempic Ozempic No Ozempic 0.25 or 0.5 0.25 or 0.5 0.25 or MG/DOSE MG/DOSE 0.5 MG/DOSE Metformin Metformin No 1{table BID Metformin HCl 1000 MG HCl 1000 MG t_with_ HCl 1000 meals} MG traMADol traMADol No 1{table traMADol HCl 50 MG HCl 50 MG t_as_ne HCl 50 MG eded} Amitiza 24 Amitiza 24 No Amitiza 24 MCG MCG MCG Docusate Docusate No 1{table BID Docusate Sodium 100 Sodium 100 t_as_ne Sodium 100 MG MG eded} MG Losartan Losartan No Losartan Potassium Potassium Potassium 100 MG 100 MG 100 MG Clindamycin Clindamycin No Clindamyci HCl HCl n HCl Lumigan Lumigan No 1{drop_ QD Lumigan 0.01 % 0.01 % into_af 0.01 % fected_ eye_in_ the[place]} Acetaminoph Acetaminoph No Acetaminop en-Codeine en-Codeine hen-Codein #3 #3 e #3 Lubiproston Lubiproston No Lubiprosto e 24 MCG e 24 MCG ne 24 MCG Ozempic (1 Ozempic (1 No Ozempic (1 MG/DOSE) 2 MG/DOSE) 2 MG/DOSE) 2 MG/1.5ML MG/1.5ML MG/1.5ML tramadol tramadol No tramadol Pravastatin Pravastatin No 1{table QD Pravastati Sodium 40 Sodium 40 t} n Sodium MG MG 40 MG Pravastatin Pravastatin No Pravastati Sodium 40 Sodium 40 n Sodium MG MG 40 MG Azopt 1 % Azopt 1 % No 1{drop_ TID Azopt 1 % into_af fected_ eye} Ozempic (1 Ozempic (1 No Ozempic (1 MG/DOSE) 2 MG/DOSE) 2 MG/DOSE) 2 MG/1.5ML MG/1.5ML MG/1.5ML Losartan Losartan No 1{table QD Losartan Potassium Potassium t} Potassium 25 MG 25 MG 25 MG Amitiza 24 Amitiza 24 No BID Amitiza 24 MCG MCG MCG Metformin Metformin No 1{table BID Metformin HCl 1000 MG HCl 1000 MG t_with_ HCl 1000 meals} MG Combigan Combigan No 1{drop_ BID Combigan 0.2-0.5 % 0.2-0.5 % into_af 0.2-0.5 % fected_ eye} Aspir-Low Aspir-Low No 1{table QD Aspir-Low 81 MG 81 MG t} 81 MG Glimepiride Glimepiride No 1{table BID Glimepirid 1 MG 1 MG t_with_ e [address]_or_t he_firs t_main_ meal_of _the_da y} Glimepiride Glimepiride No Glimepirid 1 MG 1 MG e 1 MG Metformin Metformin No 1{table BID Metformin HCl 1000 MG HCl 1000 MG t_with_ HCl 1000 meals} MG Ozempic Ozempic No Ozempic 0.25 or 0.5 0.25 or 0.5 0.25 or MG/DOSE MG/DOSE 0.5 MG/DOSE Metformin Metformin No 1{table BID Metformin HCl 1000 MG HCl 1000 MG t_with_ HCl 1000 meals} MG traMADol traMADol No 1{table traMADol HCl 50 MG HCl 50 MG t_as_ne HCl 50 MG eded} Amitiza 24 Amitiza 24 No Amitiza 24 MCG MCG MCG Docusate Docusate No 1{table BID Docusate Sodium 100 Sodium 100 t_as_ne Sodium 100 MG MG eded} MG Losartan Losartan No Losartan Potassium Potassium Potassium 100 MG 100 MG 100 MG Clindamycin Clindamycin No Clindamyci HCl HCl n HCl Lumigan Lumigan No 1{drop_ QD Lumigan 0.01 % 0.01 % into_af 0.01 % fected_ eye_in_ the[place]} Acetaminoph Acetaminoph No Acetaminop en-Codeine en-Codeine hen-Codein #3 #3 e #3 Lubiproston Lubiproston No Lubiprosto e 24 MCG e 24 MCG ne 24 MCG Ozempic (1 Ozempic (1 No Ozempic (1 MG/DOSE) 2 MG/DOSE) 2 MG/DOSE) 2 MG/1.5ML MG/1.5ML MG/1.5ML tramadol tramadol No tramadol Pravastatin Pravastatin No 1{table QD Pravastati Sodium 40 Sodium 40 t} n Sodium MG MG 40 MG Pravastatin Pravastatin No Pravastati Sodium 40 Sodium 40 n Sodium MG MG 40 MG Azopt 1 % Azopt 1 % No 1{drop_ TID Azopt 1 % into_af fected_ eye} Ozempic (1 Ozempic (1 No Ozempic (1 MG/DOSE) 2 MG/DOSE) 2 MG/DOSE) 2 MG/1.5ML MG/1.5ML MG/1.5ML Losartan Losartan No 1{table QD Losartan Potassium Potassium t} Potassium 25 MG 25 MG 25 MG Amitiza 24 Amitiza 24 No BID Amitiza 24 MCG MCG MCG Metformin Metformin No 1{table BID Metformin HCl 1000 MG HCl 1000 MG t_with_ HCl 1000 meals} MG Combigan Combigan No 1{drop_ BID Combigan 0.2-0.5 % 0.2-0.5 % into_af 0.2-0.5 % fected_ eye} Aspir-Low Aspir-Low No 1{table QD Aspir-Low 81 MG 81 MG t} 81 MG Glimepiride Glimepiride No 1{table BID Glimepirid 1 MG 1 MG t_with_ e [address]_or_t he_firs t_main_ meal_of _the_da y} Losartan Losartan No Losartan Potassium Potassium Potassium 25 MG 25 MG 25 MG Lumigan Lumigan No 1{drop_ QD Lumigan 0.01 % 0.01 % into_af 0.01 % fected_ eye_in_ the[place]} Losartan Losartan No 1{table QD Losartan Potassium Potassium t} Potassium 25 MG 25 MG 25 MG Pravastatin Pravastatin No 1{table QD Pravastati Sodium 40 Sodium 40 t} n Sodium MG MG 40 MG Docusate Docusate No 1{table BID Docusate Sodium 100 Sodium 100 t_as_ne Sodium 100 MG MG eded} MG Combigan Combigan No 1{drop_ BID Combigan 0.2-0.5 % 0.2-0.5 % into_af 0.2-0.5 % fected_ eye} Azopt 1 % Azopt 1 % No 1{drop_ TID Azopt 1 % into_af fected_ eye} traMADol traMADol No 1{table traMADol HCl 50 MG HCl 50 MG t_as_ne HCl 50 MG eded} Aspir-Low Aspir-Low No 1{table QD Aspir-Low 81 MG 81 MG t} 81 MG Lubiproston Lubiproston No Lubiprosto e 24 MCG e 24 MCG ne 24 MCG Amitiza 24 Amitiza 24 No BID Amitiza 24 MCG MCG MCG Glimepiride Glimepiride No 1{table BID Glimepirid 1 MG 1 MG t_with_ e [address]_or_t he_firs t_main_ meal_of _the_da y} Ozempic (1 Ozempic (1 No Ozempic (1 MG/DOSE) 2 MG/DOSE) 2 MG/DOSE) 2 MG/1.5ML MG/1.5ML MG/1.5ML Metformin Metformin No 1{table BID Metformin HCl 1000 MG HCl 1000 MG t_with_ HCl 1000 meals} MG Amitiza 24 Amitiza 24 No BID Amitiza 24 MCG MCG MCG Combigan Combigan No 1{drop_ BID Combigan 0.2-0.5 % 0.2-0.5 % into_af 0.2-0.5 % fected_ eye} Docusate Docusate No 1{table BID Docusate Sodium 100 Sodium 100 t_as_ne Sodium 100 MG MG eded} MG Lubiproston Lubiproston No Lubiprosto e 24 MCG e 24 MCG ne 24 MCG Losartan Losartan No Losartan Potassium Potassium Potassium 25 MG 25 MG 25 MG traMADol traMADol No 1{table traMADol HCl 50 MG HCl 50 MG t_as_ne HCl 50 MG eded} Lumigan Lumigan No 1{drop_ QD Lumigan 0.01 % 0.01 % into_af 0.01 % fected_ eye_in_ the_[place]} Ozempic (1 Ozempic (1 No Ozempic (1 MG/DOSE) 2 MG/DOSE) 2 MG/DOSE) 2 MG/1.5ML MG/1.5ML MG/1.5ML Pravastatin Pravastatin No 1{table QD Pravastati Sodium 40 Sodium 40 t} n Sodium MG MG 40 MG Aspir-Low Aspir-Low No 1{table QD Aspir-Low 81 MG 81 MG t} 81 MG Glimepiride Glimepiride No 1{table BID Glimepirid 1 MG 1 MG t_with_ e [address]_or_t he_firs t_main_ meal_of _the_da y} Azopt 1 % Azopt 1 % No 1{drop_ TID Azopt 1 % into_af fected_ eye} Lisinopril- Lisinopril- No Lisinopril hydroCHLORO hydroCHLORO -hydroCHLO thiazide thiazide ROthiazide 10-12.5 MG 10-12.5 MG 10-12.5 MG Losartan Losartan No 1{table QD Losartan Potassium Potassium t} Potassium 25 MG 25 MG 25 MG Metformin Metformin No 1{table BID Metformin HCl 1000 MG HCl 1000 MG t_with_ HCl 1000 meals} MG Amitiza 24 Amitiza 24 No BID Amitiza 24 MCG MCG MCG Combigan Combigan No 1{drop_ BID Combigan 0.2-0.5 % 0.2-0.5 % into_af 0.2-0.5 % fected_ eye} Docusate Docusate No 1{table BID Docusate Sodium 100 Sodium 100 t_as_ne Sodium 100 MG MG eded} MG Lubiproston Lubiproston No Lubiprosto e 24 MCG e 24 MCG ne 24 MCG Losartan Losartan No Losartan Potassium Potassium Potassium 25 MG 25 MG 25 MG traMADol traMADol No 1{table traMADol HCl 50 MG HCl 50 MG t_as_ne HCl 50 MG eded} Ozempic (1 Ozempic (1 No Ozempic (1 MG/DOSE) 2 MG/DOSE) 2 MG/DOSE) 2 MG/1.5ML MG/1.5ML MG/1.5ML Metformin Metformin No Metformin HCl 1000 MG HCl 1000 MG HCl 1000 MG Pravastatin Pravastatin No 1{table QD Pravastati Sodium 40 Sodium 40 t} n Sodium MG MG 40 MG Azopt 1 % Azopt 1 % No 1{drop_ TID Azopt 1 % into_af fected_ eye} Glimepiride Glimepiride No 1{table BID Glimepirid 1 MG 1 MG t_with_ e [address]_or_t he_firs t_main_ meal_of _theda y} Lumigan Lumigan No 1{drop_ QD Lumigan 0.01 % 0.01 % into_af 0.01 % fected_ eye_in_ the_[place]} Lisinopril- Lisinopril- No Lisinopril hydroCHLORO hydroCHLORO -hydroCHLO thiazide thiazide ROthiazide 10-12.5 MG 10-12.5 MG 10-12.5 MG Losartan Losartan No 1{table QD Losartan Potassium Potassium t} Potassium 25 MG 25 MG 25 MG Aspir-Low Aspir-Low No 1{table QD Aspir-Low 81 MG 81 MG t} 81 MG Glimepiride Glimepiride No 1{table BID Glimepirid 1 MG 1 MG t_with_ e [address]_or_t he_firs t_main_ meal_of _the} Metformin Metformin No Metformin HCl 1000 MG HCl 1000 MG HCl 1000 MG Ozempic (1 Ozempic (1 No Ozempic (1 MG/DOSE) 2 MG/DOSE) 2 MG/DOSE) 2 MG/1.5ML MG/1.5ML MG/1.5ML Pravastatin Pravastatin No 1{table QD Pravastati Sodium 40 Sodium 40 t} n Sodium MG MG 40 MG Lumigan Lumigan No 1{drop_ QD Lumigan 0.01 % 0.01 % into_af 0.01 % fected_ eye_in_ the_[place]} Docusate Docusate No 1{table BID Docusate Sodium 100 Sodium 100 t_as_ne Sodium 100 MG MG eded} MG Aspir-Low Aspir-Low No 1{table QD Aspir-Low 81 MG 81 MG t} 81 MG Azopt 1 % Azopt 1 % No 1{drop_ TID Azopt 1 % into_af fected_ eye} Losartan Losartan No 1{table QD Losartan Potassium Potassium t} Potassium 25 MG 25 MG 25 MG Amitiza 24 Amitiza 24 No BID Amitiza 24 MCG MCG MCG Combigan Combigan No 1{drop_ BID Combigan 0.2-0.5 % 0.2-0.5 % into_af 0.2-0.5 % fected_ eye} Lisinopril- Lisinopril- No Lisinopril hydroCHLORO hydroCHLORO -hydroCHLO thiazide thiazide ROthiazide 10-12.5 MG 10-12.5 MG 10-12.5 MG traMADol traMADol No 1{table traMADol HCl 50 MG HCl 50 MG t_as_ne HCl 50 MG eded} Lubiproston Lubiproston No Lubiprosto e 24 MCG e 24 MCG ne 24 MCG Ozempic (1 Ozempic (1 No Ozempic (1 MG/DOSE) 2 MG/DOSE) 2 MG/DOSE) 2 MG/1.5ML MG/1.5ML MG/1.5ML Losartan Losartan No 1{table QD Losartan Potassium Potassium t} Potassium 25 MG 25 MG 25 MG Pravastatin Pravastatin No 1{table QD Pravastati Sodium 40 Sodium 40 t} n Sodium MG MG 40 MG Aspir-Low Aspir-Low No 1{table QD Aspir-Low 81 MG 81 MG t} 81 MG traMADol traMADol No 1{table traMADol HCl 50 MG HCl 50 MG t_as_ne HCl 50 MG eded} Azopt 1 % Azopt 1 % No 1{drop_ TID Azopt 1 % into_af fected_ eye} Amitiza 24 Amitiza 24 No BID Amitiza 24 MCG MCG MCG Lumigan Lumigan No 1{drop_ QD Lumigan 0.01 % 0.01 % into_af 0.01 % fected_ eye_in_ the_[place]} Metformin Metformin No 1{table BID Metformin HCl 1000 MG HCl 1000 MG t_with_ HCl 1000 meals} MG Losartan Losartan No 1{table QD Losartan Potassium Potassium t} Potassium 25 MG 25 MG 25 MG Metformin Metformin No Metformin HCl 1000 MG HCl 1000 MG HCl 1000 MG Docusate Docusate No 1{table BID Docusate Sodium 100 Sodium 100 t_as_ne Sodium 100 MG MG eded} MG Lubiproston Lubiproston No Lubiprosto e 24 MCG e 24 MCG ne 24 MCG Combigan Combigan No 1{drop_ BID Combigan 0.2-0.5 % 0.2-0.5 % into_af 0.2-0.5 % fected_ eye} Glimepiride Glimepiride No 1{table BID Glimepirid 1 MG 1 MG t_with_ e [address]_or_t he_firs t_main_ meal_of _the_da y} Lisinopril- Lisinopril- No Lisinopril hydroCHLORO hydroCHLORO -hydroCHLO thiazide thiazide ROthiazide 10-12.5 MG 10-12.5 MG 10-12.5 MG Ozempic (1 Ozempic (1 No Ozempic (1 MG/DOSE) 2 MG/DOSE) 2 MG/DOSE) 2 MG/1.5ML MG/1.5ML MG/1.5ML Losartan Losartan No 1{table QD Losartan Potassium Potassium t} Potassium 25 MG 25 MG 25 MG Pravastatin Pravastatin No 1{table QD Pravastati Sodium 40 Sodium 40 t} n Sodium MG MG 40 MG Aspir-Low Aspir-Low No 1{table QD Aspir-Low 81 MG 81 MG t} 81 MG traMADol traMADol No 1{table traMADol HCl 50 MG HCl 50 MG t_as_ne HCl 50 MG eded} Azopt 1 % Azopt 1 % No 1{drop_ TID Azopt 1 % into_af fected_ eye} Amitiza 24 Amitiza 24 No BID Amitiza 24 MCG MCG MCG Lumigan Lumigan No 1{drop_ QD Lumigan 0.01 % 0.01 % into_af 0.01 % fected_ eye_in_ the_[place]} Metformin Metformin No 1{table BID Metformin HCl 1000 MG HCl 1000 MG t_with_ HCl 1000 meals} MG Losartan Losartan No 1{table QD Losartan Potassium Potassium t} Potassium 25 MG 25 MG 25 MG Metformin Metformin No Metformin HCl 1000 MG HCl 1000 MG HCl 1000 MG Docusate Docusate No 1{table BID Docusate Sodium 100 Sodium 100 t_as_ne Sodium 100 MG MG eded} MG Lubiproston Lubiproston No Lubiprosto e 24 MCG e 24 MCG ne 24 MCG Combigan Combigan No 1{drop_ BID Combigan 0.2-0.5 % 0.2-0.5 % into_af 0.2-0.5 % fected_ eye} Glimepiride Glimepiride No 1{table BID Glimepirid 1 MG 1 MG t_with_ e [address]_or_t he_firs t_main_ meal_of _the_da y} Lisinopril- Lisinopril- No Lisinopril hydroCHLORO hydroCHLORO -hydroCHLO thiazide thiazide ROthiazide 10-12.5 MG 10-12.5 MG 10-12.5 MG Ozempic (1 Ozempic (1 No Ozempic (1 MG/DOSE) 2 MG/DOSE) 2 MG/DOSE) 2 MG/1.5ML MG/1.5ML MG/1.5ML Losartan Losartan No 1{table QD Losartan Potassium Potassium t} Potassium 25 MG 25 MG 25 MG Pravastatin Pravastatin No 1{table QD Pravastati Sodium 40 Sodium 40 t} n Sodium MG MG 40 MG Aspir-Low Aspir-Low No 1{table QD Aspir-Low 81 MG 81 MG t} 81 MG traMADol traMADol No 1{table traMADol HCl 50 MG HCl 50 MG t_as_ne HCl 50 MG eded} Azopt 1 % Azopt 1 % No 1{drop_ TID Azopt 1 % into_af fected_ eye} Amitiza 24 Amitiza 24 No BID Amitiza 24 MCG MCG MCG Lumigan Lumigan No 1{drop_ QD Lumigan 0.01 % 0.01 % into_af 0.01 % fected_ eye_in_ the_[place]} Metformin Metformin No 1{table BID Metformin HCl 1000 MG HCl 1000 MG t_with_ HCl 1000 meals} MG Losartan Losartan No 1{table QD Losartan Potassium Potassium t} Potassium 25 MG 25 MG 25 MG Metformin Metformin No Metformin HCl 1000 MG HCl 1000 MG HCl 1000 MG Docusate Docusate No 1{table BID Docusate Sodium 100 Sodium 100 t_as_ne Sodium 100 MG MG eded} MG Lubiproston Lubiproston No Lubiprosto e 24 MCG e 24 MCG ne 24 MCG Combigan Combigan No 1{drop_ BID Combigan 0.2-0.5 % 0.2-0.5 % into_af 0.2-0.5 % fected_ eye} Glimepiride Glimepiride No 1{table BID Glimepirid 1 MG 1 MG t_with_ e [address]_or_t he_firs t_main_ meal_of _the_da y} Lisinopril- Lisinopril- No Lisinopril hydroCHLORO hydroCHLORO -hydroCHLO thiazide thiazide ROthiazide 10-12.5 MG 10-12.5 MG 10-12.5 MG Amitiza 24 Amitiza 24 No BID Amitiza 24 MCG MCG MCG Triamcinolo Triamcinolo No Triamcinol ne ne one Acetonide Acetonide Acetonide 0.1 % 0.1 % 0.1 % Losartan Losartan No 1{table QD Losartan Potassium Potassium t} Potassium 25 MG 25 MG 25 MG Glimepiride Glimepiride No Glimepirid 1 MG 1 MG e 1 MG Combigan Combigan No 1{drop_ BID Combigan 0.2-0.5 % 0.2-0.5 % into_af 0.2-0.5 % fected_ eye} Metformin Metformin No 1{table BID Metformin HCl 1000 MG HCl 1000 MG t_with_ HCl 1000 meals} MG Azopt 1 % Azopt 1 % No 1{drop_ TID Azopt 1 % into_af fected_ eye} Lisinopril- Lisinopril- No Lisinopril hydroCHLORO hydroCHLORO -hydroCHLO thiazide thiazide ROthiazide 10-12.5 MG 10-12.5 MG 10-12.5 MG Losartan Losartan No 1{table QD Losartan Potassium Potassium t} Potassium 25 MG 25 MG 25 MG Glimepiride Glimepiride No BID Glimepirid 2 MG 2 MG e 2 MG Lumigan Lumigan No 1{drop_ QD Lumigan 0.01 % 0.01 % into_af 0.01 % fected_ eye_in_ the_[facility]} Metformin Metformin No Metformin HCl 1000 MG HCl 1000 MG HCl 1000 MG Aspir-Low Aspir-Low No 1{table QD Aspir-Low 81 MG 81 MG t} 81 MG Docusate Docusate No 1{table BID Docusate Sodium 100 Sodium 100 t_as_ne Sodium 100 MG MG eded} MG Lubiproston Lubiproston No Lubiprosto e 24 MCG e 24 MCG ne 24 MCG traMADol traMADol No 1{table traMADol HCl 50 MG HCl 50 MG t_as_ne HCl 50 MG eded} Ozempic (1 Ozempic (1 No Ozempic (1 MG/DOSE) 2 MG/DOSE) 2 MG/DOSE) 2 MG/1.5ML MG/1.5ML MG/1.5ML Pravastatin Pravastatin No 1{table QD Pravastati Sodium 40 Sodium 40 t} n Sodium MG MG 40 MG Pravastatin Pravastatin No Pravastati Sodium 40 Sodium 40 n Sodium MG MG 40 MG Docusate Docusate No 1{table BID Docusate Sodium 100 Sodium 100 t_as_ne Sodium 100 MG MG eded} MG Amitiza 24 Amitiza 24 No BID Amitiza 24 MCG MCG MCG Azopt 1 % Azopt 1 % No 1{drop_ TID Azopt 1 % into_af fected_ eye} Ozempic (1 Ozempic (2021- No Ozempic (1 MG/DOSE) 2 MG/DOSE) 2 07-20 MG/DOSE) 2 MG/1.5ML MG/1.5ML 00:00 MG/1.5ML :00 Ozempic (1 Ozempic (2021- No Ozempic (1 MG/DOSE) 2 MG/DOSE) 2 07-20 MG/DOSE) 2 MG/1.5ML MG/1.5ML 00:00 MG/1.5ML :00 Ozempic (1 Ozempic (2021- No Ozempic (1 MG/DOSE) 2 MG/DOSE) 2 07-20 MG/DOSE) 2 MG/1.5ML MG/1.5ML 00:00 MG/1.5ML :00 Ozempic Ozempic 2019- No Matty Inject 0.5 Common 08-18 Hicks mg SC once [facility] 00:00 weekly - [facility] Vital Signs Vital Name Observation Time Observation Value Comments Source height 2022-07-14 14:10:00 62 [in_i] [facility] weight 2022-07-14 14:10:00 134.1 [lb_av] Common [facility] temperature 2022-07-14 14:10:00 97.2 [degF] [facility] bmi 2022-07-14 14:10:00 24.52 kg/m2 [facility] oximetry 2022-07-14 14:10:00 99 % [facility] respiratory rate 2022-07-14 14:10:00 18 /min Comm on [facility] blood pressure 2022-07-14 14:10:00 117 mm[Hg] Common [facility] - systolic [facility] blood pressure 2022-07-14 14:10:00 63 mm[Hg] Common [facility] - diastolic [facility] height 2022-07-14 14:30:00 62 [in_i] Common [facility] weight 2022-07-14 14:30:00 134.1 [lb_av] [facility] temperature 2022-07-14 14:30:00 97.2 [degF] [facility] bmi 2022-07-14 14:30:00 24.52 kg/m2 [facility] oximetry 2022-07-14 14:30:00 99 % [facility] respiratory rate 2022-07-14 14:30:00 18 /min Comm on [facility] blood pressure 2022-07-14 14:30:00 117 mm[Hg] Common [facility] - systolic [facility] blood pressure 2022-07-14 14:30:00 63 mm[Hg] Common [facility] diastolic [facility] height 2022-06-07 09:40:00 62 [in_i] Common [facility] weight 2022-06-07 09:40:00 137.0 [lb_av] [facility] temperature 2022-06-07 09:40:00 97.2 [degF] [facility] bmi 2022-06-07 09:40:00 25.05 kg/m2 [facility] oximetry 2022-06-07 09:40:00 97 % [facility] respiratory rate 2022-06-07 09:40:00 16 /min Comm on [facility] blood pressure 2022-06-07 09:40:00 138 mm[Hg] [facility] - systolic [facility] blood pressure 2022-06-07 09:40:00 70 mm[Hg] [facility] - diastolic [facility] height 2022-03-24 09:40:00 62 [in_i] Common S [facility] weight 2022-03-24 09:40:00 135 [lb_av] [facility] temperature 2022-03-24 09:40:00 97.1 [degF] Common S pirit [facility] bmi 2022-03-24 09:40:00 24.69 kg/m2 [facility] oximetry 2022-03-24 09:40:00 99 % Common S [facility] respiratory rate 2022-03-24 09:40:00 17 /min Comm on [facility] blood pressure 2022-03-24 09:40:00 138 mm[Hg] Common [facility] - systolic [facility] blood pressure 2022-03-24 09:40:00 75 mm[Hg] [facility] - diastolic [facility] height 2021-12-22 14:20:00 62 [in_i] Common S [facility] weight 2021-12-22 14:20:00 135 [lb_av] Common [facility] temperature 2021-12-22 14:20:00 97.6 [degF] Common S pirit [facility] bmi 2021-12-22 14:20:00 24.69 kg/m2 [facility] 2021-12-22 14:20:00 100 % Common S [facility] respiratory rate 2021-12-22 14:20:00 16 /min Comm on [facility] blood pressure 2021-12-22 14:20:00 137 mm[Hg] Common [facility] - systolic [facility] blood pressure 2021-12-22 14:20:00 80 mm[Hg] Common [facility] - diastolic [facility] height 2021-10-27 11:40:00 62 [in_i] Common S pirit - [facility] weight 2021-10-27 11:40:00 134.5 [lb_av] Common [facility] temperature 2021-10-27 11:40:00 97.7 [degF] Common S pirit - [facility] bmi 2021-10-27 11:40:00 24.6 kg/m2 Common S pirit - [facility] oximetry 2021-10-27 11:40:00 100 % Common S pirit [facility] respiratory rate 2021-10-27 11:40:00 18 /min Comm on [facility] blood pressure 2021-10-27 11:40:00 133 mm[Hg] Common [facility] - systolic [facility] blood pressure 2021-10-27 11:40:00 69 mm[Hg] [facility] - diastolic [facility] height 2021-07-29 10:50:00 62 [in_i] Common S pirit [facility] weight 2021-07-29 10:50:00 139.0 [lb_av] Common [facility] temperature 2021-07-29 10:50:00 97.5 [degF] Common S pirit [facility] bmi 2021-07-29 10:50:00 25.42 kg/m2 Common S pirit [facility] oximetry 2021-07-29 10:50:00 99 % Common S pirit - [facility] respiratory rate 2021-07-29 10:50:00 17 /min Comm on [facility] blood pressure 2021-07-29 10:50:00 138 mm[Hg] [facility] - systolic [facility] blood pressure 2021-07-29 10:50:00 76 mm[Hg] [facility] - diastolic [facility] height 2021-07-29 11:10:00 62 [in_i] Common S pirit [facility] weight 2021-07-29 11:10:00 139.0 [lb_av] Common [facility] - [facility] temperature 2021-07-29 11:10:00 97.5 [degF] Common S pirit - [facility] bmi 2021-07-29 11:10:00 25.42 kg/m2 [facility] S [facility]irit [facility] oximetry 2021-07-29 11:10:00 99 % [facility] 2021-07-29 11:10:00 17 /min Comm on Spirit - [facility] blood pressure 2021-07-29 11:10:00 138 mm[Hg] [facility] - systolic [facility] blood pressure 2021-07-29 11:10:00 76 mm[Hg] [facility] - diastolic [facility] height 2021-04-19 15:00:00 62 [in_i] Common [facility] weight 2021-04-19 15:00:00 140.3 [lb_av] [facility] temperature 2021-04-19 15:00:00 97.5 [degF] Common S pirit [facility] bmi 2021-04-19 15:00:00 25.66 kg/m2 Common S pirit - [facility] blood pressure 2021-04-19 15:00:00 122 mm[Hg] [facility] - systolic [facility] blood pressure 2021-04-19 15:00:00 74 mm[Hg] [facility] - diastolic [facility] height 2021-01-14 08:30:00 62 [in_i] Common S pirit - [facility] weight 2021-01-14 08:30:00 135.2 [lb_av] Common [facility] - [facility] temperature 2021-01-14 08:30:00 97.3 [degF] Common S pirit [facility] bmi 2021-01-14 08:30:00 24.73 kg/m2 Common S pirit [facility] blood pressure 2021-01-14 08:30:00 144 mm[Hg] [facility] - systolic [facility] blood pressure 2021-01-14 08:30:00 72 mm[Hg] Common [facility] - diastolic [facility] height 2020-12-30 10:00:00 62 [in_i] Common [facility] weight 2020-12-30 10:00:00 139 [lb_av] Common [facility] temperature 2020-12-30 10:00:00 98 [degF] Common [facility] bmi 2020-12-30 10:00:00 25.42 kg/m2 [facility] blood pressure 2020-12-30 10:00:00 133 mm[Hg] Common [facility] - systolic [facility] blood pressure 2020-12-30 10:00:00 74 mm[Hg] Common [facility] - diastolic [facility] Procedures This patient has no known procedures. Encounters Start End Encounter Admission Attending Care Care Encounter Source Date/Time Date/Time Type Type Clinicians Facility Department ID 2022-07-13 Outpatient Hicks, STLMLC STLMLC [id number] Common 08:25:01 Matty [address]01 [facility] 2022-06-07 Outpatient Hicks, STLMLC STLMLC [id number] Common 07:30:00 Matty [id number] [facility] 2022-03-22 Outpatient Hicks, STLMLC STLMLC [id number] Common 10:00:01 Matty 25434 [facility] 2021-08-24 Outpatient Hicks, STLMLC STLMLC [id number] Common 10:52:00 Matty [facility] 2021-07-29 Outpatient Hicks, STLMLC STLMLC [id number] Common 10:45:02 Matty [facility] 2021-07-19 Outpatient Hicks, STLMLC STLMLC [id number] Common 09:21:01 Matty [facility] 2021-06-30 Outpatient Hicks, STLMLC STLMLC [id number] Common 13:58:19 Matty [facility] 2021-06-30 Outpatient Hicks, STLMLC STLMLC Common 13:54:12 Matty [address]54 [facility] 2021-06-30 Outpatient Hicks, STLMLC STLMLC [id number] Common 13:31:28 Matty 54116 [facility] 2021-06-30 Outpatient Hicks, STLMLC STLMLC [id number] Common 13:08:27 Matty 28215 [facility] 2021-06-30 Outpatient Hicks, STLMLC STLMLC Common 13:07:24 Matty 55070 [facility] 2021-06-30 Outpatient Hicks, STLMLC STLMLC Common 12:56:09 Matty 17642 [facility] 2021-06-30 Outpatient Hicks, STLMLC STLMLC Common 12:44:05 Matty 21909 [facility] 2021-06-30 Outpatient Hicks, STLMLC STLMLC Common 12:42:02 Matty 33870 [facility] 2021-06-30 Outpatient Hicks, STLMLC STLMLC Common 12:38:51 Matty 27003 [facility] 2021-06-30 Outpatient Hicks, STLMLC STLMLC Common 11:46:35 Matty 51660 [facility] 2021-06-30 Outpatient Hicks, STLMLC STLMLC Common 11:27:38 Matty 89740 [facility] 2021-06-30 Outpatient Hicks, STLMLC STLMLC Common 11:21:26 Matty 06663 [facility] 2021-06-30 Outpatient Hicks, STLMLC STLMLC Common 11:14:30 Matty 05194 [facility] 2021-06-30 Outpatient Hicks, STLMLC STLMLC Common 11:13:17 Matty 02168 [facility] 2022-11-08 2022-11-09 Inpatient JANELLE LindaCL MEDI.01 [id number] [facility] 05:44:00 17:31:00 Zachary Colvin [facility] 2022-09-05 2022-09-05 Ambulatory MHIE MNA [id number] Memoria 20:00:00 20:00:00 Pre-Reg Neurology 00 l Lenny Ventress 2022-09-05 2022-09-05 Ambulatory MHIE MNA [id number] Memoria 20:00:00 20:00:00 Pre-Reg Neurology 00 l Lenny Ventress 2022-09-05 2022-09-05 Outpatient MHIE MHIE [id number] Memoria 15:00:00 15:00:00 00 l Ventress 2022-09-05 2022-09-05 Outpatient LUIS ARMANDO PorterSCHVARGHESE [id number] 15:00:00 15:00:00 Jordin Donaldson 2022-07-14 2022-07-14 OFFICE STLMLC STLMLC [id number] Co mmon 00:00:00 00:00:00 VISIT Spirit ESTAB PT - CHI LEVEL 4 [facility] 2022-07-14 2022-07-14 SUB ANNUAL STLMLC STLMLC [id number] Common 00:00:00 00:00:00 MCR Spirit WELLNESS - CHI VISIT [facility] 2022-07-14 2022-07-14 (TEL) STLMLC STLMLC [id number] Co mmon 00:00:00 00:00:00 Spirit - CHI [facility] 2022-06-07 2022-06-07 OFFICE STLMLC STLMLC [id number] Co mmon 00:00:00 00:00:00 VISIT Spirit ESTAB PT - CHI LEVEL 3 [facility] 2022-06-02 2022-06-02 (TEL) STLMLC STLMLC [id number] Co mmon 00:00:00 00:00:00 Spirit - CHI [facility] 2022-03-24 2022-03-24 OFFICE STLMLC STLMLC [id number] Co mmon 00:00:00 00:00:00 VISIT Spirit ESTAB PT - CHI LEVEL 4 [facility] 2021-12-22 2021-12-22 OFFICE STLMLC STLMLC [id number] Co mmon 00:00:00 00:00:00 VISIT [facility] PT 4 [facility] 2021-11-05 2021-11-05 (TEL) STLMLC STLMLC [id number] Co mmon 00:00:00 00:00:00 [facility] 2021-11-03 2021-11-03 (TEL) STLMLC STLMLC [id number] Co mmon 00:00:00 00:00:00 [facility] 2021-10-27 2021-10-27 OFFICE STLMLC STLMLC [id number] Co mmon 00:00:00 00:00:00 VISIT [facility] PT CHI [address] 2021-10-22 2021-10-22 (TEL) STLMLC STLMLC [id number] Co mmon 00:00:00 00:00:00 [facility] 2021-10-12 2021-10-12 (TEL) STLMLC STLMLC [id number] Co mmon 00:00:00 00:00:00 [facility] 2021-09-23 2021-09-23 (TEL) STLMLC STLMLC [id number] Co mmon 00:00:00 00:00:00 [facility] 2021-09-08 2021-09-08 (TEL) STLMLC STLMLC [id number] Co mmon 00:00:00 00:00:00 [facility] 2021-09-08 2021-09-08 (TEL) STLMLC STLMLC [id number] Co mmon 00:00:00 00:00:00 [facility] 2021-08-24 2021-08-24 (TEL) STLMLC STLMLC [id number] Co mmon 00:00:00 00:00:00 [facility] 2021-07-29 2021-07-29 OFFICE STLMLC STLMLC [id number] Co mmon 00:00:00 00:00:00 VISIT Spirit ESTAB PT - CHI [address] [facility] 2021-07-29 2021-07-29 SUB ANNUAL STLMLC STLMLC [id number] Common 00:00:00 00:00:00 MCR [facility] WELLNESS - [facility] VISIT [facility] 2021-07-08 2021-07-08 (TEL) STLMLC STLMLC [id number] Co mmon 00:00:00 00:00:00 [facility] 2021-05-06 2021-05-06 (TEL) STLMLC STLMLC [id number] Co mmon 00:00:00 00:00:00 [facility] 2021-04-19 2021-04-19 OFFICE STLMLC STLMLC [id number] Co mmon 00:00:00 00:00:00 VISIT Spirit ESTAB PT - CHI LEVEL 4 [facility] 2021-01-14 2021-01-14 OFFICE STLMLC STLMLC [id number] Co mmon 00:00:00 00:00:00 VISIT EST Spir it PT LEVEL 3 - CHI [facility] 2020-12-30 2020-12-30 OFFICE STLMLC STLMLC [id number] Co mmon 00:00:00 00:00:00 VISIT [facility] ESTAB PT - CHI LEVEL 4 [facility] 2020-12-02 2020-12-02 Outpatient STLMLC STLMLC [id number] Common 00:00:00 00:00:00 [facility] 2020-11-30 2020-11-30 Outpatient STLMLC STLMLC [id number] Common 00:00:00 00:00:00 [facility] 2020-11-30 2020-11-30 Outpatient STLMLC STLMLC [id number] Common 00:00:00 00:00:00 [facility] 2020-11-23 2020-11-23 Outpatient STLMLC STLMLC [id number] Common 00:00:00 00:00:00 [facility] 2020-11-09 2020-11-09 Outpatient STLMLC STLMLC [id number] Common 00:00:00 00:00:00 [facility] 2020-10-27 2020-10-27 Outpatient STLMLC STLMLC [id number] Common 00:00:00 00:00:00 [facility] 2020-10-15 2020-10-15 Outpatient STLMLC STLMLC [id number] Common 00:00:00 00:00:00 [facility] 2020-10-15 2020-10-15 Outpatient STLMLC STLMLC [id number] Common 00:00:00 00:00:00 [facility] 2020-10-12 2020-10-12 Outpatient STLMLC STLMLC [id number] Common 00:00:00 00:00:00 [facility] 2020-09-29 2020-09-29 Outpatient STLMLC STLMLC [id number] Common 00:00:00 00:00:00 [facility] 2020-09-28 2020-09-28 Outpatient STLMLC STLMLC [id number] Common 00:00:00 00:00:00 [facility] 2020-09-23 2020-09-23 Outpatient STLMLC STLMLC [id number] Common 00:00:00 00:00:00 [facility] 2020-08-20 2020-08-20 Outpatient STLMLC STLMLC [id number] Common 00:00:00 00:00:00 [facility] 2020-07-09 2020-07-09 Outpatient STLMLC STLMLC [id number] Common 00:00:00 00:00:00 [facility] 2020-05-25 2020-05-25 Outpatient STLMLC STLMLC [id number] Common 00:00:00 00:00:00 [facility] 2020-05-22 2020-05-22 Outpatient STLMLC STLMLC [id number] Common 00:00:00 00:00:00 [facility] 2020-05-12 2020-05-12 Outpatient STLMLC STLMLC [id number] Common 00:00:00 00:00:00 [facility] 2020-04-22 2020-04-22 Outpatient STLMLC STLMLC [id number] Common 00:00:00 00:00:00 [facility] 2020-03-17 2020-03-17 [facility] [id number] Common 00:00:00 00:00:00 [facility] 2020-02-19 2020-02-19 [facility] [id number] Common 14:00:00 14:00:00 [place] [address] [facility] 2020-01-21 2020-01-21 [facility] [id number] Common 10:45:00 10:45:00 t [place] [address] [facility] 2020-01-06 2020-01-06 [facility] [id number] Common 16:49:00 16:49:00 t [place] [address] [facility] 2019-12-23 2019-12-23 [facility] [id number] Common 09:00:00 09:00:00 t [place] [address] [facility] 2019-12-13 2019-12-13 [facility] [id number] Common 11:53:00 11:53:00 t [place] [address] [facility] 2019-11-21 2019-11-21 [facility] [id number] Common 11:25:00 11:25:00 t [place] [address] [facility] 2019-11-18 2019-11-18 [facility] [id number] Common 08:45:00 08:45:00 t [place] [address] [facility] 2019-11-14 2019-11-14 [facility] [id number] Common 16:00:00 16:00:00 t [place] [address] [facility] 2019-11-05 2019-11-05 [facility] [id number] Common 14:00:00 14:00:00 t [place] [address] [facility] 2019-10-23 2019-10-23 [facility] [id number] Common 14:00:00 14:00:00 t [place] [address] [facility] 2019-10-23 2019-10-23 [facility] [id number] Common 13:00:00 13:00:00 t [place] [address] [facility] 2019-09-11 2019-09-11 [facility] [id number] Common 16:41:00 16:41:00 t [place] [address] [facility] 2019-08-29 2019-08-29 [facility] [id number] Common 09:26:00 09:26:00 t [place] [address] [facility] 2019-08-21 2019-08-21 [facility] [id number] Common 10:52:00 10:52:00 t [place] [address] [facility] 2019-08-14 2019-08-14 [facility] [id number] Common 13:30:00 13:30:00 t [place] [address] [facility] Results Test Description Test Time Test Comments Results Result Comments Source GLUCOSE BEDSIDE 2022-11-08 22:50:00 Test Item Value Reference Range Interpretation Comme nts GLUCOSE BEDSIDE (test code = 118 MG/DL 70-110 H Performed by certified copy center operator at [facility]) [facility] [id number] 16:34:00 Test Item Value Reference Range Interpretation Comments ACT-ISTAT (test code 227 SEC 74-137 H Perform ed by certified = ACTI) copy center operator at [facility] GLUCOSE [id number] 15:07:00 Test Item Value Reference Range Interpretation Comments GLUCOSE BEDSIDE (test 87 MG/DL 70-110 N Perfor med by certified code = GLUBED) copy center operator at [facility] - CT ABD PELVIS W/O [id number] 00:00:00 [facility] JOSUE WOODSName: NATALIE FULLER : 1945 Sex: F Name: NATALIE FULLER [facility] Josue Woods : 1945 Age/S: 77 / F [address] [place] [address] Blvd Unit #: [id number] Loc: [place] [address] Phys: Noe Peter MD Acct: [id number] Dis Date: Status: ADM IN PHONE #: [phone] Exam Date: 11/08/20222054 FAX #: [phone] Reason: RETROPERITONEAL BLEEDING EXAMS: CPT CODE: [id number] CT ABD PELVIS W/O CONT 45491 PROCEDURE INFORMATION: Exam: CT Abdomen And Pelvis Without Contrast Exam date and time: 11/08/2022 8:46 PM Age: 77 years old Clinical indication: Condition or disease; Other: Retroperitoneal bleeding TECHNIQUE: Imaging protocol: Computed tomography of the abdomen and pelvis without contrast. Radiation optimization: All CT scans at this facility use at least one of these dose optimization techniques: automated exposure control; mA and/or kV adjustment per patient size (includes targeted exams where dose is matched to clinical indication); or iterativereconstruction. REPORTING DATA: Count of CT and Cardiac NM exams in prior 12 months: This patient has received 0 known CTs and 0 known cardiac nuclear medicine studies in the 12 months prior to the current study. COMPARISON: DX XR CHEST 2 V 11/04/2022 10:47 AM FINDINGS: Liver: Normal. No mass. Gallbladder and bile ducts: Gallbladder shows dependent calcified stones. No ductal dilation. Pancreas: Nonspecific diffuse atrophy. No ductal dilation. Spleen: Normal. No splenomegaly. Adrenal glands: Normal.No mass. Kidneys and ureters: Normal. No hydronephrosis. Stomach and bowel: Unremarkable. No obstruction. No mucosal thickening. Proximal colon contains a large amount stool. Appendix: No evidence of appendicitis. Intraperitoneal space: Unremarkable. No free air. No significant fluid collection. Vasculature: Abdominal aorta contains atherosclerotic calcifications. No abdominal aortic aneurysm. Lymph nodes: Unremarkable. No enlarged lymph nodes. Urinary bladder: Unremarkable as visualized. Reproductive: Unremarkable as visualized. Bones/joints: Unremarkable. No acute fracture. Soft tissues: Umbilical and right paraumbilical hernias contain fat. Right inguinal region shows nonspecific stranding concordant with recent vascular access attempt. IMPRESSION: No acute CT evidence of retroperitoneal hemorrhage. Cholelithiasis PAGE 1 Signed Report (CONTINUED) Name: NATALIE FULLER [facility] [place] : 1945 Age/S: 77 / F [address] [place] [address] Blvd Unit #: [id number] Loc: [place] [address] Phys: Noe Peter MD Acct: [id number] Dis Date: Status: ADM IN PHONE #: [phone] Exam Date: 11/08/20222054 FAX #: [phone] Reason: RETROPERITONEAL BLEEDING EXAMS: CPT CODE: [id number] CT ABD PELVIS W/O CONT 39512 (Continued) at 2240 Reported and signed by: Marcus Burnett M.D. CC: Noe Peter MD Technologist:RT Chica(R) CTDI: DLP: Trnscb Date/Time: 11/08/2022 (2239) [email or web address] Orig Print D/T: S: 11/08/2022 (2239) PAGE 2 Signed Report- XR CHEST 2 [id number] 12:38:00 [facility] 1945 Sex: F FAX:Noe Lobo MD [phone] [place]: St: PRE Name: NATALIE FULLER [facility] : 1945 Age/S: 77/F [address] [place], [place] [address]vd Unit #: [id number] Loc: [place] [address] Phys: Noe Peter MD Acct: [id number] Dis Date: Status: PRE SDC PHONE #: [phone] Exam Date: 11/04/2022 1048 FAX #: [phone] Reason: PREOP EXAMS: CPT CODE: [id number] XR CHEST 2 V 95364 STUDY: Chest radiograph HISTORY: Preop COMPARISON: None. TECHNIQUE: Frontal and lateral views of the chest. LOCATION: H19 FINDINGS: The cardiac silhouette is unremarkable. There is no focal consolidation, pleural effusion, or pneumothorax. No acute osseous abnormalities are identified. IMPRESSION: No radiographic evidence for acute pulmonary abnormality. at 1237 Reported andsigned by: Luis Alberto Ramírez M.D. CC: Noe Peter MD Technologist: Fidencio Partida Trnscrd Date/Time/By: 11/04/2022 (1464) : By: [email or web address] Orig Print D/T: S: 11/04/2022 (3241) PAGE 1 Signed ReportBASIC METABOLIC [id number] 11:18:00 Test Item Value Reference Range Interpretation Comments SODIUM (test code = 144 mEq/L 134-147 N NA) POTASSIUM (test code 3.8 mEq/L 3.4-5.0 N = K) CHLORIDE (test code 110 mEq/L 100-108 H = CL) CARBON DIOXIDE (test 28 mEq/l 21-33 N code = CO2) ANION GAP (test code 10 0-20 N = GAP) GLUCOSE (test code = 103 mg/dL 70-110 N GLU) BLOOD UREA NITROGEN 11 mg/dL 7-18 N (test code = BUN) GLOMERULAR 93.0 70-80 H The Glomerular FILTRATION RATE Filtration R ate is a (test code = GFR) calculated parameterbased on serum Creatinine, pat ient age and sex. GFR va luesless than 60 mL/min/ 1.73 square meters a re indicative ofCh ronic Kidney Disease. Values less than 15 mL/min/1.73squa re meters indicate Kidney failure. The calculation forGFR is based on the CKD-EPI (2020) calculat ion. This formulais race indifferent and is the recommended for nakul for GFRby the Natio nal Kidney Foundati on for Adults.The GFR will not calculate if th e sex is unknown or if thepatient's ag e is <18 years. CREATININE (test 0.6 mg/dL 0.6-1.3 N code = CREAT) CALCIUM (test code = 8.7 mg/dL 8.0-10.5 N CA) PROTHROMBIN [id number] 11:04:00 Test Item Value Reference Range Interpretation Comments PROTHROMBIN TIME 11.3 SECONDS 9.3-12.9 N PATIENT (test code = PTP) INTERNATIONAL NORMAL 1.0 0.8-1.2 N TARGET INR BY RATIO (test code = INDICATIO N Indication INR) INR1. Prophylax is of venous thrombos is 2.0 - 3.0 (orthoped ic surgery), Proph ylaxis of venous throm bosis (other than hig h-risk surgery), Treat ment of Deep Vein Thrombosis/Pulm onary Embolism, Preve ntion of systemic emb olism - Tissue heart va lves, Acute Myocardia l Infarction (to prevent systemic emboli sm), Valvular heart disease, Atrial Fibrillation, Bileaflet mecha nical valve in aortic position.2. Mec hanical prosthetic valv es (high risk), 2. 5 - 3.5 Presence of Lup us Anticoagulant o r Antiphospholipi d Antibodies, Pre vention of systemic emb olism - Acute Myocardia l Infarction (to prevent recurrent infar ct). CBC W/AUTO [id number] 11:00:00 Test Item Value Reference Range Interpretation Comments WHITE BLOOD CELL (test code = 6.2 x10 3/uL 4.5-11.0 N WBC) RED BLOOD CELL (test code = 3.96 x10 6/uL 3.54-5.02 N RBC) HEMOGLOBIN (test code = HGB) 9.8 g/dL 11.0-15.0 L HEMATOCRIT (test code = HCT) 32.6 % 33.0-45.0 L MEAN CELL VOLUME (test code = 82.3 fL 81.0-99.0 N MCV) MEAN CELL HGB (test code = MCH) 24.7 pg 27.0-33.0 L MEAN CELL HGB CONCETRATION 30.1 g/dL 33.0-37.0 L (test code = MCHC) RED CELL DISTRIBUTION WIDTH CV 15.6 % 11.5-14.5 H (test code = RDW) RED CELL DISTRIBUTION WIDTH SD 47.0 fL 37.0-54.0 N (test code = RDW-SD) PLATELET COUNT (test code = 232 x10 3/uL 150-400 N PLT) MEAN PLATELET VOLUME (test code 11.1 fL 7.0-9.0 H = MPV) NEUTROPHIL % (test code = NT%) 56.9 % 56.0-77.0 N IMMATURE GRANULOCYTE % (test 0.2 % 0.0-2.0 N code = IG%) LYMPHOCYTE % (test code = LY%) 32.9 % 14.0-32.0 H MONOCYTE % (test code = MO%) 6.7 % 4.8-9.0 N EOSINOPHIL % (test code = EO%) 3.0 % 0.3-3.7 N BASOPHIL % (test code = BA%) 0.3 % 0.0-2.0 N NUCLEATED RBC % (test code = 0.0 % 0-0 N NRBC%) NEUTROPHIL # (test code = NT#) 3.54 x10 3/uL 2.0-7.6 N IMMATURE GRANULOCYTE # (test 0.01 x10 3/uL 0.00-0.03 N code = IG#) LYMPHOCYTE # (test code = LY#) 2.05 x10 3/uL 1.0-3.8 N MONOCYTE # (test code = MO#) 0.42 x10 3/uL 0.1-0.8 N EOSINOPHIL # (test code = EO#) 0.19 x10 3/uL 0.0-0.2 N BASOPHIL # (test code = BA#) 0.02 x10 3/uL 0.0-0.2 N NUCLEATED RBC # (test code = 0.00 x10 3/uL 0.0-0.1 N NRBC#) MANUAL DIFF REQUIRED (test code NO = MDIFF) Notes Date/Time Note Provider Source 2022-11-15 08:19:00-00:00 [id number] [place] [address] PATIENT NAME: NATALIE FULLER ADMIT DATE: 11/08/22 ACCOUNT NO: [id number] ROOM NO: [facility] AGE: 77 REPORT TYPE: CARDIAC CATHETERIZATION REPORT SEX : F ADMITTING PHYSICIAN:Noe Peter MD ATTENDING PHYSICIAN:Zachary Mckeon MD PROCEDURE DATE: 11/08/2022 PROCEDURES PERFORMED: 1. Peripheral angiogram. 2. Balloon angioplasty of severe distal left SFA stenosis. I used a 5 x 120 mm balloon. ACCESS: Right femoral artery, 6-Senegalese closed wi th 6-Senegalese Angio-Seal. COMPLICATIONS: None. ESTIMATED BLOOD LOSS: Less than 20 mL. INDICATION: severe peripheral vascular disease w ith claudication. DESCRIPTION OF PROCEDURE: After risks, benefits and alternatives were explained, the patient agreed to proceed and sig anthony informed consent. The patient was brought into the cardiac catheteriza tion laboratory, prepped and draped in sterile fashion. Then, I accessed the right femoral artery using a micropuncture kit, ultrasoun d guidance, fluoroscopy and placed 6-Senegalese [place] sheath. I took a crossover c atheter over a [employer] wire into the distal aorta, crossed to the other side and then exchanged for a long 65 cm Destination sheath, 6-Senegalese and placed it in the left SFA. Angiogram was performed and then I took a 5 x 120 mm balloon, performed angioplasty with excellent results, also performed balloon angioplasty of the popliteal a rtery with excellent results, then removed the wire and th e sheath and Angio-Seal was placed for closure with good hemostasis. FINDINGS: 1. Distal SFA is 80%. 2. Popliteal artery was 90% stenosed, status pos t balloon angioplasty of both using 5 x 120 mm balloon. PLAN: Aspirin, Plavix, and statin and follow up in 4 weeks post discharge. Dictated By: Noe Peter MD Date Dictated: 11/15/2022 08:19:26 Date Transcribed: 11/15/2022 09:23:51 SR/QASIM PATIENT NAME: NATALIE FULLER 650 Receipt ID: [id number] Authenticated by Noe Peter MD On 12/13/2022 10:55:53 AM Electronically Signed by Noe Peter MD on at 1055 PATIENT NAME: NATALIE FULLER 650 2022-11-09 16:32:00-00:[address] [facility] Hospitalist History Physical REPORT#:[id number] REPORT STATUS: Signed DATE:11/09/22 TIME: 1632 PATIENT: NATALIE FULLER UNIT #: [id number] ROOM/BED: [place] [address] : 46 AGE: 77 SEX: F ATTEND: Monet Mckeon MD ADM AUTHOR: Kerline Iglesias * ALL edits or amendments must be made on the Optics 1/computer document * History of Present Illness HPI Chief complaint: s/p peripheral percutaneous angioplasty PCP: PCP: No Primary or Family Physician HPI: Jonny is a 65 year female wi th PMH of severe PAD, HTN , DM2, HLD . 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 No complication s are reported. Denies pain, weakness, dyspnea, swelling, bleeding, fever, N/ V. History Social History Smoking status for patients 13 years old or olde r: Never Smoker Medication/Allergy-Vaccine Hx Allergies: Coded Allergies: Penicillins (Severe, RASH 11/04/22) Review of Systems Neuro: Reports: headache. OBJECTIVE VS/I O: Vital Signs Date Temp Pulse Resp B/P B/P Mean Pulse Ox FiO2 11/08-11/09 97.9-98.4 78-86 16-17 157-179/68-79 104.5-105.3 99-100 Last Documented: Result Date Time Pulse Ox 99 11/09 1551 B/P 174/70 11/09 1551 B/P Mean 104.5 11/09 1551 Temp 98.4 11/09 1551 Pulse 86 11/09 1551 Resp 17 11/09 1551 O2 Delivery Room air 11/09 0344 Patient Weight and BMI Weight (kg): 61.364 BMI: 26.4 Medications: Active Meds + DC'd Last 24 Hrs Hydralazine HCl (APRESOLINE) 10 MG ONCE IV (DC) Glimepiride (AmaryL) 2 MG BID PO Pravastatin Sodium (PRAVACHOL) 40 MG BEDTIME PO Aspirin (ASPIRIN) 0 .STK-MED ONE .ROUTE (DC) Clopidogrel Bisulfate (CLOPIDOGREL BISULFATE) 0 .STK-MED ONE .ROUTE (DC) Atropine Sulfate (ATROPINE SULFATE 0.1MG/ML SYR) 0.5 MG ASDIR PRN IV (DC ) Sodium Chloride (SODIUM CHLORIDE 0.9%) 1,000 ML .[id number] IV (DC) Sodium Chloride (SODIUM CHLORIDE 0.9%) 500 ML DIR PRN IV (DC) General appearance: alert, awake ENT: moist mucosal membranes Cardiovascular: normal capillary refill, normal heart sounds, regular rate rhythm Abdomen: non-tender, normal bowel sounds Genitourinary: no bladder distention, no flank p ain Extremities: moves all, normal capillary refill Musculoskeletal: normal inspection Neuro/PROJECT DEVELOPMENT DIRECTOR: alert, oriented X 3, CNII-XII intact Skin: dry, intact Psychiatry: normal affect, normal judgment/insig ht Results Findings/Data: Laboratory Tests: 11/08 2238 Chemistry POC Glucose (70 - 110 MG/DL) 118 H Radiology data: Recent Impressions: CAT SCAN - CT ABD PELVIS W/O CONT 11/08 2054 Report Impression - Status: SIGNED Entered: 11/08/20222239 IMPRESSION: No acute CT evidence of retroperitoneal hemorrha ge. Cholelithiasis Impression By: Jose Alfredo Burnett M.D. Diagnosis, Assessment Plan Free Text A P: ASSESSMENT PVD , s/p peripheral CLOTH LAYER Hx. HTN Hx DM2 PLAN Postop care per cardiology Home reds resumed Hold metformin for 48 hours. Encourage ambulation Cleared to dischage per cardio Quality: Gen Med Crit Care Current Medications Current medication review: I attest that the foregoing medication list in t medical record is true, accurate, and complete to the best of my knowled ge. at 8389 RPT #:[id number] END OF REPORT 2022-11-09 16:28:00-00:00 [facility] Hospitalist Discharge Summary REPORT#:[id number] REPORT STATUS: Signed DATE:11/09/22 TIME: 1628 PATIENT: NATALIE FULLER UNIT #: [id number] ROOM/BED: 66-1 : 46 AGE: 77 SEX: F ATTEND: Monet Mckeon MD ADM AUTHOR: Kerline Iglesias * ALL edits or amendments must be made on the Optics 1/computer document * General Information Discharge date: 11/09/22 Discharge diagnosis: PVD , s/p peripheral CLOTH LAYER Hospital course: PVD , s/p peripheral CLOTH LAYER Hx. HTN Hx DM2 PLAN Postop care per cardiology Home reds resumed Hold metformin for 48 hours. Encourage ambulation Cleared to dischage per cardio Pt. condition on discharge: stable Med Rec Med Rec Discharge meds: Continue taking these medications: GLIMEPIRIDE (AMARYL) 2 MG TAB 2 MILLIGRAM ORAL TWICE DAILY. PRAVASTATIN (PRAVACHOL) 40 MG TAB 40 MILLIGRAM ORAL BEDTIME. The following medications have been changed: Old: metFORMIN (GLUCOPHAGE) 1,000 MILLIGRAM ORAL TWICE DAILY. New: metFORMIN (GLUCOPHAGE) 1,000 MG TAB 1,000 MILLIGRAM ORAL TWICE DAILY. Instructions: hold for 48 hrs TAKE WITH MEALS Discharge Instructions PCP PCP follow-up: PCP: No Primary or Family Physician Discharge to: Home/Self Care Additional Discharge Routines: Ophthalmic Medical Technician Follow -Up Diet: Diabetic Follow-up Appointments Attending Physician: Attending Physician: Noe Peter MD Attending physician follow up timeframe: In 1-2 weeks Consulting provider 1: Provider 1: Noe Peter MD Specialty: CardiologyInterventional at 1916 RPT #:[id number] END OF REPORT 2022-11-04 10:41:00-00:00 [id number] [address] PATIENT NAME: NATALIE FULLER ADMIT DATE: ACCOUNT NO: [id number] ROOM NO: AGE: 77 REPORT TYPE: eELECTROCARDIOGRAM REPORT SEX: F ADMITTING PHYSICIAN: ATTENDING PHYSICIAN:Noe Peter MD Order: [id number] Test Reason : PREOP Test Date/Time Stamp: MonNov 04 2022 10:41:56 Blood Pressure : / mmHG Vent. Rate : 074 BPM Atrial Rate : 074 BPM P-R Int : 120 ms QRS Dur : 074 ms QT Int : 390 ms P-R-T Axes : 000 050 053 degree s QTc Int : 432 ms Sinus rhythm with premature atrial complexes Nonspecific ST and T wave abnormality Abnormal ECG Confirmed by MD BILL, MARGARITO ([id number]) on 3 1:13:51 PM Referred By: Noe Peter Confirmed by:MARGARITO PEARCE MD Electronically Signed by Margarito Castellon MD on 0 11/04/22 at 1313 PATIENT NAME: NATALIE FULLER 650
[2022-12-15] MEDS ORDERED: KETOROLAC 30 MG/ML INJ ONE (11:06)
[2022-12-15] MEDS ORDERED: methocarbamoL 500 MG TAB ONE (11:06)
[2022-12-15] MEDS ORDERED: LIDOCAINE 4% PATCH ONE (11:07)
--- NOTE | 2022-12-15 11:10 | RAD REPORT ---
EXAM DESCRIPTION: CT - Spine Lumbar Wo Con - 12/15/2022 10:47 am CLINICAL HISTORY: PAIN. Recent fall COMPARISON: Spine Lumbar Wo Con dated 05/01/2021 TECHNIQUE: Axial noncontrast CT imaging of the lumbar spine was performed with coronal and sagittal re-formatted images. All CT scans are performed using dose optimization technique as appropriate and may include automated exposure control or mA/KV adjustment according to patient size. FINDINGS: Moderate anterior wedge compression deformity at L1, with approximately 50% height loss, n ew since the prior exam, with some adjacent marrow sclerosis along the inferior endplate. Buckling al yoli the posterior cortex of L1 inferiorly, projecting posteriorly for about 6 millimeter. No aggressi ve marrow pattern or malalignment. Paraspinal tissues are normal in thickness. No paraspinal abscess or hematoma seen. Intervertebral disc disease assessment is inherently limited by CT. Within these limitations, no high -grade canal stenosis suspected, with only mild effacement of the central zone ventral CSF space at t he lower L1 level. Small posterior disc bulge at L4-5 also contributes to mild ventral CSF space effa cement. No significant bony neural foraminal narrowing. . Cholesterol containing gallstones. Left superior renal pole 5 millimeter calculus. Calcifications wit hin the uterine myometrium could represent small fibroids. The uterus is not completely imaged. IMPRESSION: Moderate wedge compression deformity at L1 anteriorly, with approximately 50% vertebral body height loss. This is of indeterminate age, although it was not visualized on the April [address] Buckling of the L1 posterior cortex, projecting posteriorly for about 6 millimeter. No high-grade canal stenosis, or bony neural foraminal narrowing. No other acute findings. Please consider MRI follow-up for assessment of disc disease or neural structure involvement, if clin ically desired. Incidental findings as above including cholelithiasis and a left superior renal pole 5 millimeter sugey culus.
[2022-12-15] MEDS ORDERED: cloNIDine HCL 0.1 MG TAB ONE (13:12)
--- NOTE | 2022-12-15 14:12 | EDPHYS ---
Physician Documentation [facility] Name: Luanne Fuller Age: 77 yrs Sex: Female : 1945 Arrival Date: 12/15/2022 Time: 10:20 Bed 4 Private MD: Lizeth Hicksh ED Physician Amanda Leos HPI: 12/15 10:37 This 77 yrs old Female presents to ER via Wheelchair with complaints of Fall sd2 Injury - 12/13/22, Back Pain. 10:37 77 yo F presents with CC of low back pain s/p fall 2 days ago. Pt reports she slipped sd2 and fell backwards but did not hit her head or lose consciousness. Complains of pain to her low back that is worse with moving and improves with rest. Has been taking Tylenol and an OTC supplement to help with pain with no relief. Denies fever, urinary symptoms, weakness or numbness. . Historical: - Allergies: 10:29 PENICILLINS; ll1 - PMHx: 10:29 Diabetes - IDDM; Hypertensive disorder; ll1 - Immunization history:: Adult Immunizations up to date, Client reports receiving the 2nd dose of the Covid vaccine. - Social history:: Smoking status: Patient denies any tobacco usage or history of. ROS: 10:37 Constitutional: Negative for fever, chills, and weight loss, Eyes: Negative for injury, sd2 pain, redness, and discharge, Cardiovascular: Negative for chest pain, palpitations, and edema, Respiratory: Negative for shortness of breath, cough, wheezing. Abdomen/GI: Negative for abdominal pain, nausea, vomiting, diarrhea. Back: Positive for injury and pain, MS/Extremity: Negative for injury and deformity, Skin: Negative for injury, rash, and discoloration, Neuro: Negative for headache, numbness and tingling. Exam: 10:37 Constitutional: This is a well developed, well nourished patient who is awake, alert, sd2 and in no acute distress. Head/Face: Normocephalic, atraumatic. Eyes: EOMI, normal conjunctiva bilaterally Chest/axilla: Normal chest wall appearance and motion. Nontender with no deformity. Cardiovascular: Regular rate and rhythm with a normal S1 and S2. No gallops, murmurs, or rubs. 2+ distal pulses. Respiratory: Lungs have equal breath sounds bilaterally, clear to auscultation and percussion. No rales, rhonchi or wheezes noted. No increased work of breathing, no retractions or nasal flaring. Abdomen/GI: Soft, non-tender, with normal bowel sounds. No guarding or rebound. No evidence of tenderness throughout. Back: Lower lumbar spinal and paraspinal tenderness bilaterally L>R. No costovertebral tenderness. Full range of motion. Skin: Warm, dry with normal turgor. Normal color with no rashes, no lesions, and no evidence of cellulitis. MS/ Extremity: Pulses equal, no cyanosis. Neurovascular intact. Full, normal range of motion. Ambulatory without difficulty. Neuro: 5/5 strength and normal sensation in BLEs, no increased pain with elevation of legs Psych: Awake, alert, with orientation to person, place and time. Behavior, mood, and affect are within normal limits. Vital Signs: 10:27 BP 210 / 67; Pulse 65; Resp 16; Temp 99; Pulse Ox 100% ; Weight 60 kg; Pain 9/10; db 11:13 BP 194 / 70; Pulse 68; Resp 18; Pulse Ox 99% on R/A; ph 12:30 BP 202 / 72; Pulse 69; Resp 18; Pulse Ox 99% on R/A; db 13:00 BP 206 / 68; Pulse 66; Resp 18; Pulse Ox 99% on R/A; iw 13:26 BP 201 / 69; Pulse 70; Resp 18; Pulse Ox 98% on R/A; db 14:26 BP 134 / 67; Pulse 74; Resp 18; Pulse Ox 100% on R/A; mb9 10:27 Pain Scale: Adult db MDM: 10:36 Patient medically screened. sd2 10:37 Differential diagnosis: Differential diagnosis includes but is not limited to: sd2 Fracture, contusion, abrasion, closed head injury, pneumothorax, intra-abdominal injury, intracranial hemorrhage, spinal injury among others. Data reviewed: vital signs, nurses notes. I considered the following discharge prescriptions or medication management in the emergency department Medications were administered in the Emergency Department. See MAR. Historians other than the Patient: examination graderenvironmental engineering aide used via video language line. Care significantly affected by the following chronic conditions: Diabetes, Hypertension. 14:11 ED course: BP improved at 134/67. Pt advised of need to check blood pressure regularly sd2 at home and follow up with her PCP on which medications she should be taking for this. . 12/15 10:37 Order name: CT Lumbar Spine Wo Con; Complete Time: 11:18 sd2 Administered Medications: 11:00 Drug: Ketorolac IM 30 mg Route: IM; Site: left ventrogluteal; db 15:03 Follow up: Response: No adverse reaction ll1 11:00 Drug: Methocarbamol PO 500 mg Route: PO; db 15:03 Follow up: Response: No adverse reaction ll1 11:00 Drug: Lidoderm Topical Patch 5 % (700 mg/patch) 1 patches {Note: LEFT LOWER BACK.} db Route: Topical; Site: affected area; 13:05 Drug: cloNIDine PO 0.1 mg Route: PO; iw 15:03 Follow up: Response: No adverse reaction ll1 Disposition Summary: 12/15/22 14:12 Discharge Ordered Location: Home sd2 Problem: new sd2 Symptoms: have improved sd2 Condition: Stable sd2 Diagnosis - L1 Compression Fracture sd2 - Elevated blood pressure reading sd2 Followup: sd2 - With: - When: 2 - 3 days - Reason: Recheck today's complaints, Continuance of care, Re-evaluation by your physician Discharge Instructions: - Discharge Summary Sheet iw - Lumbar Spine Fracture ph - How to Use a Back Brace ph Forms: - Medication Reconciliation Form sd2 - Thank You Letter sd2 - Antibiotic Education sd2 - Prescription Opioid Use sd2 - Patient Portal Instructions sd2 Signatures: Dispatcher [employer] Kelly Flowers RN RN iw Vaughn Daniel RN RN ll1 Amanda Leos MD MD sd2 Catalina Olguin RN RN db
--- NOTE | 2022-12-15 14:12 | ER ---
Nurse's Notes [facility] Name: Luanne Fuller Age: 77 yrs Sex: Female : 1945 Arrival Date: 12/15/2022 Time: 10:20 Bed 4 Private MD: Matty Hicks Diagnosis: L1 Compression Fracture;Elevated blood pressure reading Presentation: 12/15 10:29 Chief complaint: Patient states: Fell on Monday. Has had back pain since. Guinean ll1 speaking. Coronavirus screen: Vaccine status: Patient reports receiving the 2nd dose of the covid vaccine. Client denies travel out of the [place] in the last 14 days. At this time, the client does not indicate any symptoms associated with coronavirus-19. Ebola Screen: Patient denies travel to an Ebola-affected area in the 21 days before illness onset. Initial Sepsis Screen: Does the patient meet any 2 criteria? No. Patient's initial sepsis screen is negative. Does the patient have a suspected source of infection? No. Patient's initial sepsis screen is negative. Risk Assessment: Do you want to hurt yourself or someone else? Patient reports no desire to harm self or others. Onset of symptoms was December 13, 2022. 10:29 Method Of Arrival: Wheelchair ll1 10:29 Acuity: DAYANA 3 ll1 Triage Assessment: 10:30 General: Appears uncomfortable, Behavior is calm, cooperative, appropriate for age. ll1 Pain: Complains of pain in back Quality of pain is described as aching. Musculoskeletal: Circulation, motion, and sensation intact. Capillary refill < 3 seconds, Reports pain in back. Historical: - Allergies: 10:29 PENICILLINS; ll1 - PMHx: 10:29 Diabetes - IDDM; Hypertensive disorder; ll1 - Immunization history:: Adult Immunizations up to date, Client reports receiving the 2nd dose of the Covid vaccine. - Social history:: Smoking status: Patient denies any tobacco usage or history of. Screenin:49 [facility] ED Fall Risk Assessment (Adult) History of falling in the last 3 months, db including since admission Yes- fall prone (multiple falls) (3 pts) Confusion or Disorientation No (0 pts) Intoxicated or Sedated No (0 pts) Impaired Gait No (0 pts) Mobility Assist Device Used Yes (1 pt) Altered Elimination No (0 pt) Score/Fall Risk Level 3 or more points = High Risk Oriented to surroundings, Maintained a safe environment, Educated pt \T\ family on fall prevention, incl call for assistance when getting out of bed, Hourly rounding (assess needs \T\ fall precautionary measures) done, Utilized family, sitter, or virtual industrial ecologist as indicated. Abuse screen: Denies threats or abuse. Denies injuries from another. Nutritional screening: No deficits noted. Tuberculosis screening: No symptoms or risk factors identified. Assessment: 10:30 Reassessment: PT STATES FELL MONDAY. TOOK TYLENOL AT HOME. STATES FELL BACK AND HIT db MIDDLE OF BACK. COMPLAINS OF MORE LEFT SIDE BACK PAIN AND RIGHT LOWER LEG PAIN. NOTED BRUISING. DENIES HITTING HEAD. DENIES LOC. 10:47 Reassessment: Patient appears in no apparent distress at this time. PT TO CT. db 12:40 Reassessment: Patient appears in no apparent distress at this time. Patient and/or db family updated on plan of care and expected duration. Pain level reassessed. Patient is alert, oriented x 3, equal unlabored respirations, skin warm/dry/pink. PATIENT ASSISTED TO RESTROOM VIA WHEELCHAIR. BACK BRACE APPLIED TO PATIENT. 13:26 Reassessment: Patient appears in no apparent distress at this time. Patient and/or db family updated on plan of care and expected duration. Pain level reassessed. Patient is alert, oriented x 3, equal unlabored respirations, skin warm/dry/pink. pt is resting. Vital Signs: 10:27 BP 210 / 67; Pulse 65; Resp 16; Temp 99; Pulse Ox 100% ; Weight 60 kg; Pain 9/10; db 11:13 BP 194 / 70; Pulse 68; Resp 18; Pulse Ox 99% on R/A; ph 12:30 BP 202 / 72; Pulse 69; Resp 18; Pulse Ox 99% on R/A; db 13:00 BP 206 / 68; Pulse 66; Resp 18; Pulse Ox 99% on R/A; iw 13:26 BP 201 / 69; Pulse 70; Resp 18; Pulse Ox 98% on R/A; db 14:26 BP 134 / 67; Pulse 74; Resp 18; Pulse Ox 100% on R/A; mb9 10:27 Pain Scale: Adult db ED Course: 10:21 Patient arrived in ED. am2 10:21 Matty Hicks DO is Private Physician. am2 10:22 Amanda Leos MD is Attending Physician. sd2 10:29 Arm band placed on Patient placed in an exam room, on a stretcher. ll1 10:30 Triage completed. ll1 10:42 Catalina Olguin, RN is Primary Nurse. db 10:48 CT Lumbar Spine Wo Con In Process Unspecified. EDMS 13:38 Report received from CHAPIS Arnold. mb9 14:12 Matty Hicks DO is Referral Physician. sd2 Administered Medications: 11:00 Drug: Ketorolac IM 30 mg Route: IM; Site: left ventrogluteal; db 15:03 Follow up: Response: No adverse reaction ll1 11:00 Drug: Methocarbamol PO 500 mg Route: PO; db 15:03 Follow up: Response: No adverse reaction ll1 11:00 Drug: Lidoderm Topical Patch 5 % (700 mg/patch) 1 patches {Note: LEFT LOWER BACK.} db Route: Topical; Site: affected area; 13:05 Drug: cloNIDine PO 0.1 mg Route: PO; iw 15:03 Follow up: Response: No adverse reaction ll1 Outcome: 14:12 Discharge ordered by . sd2 15:03 Patient left the ED. ll1 Signatures: Dispatcher [employer] Kelly Flowers, RN CHAPIS Ania Snider, RN Victoria Easton ph am2 Vaughn Daniel RN RN ll1 Amanda Leos MD MD sd2 Catalina Olguin, RN Ngozi Guerrero RN RN mb9
[2022-12-15 15:40] VITALS: TEMP 99
[2022-12-15 15:48] VITALS: BP 134/67; O2SAT 100
== END 2022-12-15 15:03 | disposition home or self-care (01) ==
LOC: ER 10:20
DX: S32.019A Unspecified fracture of first lumbar vertebra, initial encounter for closed fracture (principal); I10 Essential (primary) hypertension; Z88.0 Allergy status to penicillin
CPT/HCPCS: 72131; 96372; 99284; J2001

== ENCOUNTER 2023-04-17 15:56 | Emergency (ER) | payer OTHER ==
--- OUTSIDE RECORDS SUMMARY | 2023-04-17 16:02 | XMS REPORT | Continuity of Care Document ---
:1945 Author Organization [facility] t Address [address] [facility] [address] [place] [address] Care Team Providers Name Role Phone Matty Hicks Attending Clinician Unavailable Zachary Mckeon Attending Clinician Unavailable Jordin Porter Attending Clinician oNe Peter Admitting Clinician Unavailable Payers Payer Name Policy Type Policy Number Effective Date Expiration Date S lucinda [facility] 53 [id number] 2021 Common Spiri t Advantage 00:[facility] Problems Condition Condition Condition Status Onset Resolution Last Treating Co mments Source Name Details Category Date Date Treatment Clinician Date Peripheral PAD Problem Commo n vascular (periphera Spir it disease l artery - CHI disease) [facility] Amnesia Memory Problem Common changes [facility] 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 Spir it type 2 mellitus - [facility] diabetes with St mellitus hyperglyce ke s alpa, Medical unspecifie Center d whether care home insulin use [id number] L4-L5 disc Problem Co mmon bulge [facility] [id number] 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 [facility] [id number] Hypertrigl Problem Co mmon yceridemia [facility] Essential Essential Problem Com mon hypertensi hypertensi Sp carmen on on - CHI [facility] [id number] Chronic Problem Common Idiopathic Spirit Constipati - CHI on [facility] [id number] 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 - [facility]I with [facility] Center long-term current use of insulin [id number] Type 2 Problem [place] [id number] diabetes Spirit mellitus - [facility]I with other [facility] kidney Medical complicati Center on Allergies, Adverse Reactions, Alerts Allergy Allergy Status Severity Reaction(s) Onset Inactive Treating Comm ents Source Name Type Date Date Clinician [place] DA Active SV RASH [facility] ins 11-04 Clear 00:00: Wright 00 [facility] [id number] Drug Active rash Common 85 allergy [facility] Social History Social Habit Start Date Stop Date Quantity Comments Source History of Tobacco Use Co mmon [facility] Sex Assigned At Com mon [facility] Smoking Status Start Date Stop Date Source Never Smoker Common [facility] Medications Ordered Filled Start Stop Current Ordering Indication Dosage Frequency Signature Comments Components Source Medication Medication Date Date Medication? Clinician (SIG) Name Name traMADol traMADol No 1{table traMADol HCl 50 MG HCl 50 MG 7-28 t_as_ne HCl 50 MG 00:00: eded} 00 traMADol traMADol No 1{table traMADol HCl 50 MG HCl 50 MG 7-28 t_as_ne HCl 50 MG 00:00: eded} traMADol traMADol No 1{table traMADol HCl 50 MG HCl 50 MG 7-28 t_as_ne HCl 50 MG 00:00: eded} 00 traMADol traMADol No 1{table traMADol HCl 50 MG HCl 50 MG 7-28 t_as_ne HCl 50 MG 00:00: eded} 00 traMADol traMADol No 1{table traMADol HCl 50 MG HCl 50 MG 7-28 t_as_ne HCl 50 MG 00:00: eded} 00 Ferrous Ferrous No 1{table BID Ferrous Sulfate 325 Sulfate 325 5-11 t} Sulfate (65 Fe) MG (65 Fe) MG 00:00: 325 (65 00 Fe) MG One Touch One Touch 2022-0 No BID One Touch test strips test strips 2-20 test test strips test strips 00:00: strips 00 test strips One Touch One Touch 2022-0 No BID One Touch test strips test strips 2-20 test test strips test strips 00:00: strips 00 test strips One Touch One Touch 0 No BID One Touch test strips test strips 2-20 test test strips test strips 00:00: strips 00 test strips One Touch One Touch 2022-0 No BID One Touch test strips test strips 2-20 test test strips test strips 00:00: strips 00 test strips One Touch One Touch 0 No BID One Touch test strips test strips 2-20 test test strips test strips 00:00: strips 00 test strips One Touch One Touch 2022-0 No BID One Touch test strips test strips 2-20 test test strips test strips 00:00: strips 00 test strips True Metrix True Metrix 2022-0 No QD True Blood Blood 2-17 Metrix Glucose Glucose 00:00: Blood Test - Test - 00 Glucose Test - True Metrix True Metrix 2022-0 No QD True Blood Blood 2-17 Metrix Glucose Glucose 00:00: Blood Test - Test - 00 Glucose Test - True Metrix True Metrix 3-0 No QD True Blood Blood 2-17 Metrix Glucose Glucose 00:00: Blood Test - Test - 00 Glucose Test - True Metrix True Metrix 3-0 No QD True Blood Blood 2-17 Metrix Glucose Glucose 00:00: Blood Test - Test - 00 Glucose Test - True Metrix True Metrix 3-0 No QD True Blood Blood 2-17 Metrix Glucose Glucose 00:00: Blood Test - Test - 00 Glucose Test - True Metrix True Metrix 3-0 No QD True Blood Blood 2-17 Metrix Glucose Glucose 00:00: Blood Test - Test - 00 Glucose Test - Triamcinolo Triamcinolo 3-0 No 1{appli BID Triamcinol ne ne 1-03 cation} one Acetonide Acetonide 00:00: Acetonide 0.1 % 0.1 % 00 0.1 % Triamcinolo Triamcinolo 3-0 No 1{appli BID Triamcinol ne ne 1-03 [...] 10-12.5 MG 00:00: 10-12.5 MG 00 Pen [place] Pen [place] 2021-0 No Pen 31G X 5 MM 31G X 5 MM 4-06 [place] 00:00: 31G X 5 MM 00 Pen [place] Pen [place] 2021-0 No Pen 31G X 5 MM 31G X 5 MM 4-06 [place] 00:00: 31G X 5 MM 00 Pen [place] Pen [place] 2021-0 No Pen 31G X 5 MM 31G X 5 MM 4-06 [place] 00:00: 31G X 5 MM 00 Pen [place] Pen [place] 2021-0 No Pen 31G X 5 MM 31G X 5 MM 4-06 [place] 00:00: 31G X 5 MM 00 Pen [place] Pen [place] 2022-0 No Pen 31G X 5 MM 31G X 5 MM 4-06 [place] 00:00: 31G X 5 MM 00 Pen [place] Pen [place] 2022-0 No Pen 31G X 5 MM 31G X 5 MM 4-06 [place] 00:00: 31G X 5 MM 00 Pen [place] Pen [place] 2022-0 No Pen 31G X 5 MM 31G X 5 MM 4-06 [place] 00:00: 31G X 5 MM 00 Pen [place] Pen [place] 2022-0 No Pen 31G X 5 MM 31G X 5 MM 4-06 [place] 00:00: 31G X 5 MM 00 Pen [place] Pen [place] 2022-0 No Pen 31G X 5 MM 31G X 5 MM 4-06 [place] 00:00: 31G X 5 MM 00 Pen [place] Pen [place] 2022-0 No Pen 31G X 5 MM 31G X 5 MM 4-06 [place] 00:00: 31G X 5 MM 00 Pen [place] Pen [place] 2022-0 No Pen 31G X 5 MM 31G X 5 MM 4-06 [place] 00:00: 31G X 5 MM 00 Pen [place] Pen [place] 2022-0 No Pen 31G X 5 MM 31G X 5 MM 4-06 [place] 00:00: 31G X 5 MM 00 Pen [place] Pen [place] 2022-0 No Pen 31G X 5 MM 31G X 5 MM 4-06 [place] 00:00: 31G X 5 MM 00 Pen [place] Pen [place] 2022-0 No Pen 31G X 5 MM 31G X 5 MM 4-06 [place] 00:00: 31G X 5 MM 00 Pen [place] Pen [place] 2022-0 No Pen 31G X 5 MM 31G X 5 MM 4-06 [place] 00:00: 31G X 5 MM 00 Pen [place] Pen [place] 2022-0 No Pen 31G X 5 MM 31G X 5 MM 4-06 [place] 00:00: 31G X 5 MM 00 Pen [place] Pen [place] 2022-0 No Pen 31G X 5 MM 31G X 5 MM 4-06 [place] 00:00: 31G X 5 MM 00 Pen [place] Pen [place] 2022-0 No Pen 31G X 5 MM 31G X 5 MM 4-06 [place] 00:00: 31G X 5 MM 00 Pen [place] Pen [place] 2022-0 No Pen 31G X 5 MM 31G X 5 MM 09-08 [place] 00:00: 31G X 5 MM 00 Pen [place] Pen [place] No Pen 31G X 5 MM 31G X 5 MM 09-08 [place] 00:00: 31G X 5 MM 00 Pen [place] Pen [place] No Pen 31G X 5 MM 31G X 5 MM 09-08 [place] 00:00: 31G X 5 MM 00 Ozempic (1 Ozempic (1 2020- No Matty Inject 1 Common MG/DOSE) MG/DOSE) 818 12-15 Hicks mg Spiri t 00:00: 00:00 - [facility]I 00 :00 [facility] Losartan Losartan Yes Matty 1 tablet Common Potassium Potassium 6 Hicks Spir it 00:00: - CHI 00 [facility] Aspir-Low Aspir-Low Yes Matty 1 tablet Common Hicks Spirit - [facility] Docusate Docusate Yes Matty 1 tablet C ommon Sodium Sodium Hicks as needed Spiri t - CHI [facility] Combigan Combigan Yes Matty 1 drop Com mon Hicks into Spirit affected - CHI eye [facility] Azopt Azopt Yes Matty 1 drop Common Hicks into Spirit affected - CHI eye [facility] Amitiza Amitiza Yes Matty 1 capsule Co mmon Hicks with food Spirit and water - CHI [facility] Lumigan Lumigan Yes Matty 1 drop Commo n Hicks into Spirit affected - CHI eye in the [facility] Glimepiride Glimepiride Yes Matty 1 tablet Common Hicks with Spirit breakfast - CHI or the [facility] meal of Medical the day [place] Carvedilol Carvedilol Yes Matty TOME OBDULIA Common Hicks TABLETA Spirit DOS VECES - CHI AL D A CON [facility] Pravastatin Pravastatin Yes Matty TOME OBDULIA Common Sodium Sodium Hicks TABLETA Spirit [facility] Metformin Metformin Yes Matty 1 tablet Common HCl HCl Hicks with meals Spirit [facility] Losartan Losartan Yes Matty TOME OBDULIA C ommon Potassium Potassium Hicks [facility] Glimepiride Glimepiride Yes Matty 1 TABLET Common Hicks WITH Spirit BREAKFAST - [facility] MEAL OF Medical THE DAY Center TWICE A DAY ORALLY 90 DAYS Amitiza Amitiza Yes Matty TOME 1 Commo n Hicks CAPSULA Spirit POR VIA - [facility]I ORAL DOS [facility] VECES AL [facility] KARLA WITH Medical FOOD AND Center WATER [...] meals} MG Acetaminoph Acetaminoph No Acetaminop en-Codeine en-Codedawson Lugo #3 #3 e #3 Aspir-Low Aspir-Low No [...] 0.01 % 0.01 % into_af fected_ eye_in_ the_eve nathaly} Metformin Metformin No 1{table BID HCl 1000 [...] t_main_ meal_of _the_da y} Metformin Metformin No Metformin HCl 1000 MG [...] 0.01 % into_af 0.01 % fected_ eye_in_ the_evemilia castillog} Metformin Metformin No 1{table BID Metformin HCl [...] fected_ eye_in_ the_eve nathaly} Metformin Metformin No Metformin HCl 1000 MG [...] MG t} 81 MG Glimepiride Glimepiride No BID Glimepirid 2 MG 2 MG e 2 MG Ozempic (1 Ozempic (1 No Ozempic (1 MG/DOSE) 2 MG/DOSE) 2 MG/DOSE) 2 MG/1.5ML MG/1.5ML MG/1.5ML Metformin Metformin No 1{table BID Metformin HCl 1000 MG HCl 1000 MG t_with_ HCl 1000 meals} MG Glimepiride Glimepiride No Glimepirid 1 MG 1 MG e 1 MG Ferrous Ferrous No 1{table BID Ferrous Sulfate 325 Sulfate 325 t} Sulfate (65 Fe) MG (65 Fe) MG 325 (65 Fe) MG Triamcinolo Triamcinolo No Triamcinol ne ne one Acetonide Acetonide Acetonide 0.1 % 0.1 % 0.1 % Ferrous Ferrous No Ferrous Sulfate 325 Sulfate 325 Sulfate (65 Fe) MG (65 Fe) MG 325 (65 Fe) MG Lumigan Lumigan No 1{drop_ QD Lumigan 0.01 % 0.01 % into_af 0.01 % fected_ eye_in_ the_eve nathaly} Pravastatin Pravastatin No 1{table QD Pravastati Sodium 40 Sodium 40 t} n Sodium MG MG 40 MG Combigan Combigan No 1{drop_ BID Combigan 0.2-0.5 % 0.2-0.5 % into_af 0.2-0.5 % fected_ eye} traMADol traMADol No 1{table traMADol HCl 50 MG HCl 50 MG t_as_ne HCl 50 MG eded} Azopt 1 % Azopt 1 % No 1{drop_ TID Azopt 1 % into_af fected_ eye} Losartan Losartan No QD Losartan Potassium Potassium Potassium 100 MG 100 MG 100 MG Lisinopril- Lisinopril- No Lisinopril hydroCHLORO hydroCHLORO -hydroCHLO thiazide thiazide ROthiazide 10-12.5 MG 10-12.5 MG 10-12.5 MG Docusate Docusate No 1{table BID Docusate Sodium 100 Sodium 100 t_as_ne Sodium 100 MG MG eded} MG Lubiproston Lubiproston No Lubiprosto e 24 MCG e 24 MCG ne 24 MCG Amitiza 24 Amitiza 24 No BID Amitiza 24 MCG MCG MCG Aspir-Low Aspir-Low No 1{table QD Aspir-Low 81 MG 81 MG t} 81 MG Glimepiride Glimepiride No BID Glimepirid 2 MG 2 MG e 2 MG Ozempic (1 Ozempic (1 No Ozempic (1 MG/DOSE) 2 MG/DOSE) 2 MG/DOSE) 2 MG/1.5ML MG/1.5ML MG/1.5ML Metformin Metformin No 1{table BID Metformin HCl 1000 MG HCl 1000 MG t_with_ HCl 1000 meals} MG Glimepiride Glimepiride No Glimepirid 1 MG 1 MG e 1 MG Ferrous Ferrous No 1{table BID Ferrous Sulfate 325 Sulfate 325 t} Sulfate (65 Fe) MG (65 Fe) MG 325 (65 Fe) MG Triamcinolo Triamcinolo No Triamcinol ne ne one Acetonide Acetonide Acetonide 0.1 % 0.1 % 0.1 % Ferrous Ferrous No Ferrous Sulfate 325 Sulfate 325 Sulfate (65 Fe) MG (65 Fe) MG 325 (65 Fe) MG Lumigan Lumigan No 1{drop_ QD Lumigan 0.01 % 0.01 % into_af 0.01 % fected_ eye_in_ the_eve nathaly} Pravastatin Pravastatin No 1{table QD Pravastati Sodium 40 Sodium 40 t} n Sodium MG MG 40 MG Combigan Combigan No 1{drop_ BID Combigan 0.2-0.5 % 0.2-0.5 % into_af 0.2-0.5 % fected_ eye} traMADol traMADol No 1{table traMADol HCl 50 MG HCl 50 MG t_as_ne HCl 50 MG eded} Azopt 1 % Azopt 1 % No 1{drop_ TID Azopt 1 % into_af fected_ eye} Losartan Losartan No QD Losartan Potassium Potassium Potassium 100 MG 100 MG 100 MG Lisinopril- Lisinopril- No Lisinopril hydroCHLORO hydroCHLORO -hydroCHLO thiazide thiazide ROthiazide 10-12.5 MG 10-12.5 MG 10-12.5 MG Docusate Docusate No 1{table BID Docusate Sodium 100 Sodium 100 t_as_ne Sodium 100 MG MG eded} MG Lubiproston Lubiproston No Lubiprosto e 24 MCG e 24 MCG ne 24 MCG Amitiza 24 Amitiza 24 No BID Amitiza 24 MCG MCG MCG Aspir-Low Aspir-Low No 1{table QD Aspir-Low 81 MG 81 MG t} 81 MG Glimepiride Glimepiride No BID Glimepirid 2 MG 2 MG e 2 MG Ozempic (1 Ozempic (1 No Ozempic (1 MG/DOSE) 2 MG/DOSE) 2 MG/DOSE) 2 MG/1.5ML MG/1.5ML MG/1.5ML Metformin Metformin No 1{table BID Metformin HCl 1000 MG HCl 1000 MG t_with_ HCl 1000 meals} MG Glimepiride Glimepiride No Glimepirid 1 MG 1 MG e 1 MG Ferrous Ferrous No 1{table BID Ferrous Sulfate 325 Sulfate 325 t} Sulfate (65 Fe) MG (65 Fe) MG 325 (65 Fe) MG Triamcinolo Triamcinolo No Triamcinol ne ne one Acetonide Acetonide Acetonide 0.1 % 0.1 % 0.1 % Ferrous Ferrous No Ferrous Sulfate 325 Sulfate 325 Sulfate (65 Fe) MG (65 Fe) MG 325 (65 Fe) MG Lumigan Lumigan No 1{drop_ QD Lumigan 0.01 % 0.01 % into_af 0.01 % fected_ eye_in_ the_eve nathaly} Pravastatin Pravastatin No 1{table QD Pravastati Sodium 40 Sodium 40 t} n Sodium MG MG 40 MG Combigan Combigan No 1{drop_ BID Combigan 0.2-0.5 % 0.2-0.5 % into_af 0.2-0.5 % fected_ eye} traMADol traMADol No 1{table traMADol HCl 50 MG HCl 50 MG t_as_ne HCl 50 MG eded} Azopt 1 % Azopt 1 % No 1{drop_ TID Azopt 1 % into_af fected_ eye} Losartan Losartan No QD Losartan Potassium Potassium Potassium 100 MG 100 MG 100 MG Lisinopril- Lisinopril- No Lisinopril hydroCHLORO hydroCHLORO -hydroCHLO thiazide thiazide ROthiazide 10-12.5 MG 10-12.5 MG 10-12.5 MG Docusate Docusate No 1{table BID Docusate Sodium 100 Sodium 100 t_as_ne Sodium 100 MG MG eded} MG Lubiproston Lubiproston No Lubiprosto e 24 MCG e 24 MCG ne 24 MCG Amitiza 24 Amitiza 24 No BID Amitiza 24 MCG MCG MCG Aspir-Low Aspir-Low No 1{table QD Aspir-Low 81 MG 81 MG t} 81 MG Glimepiride Glimepiride No BID Glimepirid 2 MG 2 MG e 2 MG Ozempic (1 Ozempic (1 No Ozempic (1 MG/DOSE) 2 MG/DOSE) 2 MG/DOSE) 2 MG/1.5ML MG/1.5ML MG/1.5ML Metformin Metformin No 1{table BID Metformin HCl 1000 MG HCl 1000 MG t_with_ HCl 1000 meals} MG Glimepiride Glimepiride No Glimepirid 1 MG 1 MG e 1 MG Ferrous Ferrous No 1{table BID Ferrous Sulfate 325 Sulfate 325 t} Sulfate (65 Fe) MG (65 Fe) MG 325 (65 Fe) MG Triamcinolo Triamcinolo No Triamcinol ne ne one Acetonide Acetonide Acetonide 0.1 % 0.1 % 0.1 % Ferrous Ferrous No Ferrous Sulfate 325 Sulfate 325 Sulfate (65 Fe) MG (65 Fe) MG 325 (65 Fe) MG Lumigan Lumigan No 1{drop_ QD Lumigan 0.01 % 0.01 % into_af 0.01 % fected_ eye_in_ the_eve nathaly} Pravastatin Pravastatin No 1{table QD Pravastati Sodium 40 Sodium 40 t} n Sodium MG MG 40 MG Combigan Combigan No 1{drop_ BID Combigan 0.2-0.5 % 0.2-0.5 % into_af 0.2-0.5 % fected_ eye} traMADol traMADol No 1{table traMADol HCl 50 MG HCl 50 MG t_as_ne HCl 50 MG eded} Azopt 1 % Azopt 1 % No 1{drop_ TID Azopt 1 % into_af fected_ eye} Losartan Losartan No QD Losartan Potassium Potassium Potassium 100 MG 100 MG 100 MG Lisinopril- Lisinopril- No Lisinopril hydroCHLORO hydroCHLORO -hydroCHLO thiazide thiazide ROthiazide 10-12.5 MG 10-12.5 MG 10-12.5 MG Docusate Docusate No 1{table BID Docusate Sodium 100 Sodium 100 t_as_ne Sodium 100 MG MG eded} MG [place]iproston Lubiproston No Lubiprosto e 24 MCG e 24 MCG ne 24 MCG Amitiza 24 Amitiza 24 No BID Amitiza 24 MCG MCG MCG Aspir-Low Aspir-Low No 1{table QD Aspir-Low 81 MG 81 MG t} 81 MG Glimepiride Glimepiride No BID Glimepirid 2 MG 2 MG e 2 MG Ozempic (1 Ozempic (1 No Ozempic (1 MG/DOSE) 2 MG/DOSE) 2 MG/DOSE) 2 MG/1.5ML MG/1.5ML MG/1.5ML Metformin Metformin No 1{table BID Metformin HCl 1000 MG HCl 1000 MG t_with_ HCl 1000 meals} MG Glimepiride Glimepiride No Glimepirid 1 MG 1 MG e 1 MG Ferrous Ferrous No 1{table BID Ferrous Sulfate 325 Sulfate 325 t} Sulfate (65 Fe) MG (65 Fe) MG 325 (65 Fe) MG Triamcinolo Triamcinolo No Triamcinol ne ne one Acetonide Acetonide Acetonide 0.1 % 0.1 % 0.1 % Ferrous Ferrous No Ferrous Sulfate 325 Sulfate 325 Sulfate (65 Fe) MG (65 Fe) MG 325 (65 Fe) MG Lumigan Lumigan No 1{drop_ QD Lumigan 0.01 % 0.01 % into_af 0.01 % fected_ eye_in_ the_eve nathaly} Pravastatin Pravastatin No 1{table QD Pravastati Sodium 40 Sodium 40 t} n Sodium MG MG 40 MG Combigan Combigan No 1{drop_ BID Combigan 0.2-0.5 % 0.2-0.5 % into_af 0.2-0.5 % fected_ eye} traMADol traMADol No 1{table traMADol HCl 50 MG HCl 50 MG t_as_ne HCl 50 MG eded} Azopt 1 % Azopt 1 % No 1{drop_ TID Azopt 1 % into_af fected_ eye} Losartan Losartan No QD Losartan Potassium Potassium Potassium 100 MG 100 MG 100 MG Lisinopril- Lisinopril- No Lisinopril hydroCHLORO hydroCHLORO -hydroCHLO thiazide thiazide ROthiazide 10-12.5 MG 10-12.5 MG 10-12.5 MG Docusate Docusate No 1{table BID Docusate Sodium 100 Sodium 100 t_as_ne Sodium 100 MG MG eded} MG Lubiproston Lubiproston No Lubiprosto e 24 MCG e 24 MCG ne 24 MCG Amitiza 24 Amitiza 24 No BID Amitiza 24 MCG MCG MCG Pravastatin Pravastatin No Pravastati Sodium 40 Sodium 40 n Sodium MG MG 40 MG Docusate Docusate No 1{table BID Docusate Sodium 100 Sodium 100 t_as_ne Sodium 100 MG MG eded} MG Amitiza 24 Amitiza 24 No BID Amitiza 24 MCG MCG MCG Azopt 1 % Azopt 1 % No 1{drop_ TID Azopt 1 % into_af fected_ eye} Ozempic (1 Ozempic (1 2021- No Ozempic (1 MG/DOSE) 2 MG/DOSE) 2 07-20 MG/DOSE) 2 MG/1.5ML MG/1.5ML 00:00 MG/1.5ML :00 Ozempic (1 Ozempic (1 2021- No Ozempic (1 MG/DOSE) 2 MG/DOSE) 2 07-20 MG/DOSE) 2 MG/1.5ML MG/1.5ML 00:00 MG/1.5ML :00 Ozempic (1 Ozempic (1 2021- No Ozempic (1 MG/DOSE) 2 MG/DOSE) 2 07-20 MG/DOSE) 2 MG/1.5ML MG/1.5ML 00:00 MG/1.5ML :00 Ozempic Ozempic 2020- No Matty Inject 0.5 Common 0818 Hicks mg SC once Spirit 00:00 weekly - CHI : [facility] Vital Signs Vital Name Observation Time Observation Value Comments Source height 2022-08-15 08:00:00 62 [in_i] [facility] weight 2022-08-15 08:00:00 161.4 [lb_av] Common [facility] temperature 2022-08-15 08:00:00 95.8 [degF] [facility] bmi 2022-08-15 08:00:00 29.52 kg/m2 [facility] oximetry 2022-08-15 08:00:00 98 % [facility] respiratory rate 2022-08-15 08:00:00 18 /min Comm on [facility] blood pressure 2022-08-15 08:00:00 115 mm[Hg] [facility] blood pressure 2022-08-15 08:00:00 62 mm[Hg] Common [facility] - diastolic [facility] height 2022-07-14 14:10:00 62 [in_i] Common S pirit [facility] weight 2022-07-14 14:10:00 134.1 [lb_av] [facility] temperature 2022-07-14 14:10:00 97.2 [degF] Common S pirit - [facility] bmi 2022-07-14 14:10:00 24.52 kg/m2 Common S pirit [facility] oximetry 2022-07-14 14:10:00 99 % Common S pirit [facility] respiratory rate 2022-07-14 14:10:00 18 /min Comm on [facility] blood pressure 2022-07-14 14:10:00 117 mm[Hg] Common [facility] - systolic [facility] blood pressure 2022-07-14 14:10:00 63 mm[Hg] Common Spirit - diastolic [facility] height 2022-07-14 14:30:00 62 [in_i] [facility]14 14:30:00 134.1 [lb_av] [facility] temperature 2022-07-14 14:30:00 97.2 [degF] Common S pirit [facility] bmi 2022-07-14 14:30:00 24.52 kg/m2 Common S pirit [facility] oximetry 2022-07-14 14:30:00 99 % Common S pirit [facility] respiratory rate 2022-07-14 14:30:00 18 /min Comm on [facility] blood pressure 2022-07-14 14:30:00 117 mm[Hg] Common [facility] - systolic [facility] blood pressure 2022-07-14 14:30:00 63 mm[Hg] Common [facility] - diastolic [facility] height 2022-06-07 09:40:00 62 [in_i] Common S pirit [facility] weight 2022-06-07 09:40:00 137.0 [lb_av] Common [facility] temperature 2022-06-07 09:40:00 97.2 [degF] Common [facility] bmi 2022-06-07 09:40:00 25.05 kg/m2 Common [facility] oximetry 2022-06-07 09:40:00 97 % Common S [facility] respiratory rate 2022-06-07 09:40:00 16 /min Comm on [facility] blood pressure 2022-06-07 09:40:00 138 mm[Hg] Common [facility] - systolic [facility] blood pressure 2022-06-07 09:40:00 70 mm[Hg] Common [facility] - diastolic [facility] height 2022-03-24 09:40:00 62 [in_i] Common [facility] weight 2022-03-24 09:40:00 135 [lb_av] Common [facility] temperature 2022-03-24 09:40:00 97.1 [degF] Common S [facility] bmi 2022-03-24 09:40:00 24.69 kg/m2 [facility] oximetry 2022-03-24 09:40:00 99 % Common [facility] respiratory rate 2022-03-24 09:40:00 17 /min Comm on [facility] blood pressure 2022-03-24 09:40:00 138 mm[Hg] Common [facility] - systolic [facility] blood pressure 2022-03-24 09:40:00 75 mm[Hg] Common Spirit - diastolic [facility] height 2021-12-22 14:20:00 62 [in_i] Common [facility] weight 2021-12-22 14:20:00 135 [lb_av] Common [facility] temperature 2021-12-22 14:20:00 97.6 [degF] Common S pirit [facility] bmi 2021-12-22 14:20:00 24.69 kg/m2 Common S [facility] oximetry 2021-12-22 14:20:00 100 % [facility] respiratory rate 2021-12-22 14:20:00 16 /min Comm on [facility] blood pressure 2021-12-22 14:20:00 137 mm[Hg] Common [facility] - systolic [facility] blood pressure 2021-12-22 14:20:00 80 mm[Hg] Common [facility] - diastolic [facility] height 2021-10-27 11:40:00 62 [in_i] Common [facility] weight 2021-10-27 11:40:00 134.5 [lb_av] [facility] temperature 2021-10-27 11:40:00 97.7 [degF] Common [facility] bmi 2021-10-27 11:40:00 24.6 kg/m2 [facility] oximetry 2021-10-27 11:40:00 100 % [facility] respiratory rate 2021-10-27 11:40:00 18 /min Comm on [facility] blood pressure 2021-10-27 11:40:00 133 mm[Hg] Common [facility] - systolic [facility] blood pressure 2021-10-27 11:40:00 69 mm[Hg] Common [facility] - diastolic [facility] height 2021-07-29 10:50:00 62 [in_i] Common [facility] weight 2021-07-29 10:50:00 139.0 [lb_av] [facility] temperature 2021-07-29 10:50:00 97.5 [degF] Common [facility] bmi 2021-07-29 10:50:00 25.42 kg/m2 Common [facility] oximetry 2021-07-29 10:50:00 99 % Common S pirit [facility] respiratory rate 2021-07-29 10:50:00 17 /min Comm on [facility] blood pressure 2021-07-29 10:50:00 138 mm[Hg] Common [facility] - systolic [facility] blood pressure 2021-07-29 10:50:00 76 mm[Hg] Common Spirit - diastolic [facility] height 2021-07-29 11:10:00 62 [in_i] Common [facility] [place] [facility] 2021-07-29 11:10:00 139.0 [lb_av] [facility] temperature 2021-07-29 11:10:00 97.5 [degF] Common [facility] bmi 2021-07-29 11:10:00 25.42 kg/m2 [facility] oximetry 2021-07-29 11:10:00 99 % Common [facility] respiratory rate 2021-07-29 11:10:00 17 /min Comm on [facility] blood pressure 2021-07-29 11:10:00 138 mm[Hg] Common [facility] - systolic [facility] blood pressure 2021-07-29 11:10:00 76 mm[Hg] [facility] height 2021-04-19 15:00:00 62 [in_i] Common [facility] weight 2021-04-19 15:00:00 140.3 [lb_av] Common [facility] temperature 2021-04-19 15:00:00 97.5 [degF] [facility] bmi 2021-04-19 15:00:00 25.66 kg/m2 Common [facility] blood pressure 2021-04-19 15:00:00 122 mm[Hg] Common [facility] - systolic [facility] blood pressure 2021-04-19 15:00:00 74 mm[Hg] [facility] - [facility] height 2021-01-14 08:30:00 62 [in_i] Common S [facility]irit - [facility] weight 2021-01-14 08:30:00 135.2 [lb_av] [facility] temperature 2021-01-14 08:30:00 97.3 [degF] Common S [facility]irit - [facility] bmi 2021-01-14 08:30:00 24.73 kg/m2 Common S pirit - [facility] blood pressure 2021-01-14 08:30:00 144 mm[Hg] [facility] - systolic [facility] blood pressure 2021-01-14 08:30:00 72 mm[Hg] [facility] diastolic [facility] height 2020-12-30 10:00:00 62 [in_i] Common S [facility]irit - [facility] weight 2020-12-30 10:00:00 139 [lb_av] Common S [facility] - [facility] temperature 2020-12-30 10:00:00 98 [degF] Common S pirit [facility] bmi 2020-12-30 10:00:00 25.42 kg/m2 Common S pirit [facility] blood pressure 2020-12-30 10:00:00 133 mm[Hg] [facility] - systolic [facility] blood pressure 2020-12-30 10:00:00 74 mm[Hg] [facility] - diastolic [facility] Procedures This patient has no known procedures. Encounters Start End Encounter Admission Attending Care Care Encounter Source Date/Time Date/Time Type Type Clinicians Facility Department ID 2022-12-20 Outpatient Hicks, STLMLC STLC [id number] Common 14:06:00 Matty [id number] [facility] 2022-07-13 Outpatient Hicks, STLMLC STLC [id number] Common 08:25:01 Matty [id number] [facility] 2022-06-07 Outpatient Hicks, STLMLC STLMLC [id number] Common 07:30:00 Matty [id number] [facility] 2022-03-22 Outpatient Hicks, STLMLC STLC Common 10:00:01 Matty [facility] 2021-08-24 Outpatient Hicks, STLMLC STLMLC Common 10:52:00 Matty [facility] 2021-07-29 Outpatient Hicks, STLMLC STLMLC Common 10:45:02 Matty [facility] 2021-07-19 Outpatient Hicks, STLMLC STLMLC Common 09:21:01 Matty [facility] 2021-06-30 Outpatient Hicks, STLMLC STLMLC Common 13:58:19 Matty [id number] [facility] 2021-06-30 Outpatient Hicks, STLMLC STLMLC Common 13:54:12 Matty 46916 [facility] 2021-06-30 Outpatient Hicks, STLMLC STLMLC Common 13:31:28 Matty 47328 [facility] 2021-06-30 Outpatient Hicks, STLMLC STLMLC Common 13:08:27 Matty [id number] [facility] 2021-06-30 Outpatient Hicks, STLMLC STLMLC Common 13:07:24 Matty [id number] [facility] 2021-06-30 Outpatient Hicks, STLMLC STLMLC Common 12:56:09 Matty [id number] [facility] 2021-06-30 Outpatient Hicks, STLMLC STLMLC Common 12:44:05 Matty 86575 [facility] 2021-06-30 Outpatient Hicks, STLMLC STLMLC Common 12:42:02 Matty 25709 [facility] 2021-06-30 Outpatient Hicks, STLMLC STLMLC Common 12:38:51 Matty 17658 [facility] 2021-06-30 Outpatient Hicks, STLMLC STLMLC [id number] Common 11:46:35 Matty 40727 [facility] 2021-06-30 Outpatient Hicks, STLMLC STLMLC [id number] Common 11:27:38 Matty [id number] [facility] 2021-06-30 Outpatient Hicks, STLMLC STLMLC [id number] Common 11:21:26 Matty 68998 [facility] 2021-06-30 Outpatient Hicks, STLMLC STLMLC Common 11:14:30 Matty [id number] [facility] 2021-06-30 Outpatient Hicks, STLMLC STLC [id number] Common 11:13:17 Matty 77498 [facility] 2022-11-08 2022-11-09 Inpatient MELANI Mckeon, [facility]01 [id number] [facility] 05:44:00 17:31:[address] 2022-09-05 2022-09-05 Ambulatory MHIE MNA [id number] 20:00:00 20:00:00 Pre-Reg Neurology 00 l Lenny Baltazar 2022-09-05 2022-09-05 Outpatient MHIE MHIE [id number] [facility] 15:00:00 15:00:00 00 jesús Baltazar 2022-09-05 2022-09-05 Outpatient LUIS ARMANDO PorterMISCHVARGHESE 014 [id number] 15:00:00 15:00:00 Jordin Donaldson 2022-08-15 2022-08-15 OFFICE STLMLC STLMLC [id number] Co mmon 00:00:00 00:00:00 VISIT [facility] LEVEL 4 [facility] 2022-08-03 2022-08-03 (TEL) STLMLC STLMLC [id number] Co mmon 00:00:00 00:00:00 [facility] 2022-08-03 2022-08-03 (TEL) STLMLC STLMLC [id number] Co mmon 00:00:00 00:00:00 [facility] 2022-07-25 2022-07-25 (TEL) STLMLC STLMLC [id number] Co mmon 00:00:00 00:00:00 [facility] 2022-07-22 2022-07-22 (TEL) STLMLC STLMLC [id number] Co mmon 00:00:00 00:00:00 [facility] 2022-07-14 2022-07-14 OFFICE STLMLC STLMLC [id number] Co mmon 00:00:00 00:00:00 VISIT [facility] ESTAB PT - [facility] LEVEL 4 [facility] 2022-07-14 2022-07-14 SUB ANNUAL STLMLC STLMLC [id number] Common 00:00:00 00:00:00 MCR [facility] WELLNESS - [facility] VISIT [facility] 2022-07-14 2022-07-14 (TEL) STLMLC STLMLC [id number] Co mmon 00:00:00 00:00:00 [facility] 2022-06-07 2022-06-07 OFFICE STLMLC STLMLC [id number] Co mmon 00:00:00 00:00:00 VISIT [facility] ESTAB PT - [facility]I LEVEL 3 [facility] 2022-06-02 2022-06-02 (TEL) STLMLC STLMLC [id number] Co mmon 00:00:00 00:00:00 [facility] 2022-03-24 2022-03-24 OFFICE STLMLC STLMLC [id number] Co mmon 00:00:00 00:00:00 VISIT [facility] ESTAB PT - [facility] LEVEL 4 [facility] 2021-12-22 2021-12-22 OFFICE STLMLC STLMLC [id number] Co mmon 00:00:00 00:00:00 VISIT [facility] ESTAB PT - [facility] LEVEL 4 [facility] 2021-11-05 2021-11-05 (TEL) STLMLC STLMLC [id number] Co mmon 00:00:00 00:00:00 [facility] 2021-11-03 2021-11-03 (TEL) STLMLC STLMLC [id number] Co mmon 00:00:00 00:00:00 [facility] 2021-10-27 2021-10-27 OFFICE STLMLC STLMLC [id number] Co mmon 00:00:00 00:00:00 VISIT [facility] ESTAB PT - CHI LEVEL 4 [facility] 2021-10-22 2021-10-22 (TEL) STLMLC STLMLC [id number] Co mmon 00:00:00 00:00:00 [facility] 2021-10-12 2021-10-12 (TEL) STLMLC STLMLC [id number] Co mmon 00:00:00 00:00:00 [facility] 2021-09-23 2021-09-23 (TEL) STLMLC STLMLC [id number] Co mmon 00:00:00 00:00:00 [facility] 2021-09-08 2021-09-08 (TEL) STLMLC STLMLC [id number] Co mmon 00:00:00 00:00:00 [facility] 2021-09-08 2021-09-08 (TEL) STLMLC STLMLC [id number] Co mmon 00:00:00 00:00:00 [facility] 2021-08-24 2021-08-24 (TEL) STLMLC STLMLC [id number] Co mmon 00:00:00 00:00:00 [facility] 2021-07-29 2021-07-29 OFFICE STLMLC STLMLC [id number] Co mmon 00:00:00 00:00:00 VISIT [facility] PT - CHI LEVEL 4 [facility] 2021-07-29 2021-07-29 SUB ANNUAL STLMLC STLMLC [id number] Common 00:00:00 00:00:00 MCR [facility] - [facility] VISIT [facility] 2021-07-08 2021-07-08 (TEL) STLMLC STLMLC [id number] Co mmon 00:00:00 00:00:00 [facility] 2021-05-06 2021-05-06 (TEL) STLMLC STLMLC [id number] Co mmon 00:00:00 00:00:00 [facility] 2021-04-19 2021-04-19 OFFICE STLMLC STLMLC [id number] Co mmon 00:00:00 00:00:00 VISIT [facility] ESTAB PT - CHI LEVEL 4 [facility] 2021-01-14 2021-01-14 OFFICE STLMLC STLMLC [id number] Co mmon 00:00:00 00:00:00 VISIT EST Spir it PT LEVEL 3 - [facility] 2020-12-30 2020-12-30 OFFICE STLMLC STLMLC [id number] Co mmon 00:00:00 00:00:00 VISIT [facility] ESTAB PT - CHI LEVEL 4 [facility] 2020-12-02 2020-12-02 Outpatient STLMLC STLMLC [id number] Common 00:00:00 00:00:00 [facility] 2020-11-30 2020-11-30 Outpatient STLMLC STLMLC [id number] Common 00:00:00 00:00:00 [facility] 2020-11-30 2020-11-30 Outpatient STLMLC STLMLC [id number] Common 00:00:00 00:00:00 [facility] 2020-11-23 2020-11-23 Outpatient STLMLC STLMLC [id number] Common 00:00:00 00:00:00 [facility] 2020-11-09 2020-11-09 Outpatient STLMLC STLMLC [id number] Common 00:00:00 00:00:00 [facility] 2020-10-27 2020-10-27 Outpatient STLMLC STLMLC [id number] Common 00:00:00 00:00:00 [facility] 2020-10-15 2020-10-15 Outpatient STLMLC STLMLC [id number] Common 00:00:00 00:00:00 [facility] 2020-10-15 2020-10-15 Outpatient STLMLC STLMLC [id number] Common 00:00:00 00:00:00 [facility] 2020-10-12 2020-10-12 Outpatient STLMLC STLMLC [id number] Common 00:00:00 00:00:00 [facility] 2020-09-29 2020-09-29 Outpatient STLMLC STLMLC [id number] Common 00:00:00 00:00:00 [facility] 2020-09-28 2020-09-28 Outpatient STLMLC STLMLC [id number] Common 00:00:00 00:00:00 [facility] 2020-09-23 2020-09-23 Outpatient STLMLC STLMLC [id number] Common 00:00:00 00:00:00 [facility] 2020-08-20 2020-08-20 Outpatient STLMLC STLMLC [id number] Common 00:00:00 00:00:00 [facility] 2020-07-09 2020-07-09 Outpatient STLMLC STLMLC [id number] Common 00:00:00 00:00:00 [facility] 2020-05-25 2020-05-25 Outpatient STLMLC STLMLC [id number] Common 00:00:00 00:00:00 [facility] 2020-05-22 2020-05-22 Outpatient STLMLC STLMLC [id number] Common 00:00:00 00:00:00 [facility] 2020-05-12 2020-05-12 Outpatient STLMLC STLMLC [id number] Common 00:00:00 00:00:00 [facility] 2020-04-22 2020-04-22 Outpatient STLMLC STLMLC [id number] Common 00:00:00 00:00:00 [facility] 2020-03-17 2020-03-17 Outpatient STLMLC STLMLC [id number] Common 00:00:00 00:00:00 [facility] 2020-02-19 2020-02-19 [facility] [id number] Common 14:00:00 14:00:[address] [employer] [facility] 2020-01-21 2020-01-21 [facility] [id number] Common 10:45:00 10:45:[address] [facility] 2020-01-06 2020-01-06 [facility] [id number] Common 16:49:00 16:49:[address] [facility] 2019-12-23 2019-12-23 [facility] [id number] Common 09:00:00 09:00:[address] [facility] 2019-12-13 2019-12-13 [facility] [id number] Common 11:53:00 11:53:[address] [facility] 2019-11-21 2019-11-21 [facility] [id number] Common 11:25:00 11:25:[address] [facility] 2019-11-18 2019-11-18 [facility] [id number] Common 08:45:00 08:45:[address] [facility] 2019-11-14 2019-11-14 [facility] [id number] Common 16:00:00 16:00:[address] [facility] 2019-11-05 2019-11-05 [facility] [id number] Common 14:00:00 14:00:[address] [facility] 2019-10-23 2019-10-23 [facility] [id number] Common 14:00:00 14:00:[address] [facility] 2019-10-23 2019-10-23 [facility] [id number] Common 13:00:00 13:00:[address] [facility] 2019-09-11 2019-09-11 [facility] [id number] Common 16:41:00 16:41:[address] [facility] 2019-08-29 2019-08-29 [facility] [id number] Common 09:26:00 09:26:[address] [facility] 2019-08-21 2019-08-21 [facility] [id number] Common 10:52:00 10:52:[address] [facility] 2019-08-14 2019-08-14 [facility] [id number] Common 13:30:00 13:30:[address] [facility] Results Test Description Test Time Test Comments Results Result Comments Source GLUCOSE BEDSIDE 2022-11-08 22:50:00 Test Item Value Reference Range Interpretation Comme nts GLUCOSE BEDSIDE (test code = 118 MG/DL 70-110 H Performed by certified buzzsaw operator at [facility]) [facility] [id number] 16:34:00 Test Item Value Reference Range Interpretation Comments ACT-ISTAT (test code 227 SEC 74-137 H Perform ed by certified = ACTI) buzzsaw operator at [facility] GLUCOSE [id number] 15:07:00 Test Item Value Reference Range Interpretation Comments GLUCOSE BEDSIDE (test 87 MG/DL 70-110 N Perfor med by certified code = GLUBED) buzzsaw operator at [facility] - CT ABD PELVIS W/O [id number] 00:00:00 [facility] 1945 Sex: F Name: NATALIE FULLER [facility] : 1945 Age/S: 77 / F [address] [place] [address] Unit #: [id number] Loc: [place] [address] Phys: Noe Peter MD Acct: [id number] Dis Date: Status: ADM IN PHONE #: [phone] Exam Date: 11/08/20222054 FAX #: [phone] Reason: RETROPERITONEAL BLEEDING EXAMS: CPT CODE: [id number] CT ABD PELVIS W/O CONT 93821 PROCEDURE INFORMATION: Exam: CT Abdomen And Pelvis Without Contrast Exam date and time: 11/08/2022 8:46 PM Age: 77 years old Clinical indication: Condition or disease; Other: Retroperitoneal bleeding TECHNIQUE: Imaging protocol: Computed tomography of the abdomen and pelvis without contrast. Radiation optimization: All CT scans at this facility use atleast one of these dose optimization techniques: automated exposure control; mA and/or kV adjustmentper patient size (includes targeted exams where dose is matched to clinical indication); or iterative reconstruction. REPORTING DATA: Count of CT and Cardiac [...] dilation. Spleen: Normal. No splenomegaly. Adrenal glands: Normal. No mass. Kidneys and ureters: Normal. No hydronephrosis. Stomach and bowel: Unremarkable. No obstruction. No mucosal thickening. Proximal colon contains a large amount stool. Appendix: No evidence ofappendicitis. Intraperitoneal space: Unremarkable. No free air. No [...] 1 Signed Report (CONTINUED) Name: NATALIE FULLER [facility] : 1945 Age/S: 77 / F [address] [place] [address] Unit #: [id number] Loc: [place] [address] Phys: Noe Peter MD Acct: [id number] Dis Date: Status: ADM IN PHONE #: [phone] Exam Date: 11/08/20222054 FAX #: [phone] Reason: RETROPERITONEAL BLEEDING EXAMS: CPT CODE: [id number] CT ABD PELVIS W/O CONT 65567 (Continued) at 2240 Reported and signed by: Marcus Burnett M.D. CC: Noe Peter MD Technologist:Linda Hollingsworth, RT(R) CTDI: DLP: Trnscb Date/Time: 11/08/2022 (2239) [email or web address] Orig Print D/T: S: 11/08/2022 (2239) PAGE 2 Signed Report- XR CHEST 2 [id number] 12:38:00 [facility] 1945 Sex: F FAX:Noe Lobo MD [phone] [place]: St: PRE Name: NATALIE FULLER [facility] : 1945 Age/S: 77/F [address] [place] [address] Unit #: [id number] Loc: [place] [address] Phys: Noe Peter MD Acct: [id number] Dis Date: Status: PRE SDC PHONE #: [phone] Exam Date: 11/04/2022 1048 FAX #: [phone] Reason: PREOP EXAMS: CPT CODE: [id number] XR CHEST 2 V 20624 STUDY: Chest radiograph HISTORY: Preop COMPARISON: None. TECHNIQUE: Frontal and lateral views of the chest. LOCATION: H19 FINDINGS: The cardiac silhouette is unremarkable. There is no focal consolidation, pleural effusion, or pneumothorax. No acute osseous abnormalities are identified. IMPRESSION: No radiographic evidence for acute pulmonary abnormality. at 1238 Reported and signed by: Luis Alberto Ramírez M.D. CC: Noe Peter MD Technologist: Fidencio Partida Trnscrd Date/Time/By: 11/04/2022 (0386) : By: [email or web address] Orig Print D/T: S: 11/04/2022 (2208) PAGE 1 Signed ReportBASIC METABOLIC [id number] 11:18:00 Test Item Value Reference Range Interpretation [...] mL/min/1.73squa re meters indicate Kidney failure. The calculatio n forGFR is based on the CKD-EPI (2020) calculat ion. This formulais race indifferent and is the recommended for nakul for GFRby the [facility] Kidney Foundati on for Adults.The GFR will not calculate if th e sex is unknown or if thepatient's ag e is <18 years. CREATININE (test 0.6 mg/dL 0.6-1.3 N code = CREAT) CALCIUM (test code = 8.7 mg/dL 8.0-10.5 N CA) PROTHROMBIN [id number] 11:04:00 Test Item Value Reference Range Interpretation [...] (to prevent recurrent infar ct). CBC W/AUTO [id number] 11:00:00 Test Item Value Reference Range Interpretation [...]
[2023-04-17] MEDS ORDERED: CYCLOBENZAPRINE 10 MG TAB ONE (16:25)
--- NOTE | 2023-04-17 16:56 | RAD REPORT ---
EXAM DESCRIPTION: RAD - Lumbar Spine 3 Views - 04/17/2023 4:35 pm CLINICAL HISTORY: Back pain FINDINGS: Since December 2022 there has been further compression of L1 vertebral body. The compression fracture is now marked. Significant retropulsion of fracture fragment into the spinal canal not seen. No dislocation Osteoporosis Cholelithiasis. Small left renal calculus
[2023-04-17 17:01] LABS: Specific Gravity > 1.030 (1.005-1.030); Urine Bacteria None Seen /HPF (<20); Urine Bilirubin NEGATIVE (Negative); Urine Blood Negative (Negative); Urine Clarity Extremely Turbid (Clear); Urine Color Yellow (Yellow); Urine Crystals Unidentified Few /HPF (None Seen); Urine Glucose 3+ (Negative); Urine Granular Casts 0-5 /LPF (None Seen); Urine Mucus 4+ /HPF (None Seen); Urine Protein 1+ (Negative); Urine Urobilinogen 1+ (Normal)
--- NOTE | 2023-04-17 17:27 | ER ---
Nurse's Notes [facility] Name: Luanne Fuller Age: 77 yrs Sex: Female : 1945 Arrival Date: 04/17/2023 Time: 15:56 Bed 11 Private MD: Diagnosis: Low back pain;L1 Vertebral Compression Fracture Presentation: 04/17 16:06 Chief complaint: Low back pain x 5 days. Coronavirus screen: At this time, the client hb does not indicate any symptoms associated with coronavirus-19. Ebola Screen: No symptoms or risks identified at this time. Initial Sepsis Screen: Does the patient meet any 2 criteria? No. Patient's initial sepsis screen is negative. Does the patient have a suspected source of infection? No. Patient's initial sepsis screen is negative. Risk Assessment: Do you want to hurt yourself or someone else? Patient reports no desire to harm self or others. Onset of symptoms was April 13, 2023. 16:06 Method Of Arrival: Ambulatory hb 16:06 Acuity: DAYANA 4 hb Triage Assessment: 16:15 General: Appears in no apparent distress. comfortable, Behavior is calm, cooperative. cm10 Pain: Complains of pain in back. EENT: No deficits noted. No signs and/or symptoms were reported regarding the EENT system. Neuro: No deficits noted. Stover Agitation-Sedation Scale (RASS): 0 - Alert and Calm Level of Consciousness is awake, alert, obeys commands, Oriented to person, place, time, situation. Cardiovascular: No deficits noted. Patient's skin is warm and dry. Respiratory: No deficits noted. Airway is patent Respiratory effort is even, unlabored, Respiratory pattern is regular, symmetrical. Derm: No deficits noted. No signs and/or symptoms reported regarding the dermatologic system. Skin is intact, Skin is pink, warm \T\ dry. Musculoskeletal: No deficits noted. Range of motion: intact in all extremities, Reports pain in back. Historical: - Allergies: 16:07 PENICILLINS; hb - PMHx: 16:07 Diabetes - IDDM; hb - Immunization history:: Adult Immunizations unknown. - Social history:: Smoking status: unknown. Screenin:16 [facility] ED Fall Risk Assessment (Adult) History of falling in the last 3 months, cm10 including since admission Yes- single mechanical fall (1 pt) Confusion or Disorientation No (0 pts) Intoxicated or Sedated No (0 pts) Impaired Gait Yes (1 pt) Mobility Assist Device Used No (0 pt) Altered Elimination No (0 pt) Score/Fall Risk Level 0 - 2 = Low Risk Oriented to surroundings, Maintained a safe environment, Educated pt \T\ family on fall prevention, incl call for assistance when getting out of bed, Hourly rounding (assess needs \T\ fall precautionary measures) done. Abuse screen: Denies threats or abuse. Denies injuries from another. Nutritional screening: No deficits noted. Tuberculosis screening: No symptoms or risk factors identified. Assessment: 16:15 Reassessment: Pt ambulating to restroom at this time. cm10 Vital Signs: 16:06 BP 151 / 55; Pulse 88; Resp 18; Temp 98.5(O); Pulse Ox 100% on R/A; Weight 58.97 kg; hb Height 5 ft. 3 in. ; Pain 4/10; 16:06 Body Mass Index 23.03 (58.97 kg, 160.02 cm) hb 16:06 Pain Scale: Adult hb ED Course: 15:58 Patient arrived in ED. rg4 16:00 Dg Fry DO is Attending Physician. ms3 16:07 Triage completed. hb 16:17 Patient has correct armband on for positive identification. Bed in low position. Call cm10 light in reach. Side rails up X 1. Provided Education on: ER process and procedures. . 16:36 Lumbar Spine (3 Views) XRAY In Process Unspecified. EDMS 16:43 Urinalysis w/ reflexes Sent. ap3 17:35 Arm band placed on Patient placed in an exam room. cm10 17:35 No provider procedures requiring assistance completed. Patient did not have IV access cm10 during this emergency room visit. Administered Medications: 16:15 Drug: Cyclobenzaprine PO 10 mg PO once Route: PO; cm10 17:35 Follow up: Response: No adverse reaction; Pain is decreased cm10 16:15 Drug: HYDROcodone-acetaminophen PO 5 mg-325 mg 1 tabs PO once Route: PO; cm10 17:34 Follow up: Response: No adverse reaction cm10 Medication: 16:16 VIS not applicable for this client. cm10 Outcome: 17:26 Discharge ordered by . ms3 17:35 Discharged to home ambulatory, with family, cm10 17:35 Condition: good 17:35 Discharge instructions given to patient, Instructed on discharge instructions, follow up and referral plans. medication usage, Demonstrated understanding of instructions, follow-up care, medications, Prescriptions given X 1, 17:35 Patient left the ED. cm10 Signatures: Dispatcher [employer] EDMS Nelly Tyler, Earline Cannon RN rg4 Victoria Law RN RN ap3 Dg Fry DO DO ms3 Jodi Andujar RN RN cm10
--- NOTE | 2023-04-17 17:27 | EDPHYS ---
Physician Documentation [facility] Name: Luanne Fuller Age: 77 yrs Sex: Female : 1945 Arrival Date: 04/17/2023 Time: 15:56 Bed 11 Private MD: ED Physician Dg Fry HPI: 04/17 16:07 This 77 yrs old Female presents to ER via Unassigned with complaints of Back ms3 Pain. 16:07 77-year-old female presents to the emergency department for back pain and generalized ms3 weakness that became worse on . Patient's daughter states patient fell this summer and has had continued pain since that time. Patient was seen at a primary care physician every month since the fall. Patient denies urinary symptoms. Patient states her pain is currently 4/10 located on the left side. Patient denies any alleviating or inciting factors. Historical: - Allergies: 16:07 PENICILLINS; hb - PMHx: 16:07 Diabetes - IDDM; hb - Immunization history:: Adult Immunizations unknown. - Social history:: Smoking status: unknown. ROS: 16:07 Constitutional: Negative for fever, and chills. Neck: Negative for injury, pain, and ms3 swelling, Cardiovascular: Negative for chest pain, and palpitations. Respiratory: Negative for shortness of breath, cough, wheezing, and pleuritic chest pain, Abdomen/GI: Negative for abdominal pain, nausea, vomiting, diarrhea, and constipation, 16:07 Back: Positive for Pain, 16:07 All other systems are negative, Exam: 16:07 Constitutional: This is a well developed, well nourished patient who is awake, alert, ms3 and in no acute distress. Head/Face: Normocephalic, atraumatic. Neck: Trachea midline, no cervical lymphadenopathy. Supple, full range of motion without nuchal rigidity, or vertebral point tenderness. No Meningismus. Chest/axilla: Normal chest wall appearance and motion. Nontender with no deformity. Cardiovascular: Regular rate and rhythm with a normal S1 and S2. No gallops, murmurs, or rubs. Normal PMI, no JVD. No pulse deficits. Respiratory: Lungs have equal breath sounds bilaterally, clear to auscultation and percussion. No rales, rhonchi or wheezes noted. No increased work of breathing, no retractions or nasal flaring. Abdomen/GI: Soft, non-tender, with normal bowel sounds. No distension or tympany. No guarding or rebound. No evidence of tenderness throughout. 16:07 Back: pain, that is mild, ROM is normal, normal spinal alignment noted, CVA tenderness, is absent, vertebral tenderness, is not appreciated, muscle spasm, is appreciated in the left low back, Vital Signs: 16:06 BP 151 / 55; Pulse 88; Resp 18; Temp 98.5(O); Pulse Ox 100% on R/A; Weight 58.97 kg; hb Height 5 ft. 3 in. ; Pain 4/10; 16:06 Body Mass Index 23.03 (58.97 kg, 160.02 cm) hb 16:06 Pain Scale: Adult hb MDM: 16:07 Differential diagnosis: Fracture Metastatic Disease vertebral fracture. ms3 16:09 Patient medically screened. ms3 17:29 Data reviewed: vital signs, nurses notes, and as a result, I will discharge patient. I ms3 considered the following discharge prescriptions or medication management in the emergency department Medications were administered in the Emergency Department. See MAR. Counseling: I had a detailed discussion with the patient and/or guardian regarding the historical points, exam findings, and any diagnostic results supporting the discharge/admit diagnosis, lab results, radiology results, to return to the emergency department if symptoms worsen or persist or if there are any questions or concerns that arise at home. ED course: Discussed labs and L1 compression fracture with the patient and her daughter. Patient to follow-up Dr. Mace in 2 to 3 days. Patient understands agrees plan. All questions were answered. Return precautions discussed include worsening symptoms, or any other concerns. Patient ambulatory in emergency department, alert, no apparent distress, nontoxic-appearing, improved. 04/17 16:07 Order name: Urinalysis w/ reflexes; Complete Time: 17:02 ms3 04/17 16:06 Order name: Lumbar Spine (3 Views) XRAY; Complete Time: 17:02 ms3 Administered Medications: 16:15 Drug: Cyclobenzaprine PO 10 mg PO once Route: PO; cm10 17:35 Follow up: Response: No adverse reaction; Pain is decreased cm10 16:15 Drug: HYDROcodone-acetaminophen PO 5 mg-325 mg 1 tabs PO once Route: PO; cm10 17:34 Follow up: Response: No adverse reaction cm10 Disposition Summary: 04/17/23 17:26 Discharge Ordered Notes: Location: Home ms3 Condition: Stable ms3 Diagnosis - Low back pain ms3 - L1 Vertebral Compression Fracture ms3 Followup: ms3 - With: Private Physician - When: 2 - 3 days - Reason: Re-evaluation by your physician Discharge Instructions: - Discharge Summary Sheet ms3 - Acute Back Pain, Adult ms3 Forms: - Medication Reconciliation Form ms3 - Thank You Letter ms3 - Antibiotic Education ms3 - Prescription Opioid Use ms3 - Patient Portal Instructions ms3 - Leadership Thank You Letter ms3 Prescriptions: - Cyclobenzaprine 5 mg Oral Tablet - take 1 tablet ORAL route 3 times per day As needed; 15 tablet; Refills: 0, ms3 Product Selection Permitted Signatures: Dispatcher [employer] Nelly Marie RN RN hb Sims, Marcus, DO DO ms3 Jodi Andujar RN RN cm10
[2023-04-17 18:21] VITALS: BP 151/55; TEMP 98.5; O2SAT 100
== END 2023-04-17 17:35 | disposition home or self-care (01) ==
LOC: ER 15:56
DX: S32.019A Unspecified fracture of first lumbar vertebra, initial encounter for closed fracture (principal); E11.8 Type 2 diabetes mellitus with unspecified complications; R03.0 Elevated blood-pressure reading, without diagnosis of hypertension; M54.50 Low back pain, unspecified; W19.XXXA Unspecified fall, initial encounter; Z88.0 Allergy status to penicillin; Z79.4 Long term (current) use of insulin
CPT/HCPCS: 72100; 81001; 99283

== ENCOUNTER 2024-08-06 17:51 | Emergency (ER) | payer OTHER ==
[2024-08-06 20:13] LABS: Absolute Eosinophils 0.1 K/uL (0-0.5); Absolute Lymphocytes (CBC) 1.7 K/uL (0.7-4.9); Absolute Monocytes 0.6 K/uL (0.1-1.3); Absolute Neutrophil 4.3 K/uL (1.8-8.0); Basophils % 0.2 % (0-1.3); Eosinophils % 1.7 % (0-4.4); Hematocrit 23.8 % (36.0-45.0); Hemoglobin 7.6 g/dL (12.0-15.0); Lymphocytes % 25.7 % (15.3-44.8); MCH 28.3 pg (27.0-35.0); MCV 88.6 fL (80-100); MPV 8.5 fL (7.6-11.3); Neutrophils % 63.4 % (41.7-73.7); Nucleated RBC Absolute Count 0.1 (0-0); Nucleated Red Blood Cells % 0.7 % (0-0); Platelets 241 thou/uL (152-406); RBC Red Blood Cell Count 2.69 M/uL (3.86-4.86); Red Cell Distribution Width 15.7 % (12.1-15.2)
[2024-08-06 20:30] LABS: PT Prothrombin Time 10.8 SECONDS (10.0-13.0); PTT, Activated Partial Thromb 23.3 SECONDS (24.3-36.9); Protime INR 0.94
[2024-08-06 20:38] LABS: ALT/SGPT 56 U/L (13-56); AST/SGOT 43 U/L (15-37); Albumin 2.5 g/dL (3.4-5.0); Albumin/Globulin Ratio 0.8 (1.1-1.8); Alkaline Phosphatase 79 U/L (45-117); BUN Blood Urea Nitrogen 33 mg/dL (7-18); Bicarbonate 32 mEq/L (21-32); Globulin 3.2 g/dL (2.3-3.5); Glomerular Filtration Rate 57 ml/min (=/>90); Glucose Level 277 mg/dL (74-106); Lipase 53 U/L (13-75); Protein, Total 5.7 g/dL (6.4-8.2); Sodium Level 138 mEq/L (136-145)
[2024-08-06 20:40] LABS: Bilirubin Total < 0.2 mg/dL (0.2-1.0)
--- NOTE | 2024-08-06 21:09 | EDPHYS ---
Physician Documentation [facility] Name: Luanne Fuller Age: 78 yrs Sex: Female : 1945 Arrival Date: 08/06/2024 Time: 17:51 Bed 18 Private MD: ED Physician Warren Kearns HPI: 08/06 18:59 This 78 yrs old Female presents to ER via Ambulatory with complaints of rn Abnormal Lab Results. 18:59 Patient reports had lab draw last week in clinic, notified today was anemic and to come rn to emergency room. Patient reports generalized malaise and dizziness. Denies blood in stool. Reports dark stool but is taking iron supplements. No abdominal pain. No blood in urine. Has never needed a blood transfusion before.. Onset: The symptoms/episode began/occurred at an unknown time. Severity of symptoms: At their worst the symptoms were mild in the emergency department the symptoms are unchanged. The patient has not experienced similar symptoms in the past. Historical: - Allergies: 18:25 PENICILLINS; ld1 - Home Meds: 18:25 clopidogrel 75 mg Oral tablet 1 tab daily [Active]; ld1 - PMHx: 18:25 Diabetes - IDDM; Hypertensive disorder; ld1 - PSHx: 18:25 Total abdominal hysterectomy; ld1 - Immunization history:: Adult Immunizations up to date. - Infectious Disease History:: Denies. - Social history:: Smoking status: Patient denies any tobacco usage or history of. - Family history:: not pertinent. - Hospitalizations: : No recent hospitalization is reported. ROS: 18:59 Constitutional: Negative for fever, chills, and weight loss, Cardiovascular: Negative rn for chest pain, palpitations, and edema, Respiratory: Negative for shortness of breath, cough, wheezing, and pleuritic chest pain, Abdomen/GI: Negative for abdominal pain, nausea, vomiting, diarrhea, and constipation, MS/Extremity: Negative for injury and deformity, Skin: Negative for injury, rash, and discoloration, Neuro: Positive for generalized weakness and malaise Exam: 18:59 Constitutional: This is a well developed, well nourished patient who is awake, alert, rn and in no acute distress. Cardiovascular: Regular rate and rhythm. No pulse deficits. Respiratory: No increased work of breathing, no retractions or nasal flaring. Abdomen/GI: Soft, non-tender MS/ Extremity: Pulses equal, no cyanosis. Neuro: Awake and alert, GCS 15 Vital Signs: 18:26 BP 144 / 56; Pulse 85; Resp 18; Temp 97.6(TE); Pulse Ox 99% on R/A; Height 5 ft. 2 in. ;ld1 18:29 Pain 0/10; ld1 18:29 Weight 57.15 kg; ld1 20:39 BP 156 / 60; Pulse 75; Resp 18 S; Temp 98.6; Pulse Ox 95% on R/A; aa10 21:45 BP 117 / 47; Pulse 69; Resp 20; Temp 98.6; Pulse Ox 95% on R/A; aa10 22:53 BP 146 / 46; Pulse 71; Resp 20; Temp 98.1; Pulse Ox 98% on R/A; MAP 71 mmHg; aa10 03/05 00:19 BP 168 / 59; Pulse 68; Resp 18; Temp 98.6; Pulse Ox 98% on R/A; aa10 18:29 Pain Scale: Adult ld1 MDM: 03 17:58 Medical Screening Exam initiated rn 20:35 Differential Diagnosis Anemia, chronic anemia. Data reviewed: vital signs, nurses rn notes, lab test result(s), and as a result, I will admit patient. Consideration of Admission/Observation Escalation of care including admission/observation considered. Refusal of service: The patient/guardian displays adequate decision making capability and despite a detailed discussion of alternatives, benefits, risks, and consequences refuses: Admission to the hospital for further work-up and treatment. ED course: Had long discussion with patient and family member. Spoke with them about anemia. Patient reports having dark stool but has had dark stool for 1 year and coincided with the onset of iron supplementation. Patient has never had intestinal bleeding. Offered admission for workup for anemia as well as transfusion and patient and family declined. They prefer to get transfusion and go home. Explained to them that we cannot completely rule out GI bleed and still technically could have small bleed and they understand. They will follow-up with PCP and GI as needed. Will transfuse 1 unit and discharged home per their wishes.. 21:09 ED course: I personally spent 35 minutes engaged in work directly related to the rn individual patient's care. This does not include any time spent performing procedures. The patient has been deemed critically ill because of requiring blood transfusion. 08/06 18:33 Order name: Type And Screen rn 08/06 18:33 Order name: CBC with Diff; Complete Time: 20:23 rn 08/06 18:33 Order name: CMP rn 08/06 18:33 Order name: Lipase rn 08/06 18:33 Order name: Protime (+inr); Complete Time: 20:35 rn 08/06 18:33 Order name: Ptt, Activated; Complete Time: 20:35 rn 08/06 21:40 Order name: ABO/RH no charge EDIN 08/06 21:43 Order name: Packed RBC Leukored EDIN 08/06 18:33 Order name: IV Start; Complete Time: 20:06 rn 08/06 18:33 Order name: Labs collected and sent; Complete Time: 20:06 rn 08/06 20:35 Order name: Transfuse; Complete Time: 22:52 rn Administered Medications: No medications were administered Disposition Summary: 08/06/24 21:09 Discharge Ordered Notes: Location: Home rn Problem: an ongoing problem rn Symptoms: have improved rn Condition: Stable rn Diagnosis - Anemia, unspecified rn Followup: rn - With: Private Physician - When: As needed - Reason: Recheck today's complaints, Re-evaluation by your physician Discharge Instructions: - Discharge Summary Sheet rn - Anemia rn - Blood Transfusion, Adult rn Forms: - Medication Reconciliation Form rn - Antibiotic tavern keeper - Prescription Opioid Use rn - Patient Portal Instructions rn - Leadership 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 Total time: 35 minutes rn Signatures: Dispatcher [employer] Warren Barnes MD MD rn Sims, Lauren, RN RN ld1 Corrections: (The following items were deleted from the chart) 18:34 18:34 CBC+H.LAB.BRZ ordered. EDMS EDMS 18:34 18:34 COMPREHENSIVE METABOLIC PANEL+C.LAB.BRZ ordered. EDMS EDMS 18:34 18:34 LIPASE+C.LAB.BRZ ordered. EDMS EDMS 18:34 18:34 Urinalysis+U.LAB.BRZ ordered. EDMS EDMS 18:34 18:34 PROTIME (+INR)+COAG.LAB.BRZ ordered. EDMS EDMS 18:34 18:34 PTT, ACTIVATED+COAG.LAB.BRZ ordered. EDMS EDMS 18:34 18:34 TYPE AND SCREEN+BB.LAB.BRZ ordered. EDMS EDMS 18:34 18:34 Abdomen Pelvis W Con+CT.RAD.BRZ ordered. EDMS EDMS
--- NOTE | 2024-08-06 21:09 | ER ---
Nurse's Notes [facility] Name: Luanne Fuller Age: 78 yrs Sex: Female : 1945 Arrival Date: 08/06/2024 Time: 17:51 Bed 18 Private MD: Diagnosis: Anemia, unspecified Presentation: 08/06 18:26 Chief complaint: Patient states: Low hemoglobin levels per blood draw this week. Pt c/o ld1 weakness X 2 weeks. Denies ABD pain, no appetite. Coronavirus screen: At this time, the client does not indicate any symptoms associated with coronavirus-19. Ebola Screen: No symptoms or risks identified at this time. Initial Sepsis Screen: Does the patient meet any 2 criteria? No. Patient's initial sepsis screen is negative. Does the patient have a suspected source of infection? No. Patient's initial sepsis screen is negative. Risk Assessment: Do you want to hurt yourself or someone else? Patient reports no desire to harm self or others. Onset of symptoms was August 06, 2024. 18:26 Method Of Arrival: Ambulatory ld1 18:26 Acuity: DAYANA 3 ld1 Triage Assessment: 18:26 General: Appears in no apparent distress. comfortable, Behavior is calm, cooperative, ld1 appropriate for age. Pain: Denies pain. EENT: No signs and/or symptoms were reported regarding the EENT system. Neuro: Level of Consciousness is awake, alert, obeys commands, Oriented to person, place, time, situation. Cardiovascular: Capillary refill < 3 seconds Patient's skin is warm and dry. Respiratory: Airway is patent Respiratory effort is even, unlabored. GI: Abdomen is round non-distended. : No signs and/or symptoms were reported regarding the genitourinary system. Derm: No signs and/or symptoms reported regarding the dermatologic system. Musculoskeletal: No signs and/or symptoms reported regarding the musculoskeletal system. Historical: - Allergies: 18:25 PENICILLINS; ld1 - Home Meds: 18:25 clopidogrel 75 mg Oral tablet 1 tab daily [Active]; ld1 - PMHx: 18:25 Diabetes - IDDM; Hypertensive disorder; ld1 - PSHx: 18:25 Total abdominal hysterectomy; ld1 - Immunization history:: Adult Immunizations up to date. - Infectious Disease History:: Denies. - Social history:: Smoking status: Patient denies any tobacco usage or history of. - Family history:: not pertinent. - Hospitalizations: : No recent hospitalization is reported. Screenin:41 [facility] ED Fall Risk Assessment (Adult) History of falling in the last 3 months, aa10 including since admission No falls in past 3 months (0 pts) Confusion or Disorientation No (0 pts) Intoxicated or Sedated No (0 pts) Impaired Gait Mobility Assist Device Used No (0 pt) Altered Elimination No (0 pt) Score/Fall Risk Level 0 - 2 = Low Risk Oriented to surroundings, Maintained a safe environment, Educated pt \T\ family on fall prevention, incl call for assistance when getting out of bed, Assessed \T\ reinforced patient's understanding of fall precautions, Provided non-skid footwear, Hourly rounding (assess needs \T\ fall precautionary measures) done. Abuse screen: Denies threats or abuse. Denies injuries from another. Nutritional screening: No deficits noted. Tuberculosis screening: No symptoms or risk factors identified. Assessment: 20:40 General: Appears in no apparent distress. Behavior is calm, cooperative, appropriate aa10 for age, Smells of Reports feeling ill for for the past week. Pain: Denies pain. Neuro: No deficits noted. Level of Consciousness is awake, alert, obeys commands, Oriented to person, place, time, situation, Appropriate for age Stage Hand are equal bilaterally Moves all extremities. Gait is steady, Speech is normal. Cardiovascular: No deficits noted. Capillary refill < 3 seconds Clubbing of nail beds is absent JVD is absent. Respiratory: No deficits noted. Airway is patent Trachea midline. 21:44 Reassessment: patient has been discharged however she is pending blood transfusion. aa10 21:46 Reassessment: Patient appears in no apparent distress at this time. No changes from aa10 previously documented assessment. Patient and/or family updated on plan of care and expected duration. Pain level reassessed. Patient is alert, oriented x 3, equal unlabored respirations, skin warm/dry/pink. 22:48 Reassessment: blood transfusion commenced at this time, patient was assessed and aa10 monitored, for the first 15min, no sign of transfusion reaction, will continue plan of care. Vital Signs: 18:26 BP 144 / 56; Pulse 85; Resp 18; Temp 97.6(TE); Pulse Ox 99% on R/A; Height 5 ft. 2 in. ;ld1 18:29 Pain 0/10; ld1 18:29 Weight 57.15 kg; ld1 20:39 BP 156 / 60; Pulse 75; Resp 18 S; Temp 98.6; Pulse Ox 95% on R/A; aa10 21:45 BP 117 / 47; Pulse 69; Resp 20; Temp 98.6; Pulse Ox 95% on R/A; aa10 22:53 BP 146 / 46; Pulse 71; Resp 20; Temp 98.1; Pulse Ox 98% on R/A; MAP 71 mmHg; aa10 03/ 00:19 BP 168 / 59; Pulse 68; Resp 18; Temp 98.6; Pulse Ox 98% on R/A; aa10 18:29 Pain Scale: Adult ld1 ED Course: 08/06 17:57 Patient arrived in ED. cj3 17:58 Warren Kearns MD is Attending Physician. rn 18:26 Arm band placed on right wrist. ld1 18:29 Triage completed. ld1 19:42 Radiology exam delayed due to lab results not completed at this time. IV insertion jc4 attempt and/or patient not having appropriate IV at this time. 20:05 Type And Screen Sent. aa10 20:06 Protime (+inr) Sent. aa10 20:06 Ptt, Activated Sent. aa10 20:06 CBC with Diff Sent. aa10 20:06 CMP Sent. aa10 20:06 Lipase Sent. aa10 20:26 Type And Screen Sent. aa10 20:26 Protime (+inr) Sent. aa10 20:26 Ptt, Activated Sent. aa10 20:26 CMP Sent. aa10 20:26 Lipase Sent. aa10 20:42 Patient has correct armband on for positive identification. Allergy band placed. Fall aa10 risk band placed. Placed in gown. Bed in low position. Call light in reach. Side rails up X2. Provided Education on: Blood Transfusion, about plan of care. 20:42 Inserted saline lock: 18 gauge in right antecubital area, using aseptic technique. aa10 21:52 Notified primary nurse of blood is ready and will need to be picked up from lab. kmf 22:52 Packed RBC Leukored Sent. aa10 22:53 No provider procedures requiring assistance completed. aa10 08/07 00:20 IV discontinued. aa10 Administered Medications: No medications were administered Medication: 08/06 20:41 VIS not applicable for this client. aa10 Outcome: 21:09 Discharge ordered by . rn 08/07 00:20 Discharged to home via wheelchair, aa10 Condition: good Discharge instructions given to patient, Instructed on discharge instructions, Demonstrated understanding of instructions, 00:21 Patient left the ED. aa10 Signatures: Warren Kearns MD MD rn Sims, Lauren, RN RN ld1 Annel [facility] Semaj Mobley jc4 Yolanda Ramos RN RN aa10 Caterina Cline cj3 Corrections: (The following items were deleted from the chart) 08/06 18:30 18:26 Chief complaint: Patient states: Low hemoglobin levels per blood draw this week. ld1 Pt c/o weakness ld1 18:30 18:29 70.76 kg; Pain 0/10, Adult; ld1 ld1
[2024-08-06] MEDS ORDERED: NA CHLORIDE 0.9% 250 ML ONE (22:25)
[2024-08-07 00:48] VITALS: O2SAT 98
[2024-08-07 00:49] VITALS: BP 168/59; TEMP 98.6
== END 2024-08-07 00:21 | disposition home or self-care (01) ==
LOC: ER 17:51
PROC: 30233N1 Transfusion of Nonautologous Red Blood Cells into Peripheral Vein, Percutaneous Approach (ICD-10-PCS; principal; 2024-08-07)
DX: D64.9 Anemia, unspecified (principal); E11.9 Type 2 diabetes mellitus without complications; I10 Essential (primary) hypertension
CPT/HCPCS: 85025; 36415; 86900; 86850; 85610; 86901; 85730; 86920; 83690; 80053; 99284; 36430; P9016; J7050